=== PATIENT | female | born 1990 | race Caucasian/White ===

== ENCOUNTER 2018-02-28 13:09 | Emergency (ER) | payer OTHER, MEDICAID, SELFPAY ==
[2018-02-28 13:13] VITALS: BP 155/84; PULSE 78; RESP 18; TEMP 36.2; O2SAT 99; BMI 44.9
[2018-02-28 13:49] LABS: Bacteria Urine None Seen
[2018-02-28 14:00] LABS: RBC Urine 0-1/HPF (0-5/HPF); Squamous Epithelial Cell Urine 1-5 /HPF; WBC Urine 0-1/HPF (0-5/HPF)
[2018-02-28 14:01] LABS: Culture Indicated Urine Cult Not Indicated
[2018-02-28] MEDS: KETOROLAC 60 MG/2 ML VIAL IM (16:09)
[2018-02-28 16:28] LABS: Add Manual Diff / Slide Review NO; Basophils Percent Auto 0.9 % (0-2); Eosinophils Percent Auto 3.1 % (2-4); Hematocrit 40.9 % (36-46); Hemoglobin 13.3 g/dL (12.0-16.0); Lymphocytes Percent Auto 30.6 % (25-40); Mean Corpuscular HGB Conc 32.6 % (30-36); Mean Corpuscular Volume 79.9 fL (80-100); Monocytes Percent Auto 6.5 % (3-14); Neutrophils Absolute Auto 5100 /uL (3000-5900); Neutrophils Percent Auto 58.9 % (50-75); Platelet Count 356 X10^3/uL (150-400); Red Blood Cell Count 5.12 X10^6/uL (4.0-5.2); Red Cell Distribution Width 14.9 % (11.6-14.8); White Blood Cell Count 8.6 X10^3/uL (4.5-11.0)
--- NOTE | 2018-02-28 16:28 | ED.ABDPAIN ---
HPI - Abdominal Pain General Chief Complaint: Abdominal Pain Stated Complaint: GASTRITIS DISCOMFORT IN STOMACH Time Seen by Provider: 02/28/18 15:51 Source: patient Mode of arrival: ambulatory Limitations: no limitations History of Present Illness HPI narrative: Patient is a 27-year-old female who presents with ongoing abdominal pain and diarrhea for the last 2 months. She says that she was multiple times a day every time she eats. She has not lost any weight. She sometimes has nausea and vomiting. Diarrhea wakes her from her sleep at night. It is loose and runny nonbloody. He is told by walk-in clinic today at she probably needs an ultrasound and come to the ED. She has lower abdominal pain and discomfort no upper quadrant pain. MD complaint: abdominal pain Related Data Home Medications Medication Instructions Recorded Confirmed hydroxyzine pamoate 25 mg PO PRN #112 cap 12/16/17 02/28/18 lamotrigine 150 mg PO QPM #28 12/16/17 02/28/18 prazosin 1 mg PO HS #28 cap 12/16/17 02/28/18 trazodone 100 mg PO HS #28 12/16/17 02/28/18 asenapine [Saphris (black bedolla)] 02/28/18 citalopram 20 mg PO DAILY 02/28/18 02/28/18 gabapentin 300 mg PO DAILY 02/28/18 02/28/18 hydroxyzine pamoate 02/28/18 lurasidone [Latuda] 40 mg PO DAILY 02/28/18 02/28/18 mirtazapine 7.5 mg PO DAILY 02/28/18 02/28/18 Previous Rx's Medication Instructions Recorded metformin [Glucophage XR] 500 mg PO BID #60 tab 11/05/17 loperamide 2 mg capsule 2 mg PO Q2-4H PRN #60 cap 02/28/18 omeprazole 40 mg capsule,delayed 40 mg PO DAILY #30 cap 02/28/18 release Allergies Allergy/AdvReac Type Severity Reaction Status Date / Time No Known Drug Allergies Allergy Verified 02/28/18 13:13 Review of Systems Review of Systems All systems reviewed & are unremarkable except as noted in HPI and below Constitutional Denies frequent falls ENT Ears, Nose, Mouth, and Throat: Denies dizziness Cardiovascular Denies dyspnea and Denies dyspnea on exertion Respiratory Denies cough, Denies dyspnea, Denies dyspnea on exertion and Denies wheezing Gastrointestinal Gastrointestinal: Reports system reviewed and no additional complaints, except as docu, Reports change in bowel habits and Reports loose stools Musculoskeletal Denies numbness Neurologic Denies behavioral changes, Denies confusion, Denies dizziness, Denies frequent falls and Denies numbness Psychiatric Denies behavioral changes and Denies confusion Allergic/Immunologic Denies wheezing PFSH Medical History Bipolar 1 disorder (Acute) Family History Father Age: 48 Hypertension Mental health problem Mother Age: 44 Cancer Grandmother Age: 76 Cancer Mental health problem Sister Age: 29 Palsy Social History Smoking Status: Current every day smoker alcohol intake: never substance use type: does not use Exam Initial Vital Signs Initial Vital Signs: Vital Signs Temperature 97.2 F L 02/28/18 13:13 Pulse Rate 78 02/28/18 13:13 Respiratory Rate 18 02/28/18 13:13 Blood Pressure 155/84 H 02/28/18 13:13 Pulse Oximetry 99 02/28/18 13:13 GENERAL: Well-appearing, well-nourished and in no acute distress. HEENT: Head atraumatic,EOMI, pupils reactive CARDIOVASCULAR: Regular rate and rhythm without murmurs, rubs or gallops. RESPIRATORY: Breath sounds equal bilaterally, no wheezes rales or rhonchi. ABDOMEN: Soft, nontender. Normoactive bowel sounds all 4 quadrants. No guarding or rebound. No right upper quadrant pain negative Sanchez : No CVA tenderness EXTREMITIES: Normal range of motion, no clubbing or edema. Neurovascularly intact NEUROLOGICAL: Alert and oriented x4.Normal gait and speech. SKIN: Warm, dry, no laceration, no petechiae, no rashes or lesions. Course Orders Ordered: ED Orders 02/28/18 13:17 Urine Microscopic Stat 02/28/18 16:17 Complete Blood Count AUTO DIFF Stat Comprehensive Metabolic Panel Stat Lipase Stat Discontinued Medications Ketorolac Tromethamine (Toradol) 60 mg IM NOW ONE Stop: 02/28/18 15:58 Last Admin: 02/28/18 16:09 Dose: 60 mg Vital Signs - 8 hr 02/28/18 13:13 02/28/18 17:09 Temperature 97.2 F L Pulse Rate 78 64 Respiratory Rate 18 Blood Pressure 155/84 H 122/76 H Pulse Oximetry 99 100 MDM - Abdominal Pain Lab Data Result diagrams: 02/28/18 16:17 06/29/18 16:17 Lab Results 02/28/18 02/28/18 02/28/18 Range/Units 13:17 16:17 16:17 WBC 8.6 (4.5-11.0) X10^3/uL RBC 5.12 (4.0-5.2) X10^6/uL Hgb 13.3 (12.0-16.0) g/dL Hct 40.9 (36-46) % MCV 79.9 L (80-100) fL MCH 26.0 (26-34) PG MCHC 32.6 (30-36) % RDW 14.9 H (11.6-14.8) % Plt Count 356 (150-400) X10^3/uL Neut % (Auto) 58.9 (50-75) % Lymph % (Auto) 30.6 (25-40) % [place] % (Auto) 6.5 (3-14) % Eos % (Auto) 3.1 (2-4) % Baso % (Auto) 0.9 (0-2) % Neut # (Auto) 5100 (7895-5189) /uL Sodium 140 (137-145) mmol/L Potassium 4.1 (3.4-5.1) mmol/L Chloride 104 (98-107) mmol/L Carbon Dioxide 26 (22-32) mmol/L BUN 7 (7-17) mg/dL Creatinine 0.80 (0.52-1.04) mg/dL Estimated GFR > 60.0 (>60) mL/min BUN/Creatinine Ratio 8.8 (6-22) Glucose 78 (70-100) mg/dL Calcium 9.1 (8.4-10.2) mg/dL Total Bilirubin 0.5 (0.2-1.3) mg/dL AST 30 (14-36) IU/L ALT 45 (9-52) IU/L Alkaline Phosphatase 83 (38-126) U/L Total Protein 7.6 (6.3-8.2) g/dL Albumin 4.4 (3.5-5.0) g/dL Globulin 3.2 (1.7-4.1) g/dL Albumin/Globulin Ratio 1.4 (1.0-2.8) Lipase 57 (23-300) U/L Urine RBC 0-1/hpf (0-5/HPF) Urine WBC 0-1/hpf (0-5/HPF) Ur Squamous Epith Cells 1-5 /hpf Urine Bacteria None seen (None) Ur Culture Indicated? Cult not indicated Micro UA Comment Not Reportable Point of care testing: Point of Care Testing Test Results Negative Urine Dip Bedside Urine Glucose Negative Bedside Urine Bilirubin + 1 Bedside Urine Ketone + 15 Urine Specific [place] 1.030 Bedside Urine Occult Blood - Negative Bedside Urine pH 6.0 Bedside Urine Protein +/- 15 Bedside Urine Urobilinogen - Negative Bedside Urine Nitrite - Negative Bedside Urine Leukocytes - Negative Esterase MDM Narrative Medical decision making narrative: Patient has chronic ongoing diarrhea without any abnormalities and blood work. No right upper quadrant pain, no sign of acute cholecystitis no need for ultrasound at this time. Discharge Plan Departure Patient Disposition: Home, Self-Care Clinical Impression: Diarrhea Discharge Date/Time: 02/28/18 17:11 Interventions: ED Discharge Assessment Last Done: 02/28/18 17:09 Instructions: Diarrhea Activity Restrictions/Additional Instructions: *You have been diagnosed with diarrhea *What to do: Blood work within normal limits, no need for ultrasound at this, follow up with primary care provider for further evaluation *Continue to take medications as directed *Follow up with your primary care provider in 2-3 days *Return to ER if you should have any new, worsening or concerning symptoms Prescriptions: No Action loperamide [Anti-Diarrheal (loperamide)] 2 mg capsule 2 mg PO Q2-4H PRN (Reason: loose stool) Qty: 60 RF: 0 omeprazole 40 mg capsule,delayed release(DR/EC) 40 mg PO DAILY Qty: 30 RF: 0 metformin [Glucophage XR] 500 MG tablet extended release 24 hr 500 mg PO BID Qty: 60 RF: 3 lamotrigine 150 MG tablet 150 mg PO QPM Qty: 28 RF: 0 prazosin 1 MG capsule 1 mg PO HS Qty: 28 RF: 0 hydroxyzine pamoate 25 MG capsule 25 mg PO PRN Qty: 112 RF: 0 trazodone 100 MG tablet 100 mg PO HS Qty: 28 RF: 0 hydroxyzine pamoate 50 mg capsule RF: 0 citalopram 20 mg tablet 20 mg PO DAILY RF: 0 gabapentin 300 mg capsule 300 mg PO DAILY RF: 0 mirtazapine 15 mg tablet 7.5 mg PO DAILY RF: 0 asenapine [Saphris (black bedolla)] 10 mg tablet, sublingual RF: 0 lurasidone [Latuda] 40 mg tablet 40 mg PO DAILY RF: 0 Referrals: Karuna Caceres DO [Primary Care Provider] -
[2018-02-28 16:40] LABS: Alanine Aminotransferase 45 IU/L (9-52); Albumin 4.4 g/dL (3.5-5.0); Albumin Globulin Ratio 1.4 (1.0-2.8); Alkaline Phosphatase 83 U/L (38-126); Aspartate Aminotransferase 30 IU/L (14-36); BUN Creatinine Ratio 8.8 (6-22); Bilirubin Total 0.5 mg/dL (0.2-1.3); Blood Urea Nitrogen 7 mg/dL (7-17); Calcium 9.1 mg/dL (8.4-10.2); Carbon Dioxide 26 mmol/L (22-32); Chloride 104 mmol/L (98-107); Estimated Glomerular Filt Rate > 60.0 mL/min (>60); Globulin 3.2 g/dL (1.7-4.1); Glucose 78 mg/dL (70-100); HEMOLYSIS < 15 (0-50); Lipase 57 U/L (23-300); Potassium 4.1 mmol/L (3.4-5.1); Sodium 140 mmol/L (137-145); Total Protein 7.6 g/dL (6.3-8.2)
[2018-02-28 17:09] VITALS: BP 122/76; PULSE 64; O2SAT 100
== END 2018-02-28 17:11 | disposition home or self-care (01) ==
PROVIDERS: Emergency Provider Emergency Medicine; PCP Family Medicine
DX: R19.7 Diarrhea, unspecified (principal)
CPT/HCPCS: 36415; 80053; 81003; 81015; 81025; 83690; 85025; 96372; 99282; 99283; J1885

== ENCOUNTER → 2018-03-25 11:39 | Outpatient (CLI) | payer OTHER, MEDICAID, SELFPAY | PROVIDERS: PCP Family Medicine; Visit Provider Family Medicine | DX: Z13.29 Encounter for screening for other suspected endocrine disorder (principal); Z13.220 Encounter for screening for lipoid disorders; Z13.1 Encounter for screening for diabetes mellitus; R73.9 Hyperglycemia, unspecified ==

== ENCOUNTER → 2018-03-27 09:08 | Outpatient (CLI) | payer OTHER, MEDICAID, SELFPAY ==
[2018-03-27 10:51] LABS: Alanine Aminotransferase 33 IU/L (9-52); Albumin 4.2 g/dL (3.5-5.0); Albumin Globulin Ratio 1.4 (1.0-2.8); Alkaline Phosphatase 72 U/L (38-126); Aspartate Aminotransferase 22 IU/L (14-36); BUN Creatinine Ratio 13.8 (6-22); Bilirubin Total 0.3 mg/dL (0.2-1.3); Blood Urea Nitrogen 11 mg/dL (7-17); Calcium 9.4 mg/dL (8.4-10.2); Carbon Dioxide 24 mmol/L (22-32); Chloride 107 mmol/L (98-107); Cholesterol 208 mg/dL (140-199); Estimated Glomerular Filt Rate > 60.0 mL/min (>60); Glucose 88 mg/dL (70-100); HDL Cholesterol 44 mg/dL (40-60); HEMOLYSIS < 15 (0-50); LDL Cholesterol Calculated 145 mg/dL (<100); Potassium 4.2 mmol/L (3.4-5.1); Sodium 141 mmol/L (137-145); Total Protein 7.2 g/dL (6.3-8.2); Triglycerides 93 mg/dL (35-150)
[2018-03-27 10:54] LABS: Add Manual Diff / Slide Review NO; Basophils Percent Auto 0.8 % (0-2); Eosinophils Percent Auto 2.3 % (2-4); Hematocrit 39.7 % (36-46); Hemoglobin 13.1 g/dL (12.0-16.0); Lymphocytes Percent Auto 22.1 % (25-40); Mean Corpuscular HGB Conc 33.1 % (30-36); Mean Corpuscular Hemoglobin 26.4 PG (26-34); Mean Corpuscular Volume 79.8 fL (80-100); Monocytes Percent Auto 8.2 % (3-14); Neutrophils Absolute Auto 5500 /uL (3000-5900); Neutrophils Percent Auto 66.6 % (50-75); Platelet Count 336 X10^3/uL (150-400); Red Blood Cell Count 4.98 X10^6/uL (4.0-5.2); Red Cell Distribution Width 15.1 % (11.6-14.8); White Blood Cell Count 8.3 X10^3/uL (4.5-11.0)
[2018-03-27 11:03] LABS: Creatinine Urine Random 179.1 mg/dL
[2018-03-27 11:08] LABS: Microalbumi Creatinin Ratio Ur 4.4 ug/mg CR (<30); Microalbumin Urine Random 0.8 mg/dL (0-1.6)
[2018-03-27 11:11] LABS: Hemoglobin A1C% w Est Avg Glu 5.1 % (4.0-6.0)
[2018-03-27 11:33] LABS: Thyroid Stimulating Hormone 1.49 uIU/mL (0.47-4.68)
== END ==
PROVIDERS: PCP Family Medicine; Visit Provider Family Medicine
DX: R73.9 Hyperglycemia, unspecified (principal); Z13.1 Encounter for screening for diabetes mellitus; Z13.220 Encounter for screening for lipoid disorders; Z13.29 Encounter for screening for other suspected endocrine disorder
CPT/HCPCS: 36415; 80053; 80061; 82043; 82570; 83036; 84443; 85025

== ENCOUNTER 2018-04-27 19:53 | Emergency (ER) | payer OTHER, MEDICAID, SELFPAY ==
[2018-04-27 20:05] VITALS: BP 132/88; PULSE 80; RESP 14; TEMP 36.6; O2SAT 100; BMI 44.0
--- NOTE | 2018-04-27 20:26 | ED.BACK ---
HPI - Back Pain/Injury <Yumiko Camara PA-C - Last Filed: 04/27/18 22:08> General Chief Complaint: Back Pain/Injury Stated Complaint: SCIATIC PAIN Time Seen by Provider: 04/27/18 20:57 Source: patient Mode of arrival: wheelchair Limitations: no limitations History of Present Illness HPI Narrative: This 27-year-old female with a history of lumbar H & P and sciatica comes in this evening due to exacerbation. She has been seeing her PCP for this. She has been taking cyclobenzaprine, Vicodin, and Flexeril without relief. 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 No specific injury but has had even more pain. She had also tried Aleve and ibuprofen without relief as well as ice and heat. She states that this feels like a bad exacerbation of her typical sciatica pain, worse on the left side, but also has pain across her back and sometimes moves up into her thoracic area off and on. She states that the pain radiates down her left leg. She denies any new fever. She denies any new bowel or bladder symptoms. She denies any new weakness in her legs or other new complaints on systems review. She denies any changes in her medical history since visit a few days ago with PCP. She denies any possibility of and uses her NuvaRing reliably Related Data Previous Rx's Medication Instructions Recorded citalopram 20 mg tablet 20 mg PO DAILY #30 tab 03/26/18 lamotrigine 150 mg tablet 150 mg PO QPM #30 tab 03/26/18 mirtazapine 15 mg tablet 7.5 mg PO DAILY #30 tab 03/26/18 prazosin 1 mg capsule 1 mg PO HS #30 cap 03/26/18 trazodone 100 mg tablet 100 mg PO HS #30 tab 03/26/18 cyclobenzaprine 10 mg tablet 10 mg PO BEDTIME #30 tab 04/23/18 lurasidone 40 mg tablet 40 mg PO DAILY #30 tab 04/23/18 gabapentin 300 mg PO Q8H #15 cap 04/27/18 Allergies Allergy/AdvReac Type Severity Reaction Status Date / Time No Known Drug Allergies Allergy Verified 04/27/18 20:09 Review of Systems <Yumiko Camara PA-C - Last Filed: 04/27/18 22:08> Review of Systems All systems reviewed & are unremarkable except as noted in HPI and below Exam <Yumiko Camara PA-C - Last Filed: 04/27/18 22:08> Narrative Exam Narrative: GENERAL APPEARANCE: Patient lying on her right side, in NAD PULMONARY: Lungs clear to auscultation bilaterally CV: Regular rhythm regular without murmur, normal S1 and S2, no S3 or S4 MUSCULOSKELETAL: She has some generalized mid to inferior lumbar tenderness, more on the left. Most tenderness over the left SI joint. Mild on the right. She has reduced range of motion of the trunk secondary to tenderness. She is able to move from supine to sit and stand on her own and ambulate to the restroom. Lower extremity strength 5/5 bilateral hip flexors, knee extensors, foot plantar flexion. Negative modified straight leg raise bilaterally NEUROLOGIC: Bilateral patellar and Achilles DTRs 2+ Initial Vital Signs Initial Vital Signs: Vital Signs Temperature 97.9 F 04/27/18 20:05 Pulse Rate 80 04/27/18 20:05 Respiratory Rate 14 04/27/18 20:05 Blood Pressure 132/88 H 04/27/18 20:05 Pulse Oximetry 100 04/27/18 20:05 <Aleks Corral DO - Last Filed: 04/28/18 00:14> Initial Vital Signs Initial Vital Signs: Vital Signs Temperature 97.9 F 04/27/18 20:05 Pulse Rate 80 04/27/18 20:05 Respiratory Rate 14 04/27/18 20:05 Blood Pressure 132/88 H 04/27/18 20:05 Pulse Oximetry 100 04/27/18 20:05 Course <Yumiko Camara PA-C - Last Filed: 04/27/18 22:08> Additional Information: Patient appeared more comfortable prior to discharge, was chatting with her friend at on her cell phone though she reported continued pain. She will try gabapentin tonight and has had a Toradol injection. Advised she can take a [place] tonight when she returns home. She will remain off work tomorrow since her symptoms worsened significantly today, however encouraged continued activity and gentle walking, but to avoid twisting and lifting. She will get in touch with her PCP tomorrow regarding follow-up and her physical therapy referral. She was warned not to drive while using current medications due to possible drowsiness. She agreed to return if any acutely worsening symptoms. Orders Ordered: Discontinued Medications Gabapentin (Neurontin) 300 mg PO NOW ONE Stop: 04/27/18 21:14 Last Admin: 04/27/18 21:38 Dose: 300 mg Ketorolac Tromethamine (Toradol) 60 mg IM NOW ONE Stop: 04/27/18 21:14 Last Admin: 04/27/18 21:22 Dose: 60 mg Vital Signs - 8 hr 04/27/18 20:05 04/27/18 21:30 04/27/18 22:11 Temperature 97.9 F 97.9 F Pulse Rate 80 68 77 Respiratory Rate 14 16 16 Blood Pressure 132/88 H 155/81 H Blood Pressure [Left Wrist] 148/97 H Pulse Oximetry 100 98 97 <Aleks Corral DO - Last Filed: 04/28/18 00:14> Orders Ordered: Discontinued Medications Gabapentin (Neurontin) 300 mg PO NOW ONE Stop: 04/27/18 21:14 Last Admin: 04/27/18 21:38 Dose: 300 mg Ketorolac Tromethamine (Toradol) 60 mg IM NOW ONE Stop: 04/27/18 21:14 Last Admin: 04/27/18 21:22 Dose: 60 mg Vital Signs - 8 hr 04/27/18 20:05 04/27/18 21:30 04/27/18 22:11 Temperature 97.9 F 97.9 F Pulse Rate 80 68 77 Respiratory Rate 14 16 16 Blood Pressure 132/88 H 155/81 H Blood Pressure [Left Wrist] 148/97 H Pulse Oximetry 100 98 97 Discharge Plan Departure Patient Disposition: Home Clinical Impression: Sciatica, Muscle spasm, Sacro-iliac pain Discharge Date/Time: 04/27/18 22:11 Interventions: ED Discharge Assessment Last Done: 04/27/18 22:11 Instructions: DI for Sciatica, DI Sacroiliac Joint Dysfunction Activity Restrictions/Additional Instructions: Please return as we talked about if you have any acutely worsening symptoms such as leg weakness or inability to urinate. Otherwise, since you have tried multiple other medications, we have restarted your gabapentin tonight. 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 Please remember this and several of the other medications that you are trying including hydrocodone/acetaminophen, cyclobenzaprine, and diazepam can be sedating and you should not drive while taking them. Please remain off of work tomorrow and call your PCP 1st thing in the morning to set up follow-up and see what is happening with your physical therapy referral. When you go to the pharmacy tomorrow, you may also wish to poultry picker some [id number] 4% lidocaine patches. These are available in various brands. You can wear them all day in your most painful areas to see if there helpful, and you can use them with your oral medications. Prescriptions: New gabapentin 300 mg capsule 300 mg PO Q8H Qty: 15 RF: 0 No Action cyclobenzaprine 10 mg tablet 10 mg PO BEDTIME Qty: 30 RF: 0 citalopram 20 mg tablet 20 mg PO DAILY Qty: 30 RF: 0 lamotrigine 150 mg tablet 150 mg PO QPM Qty: 30 RF: 0 mirtazapine 15 mg tablet 7.5 mg PO DAILY Qty: 30 RF: 0 prazosin 1 mg capsule 1 mg PO HS Qty: 30 RF: 0 trazodone 100 mg tablet 100 mg PO HS Qty: 30 RF: 0 lurasidone 40 mg tablet 40 mg PO DAILY Qty: 30 RF: 0 Referrals: Karuna Caceres DO [Primary Care Provider] - Stand Alone Forms: Work/School Restrictions <Aleks Corral DO - Last Filed: 04/28/18 00:14> [facility] [place] Attestation: I was immediately available in the department for consultation. Documentation has been reviewed. I agree with assessment and plan.
[2018-04-27] MEDS: KETOROLAC 60 MG/2 ML VIAL IM (21:22)
[2018-04-27 21:30] VITALS: BP 148/97; PULSE 68; RESP 16; TEMP 36.6; O2SAT 98
[2018-04-27] MEDS: GABAPENTIN 300 MG CAPSULE PO (21:38)
--- NOTE | 2018-04-27 21:41 | PC.NURSE ---
pt states kaleb been dealing with this for a long time, I have sciatica. pt reports a 10/10 pain. pt is supine on stretcher calm and cooperative talking on her cell phone.
[2018-04-27 22:11] VITALS: BP 155/81; PULSE 77; RESP 16; O2SAT 97
== END 2018-04-27 22:11 | disposition home or self-care (01) ==
PROVIDERS: Emergency Provider Internal Medicine; PCP Family Medicine
DX: M54.40 Lumbago with sciatica, unspecified side (principal)
CPT/HCPCS: 96372; 99282; 99283; J1885

== ENCOUNTER 2018-05-02 22:03 | Emergency (ER) | payer OTHER, MEDICAID, SELFPAY ==
[2018-05-02 22:24] VITALS: BP 135/78; PULSE 67; RESP 16; TEMP 36.8; O2SAT 97; BMI 44.8
--- NOTE | 2018-05-03 00:17 | ED.BACK ---
HPI - Back Pain/Injury General Chief Complaint: Back Pain/Injury Stated Complaint: LOWER BACK PAIN TOWARDS NECK Time Seen by Provider: 05/03/18 00:00 Source: patient Mode of arrival: ambulatory Limitations: no limitations History of Present Illness HPI Narrative: 27-year-old with long history of sciatica presents with ongoing pain. She denies any evolution of the symptoms and states it is no worse than normal but she continues to be in pain. As an outpatient she is being treated with Valium, Flexeril, Vicodin, prednisone, gabapentin. She has an upcoming appointment with physical therapy. She has never had an MRI and denies any history of referral to Orthopedics. She denies any new injury. She has no fever or chills. Her pain is not midline but in her left lower region. She denies any trouble bowel or bladder control. She denies any lower extremity weakness or foot drop. MD Complaint: back pain Onset (ago): year(s) Duration: constant Similar Symptoms Previously: Yes Location: lumbar spine Severity: moderate Quality: burning and sharp Radiation: left leg Relieving factors: immobilization Exacerbating factors: movement and walking Associated symptoms: difficulty walking Treatments prior to arrival: other medications and prescription analgesics Related Data Previous Rx's Medication Instructions Recorded citalopram 20 mg tablet 20 mg PO DAILY #30 tab 03/26/18 lamotrigine 150 mg tablet 150 mg PO QPM #30 tab 03/26/18 mirtazapine 15 mg tablet 7.5 mg PO DAILY #30 tab 03/26/18 prazosin 1 mg capsule 1 mg PO HS #30 cap 03/26/18 trazodone 100 mg tablet 100 mg PO HS #30 tab 03/26/18 cyclobenzaprine 10 mg tablet 10 mg PO BEDTIME #30 tab 04/23/18 lurasidone 40 mg tablet 40 mg PO DAILY #30 tab 04/23/18 gabapentin 300 mg PO Q8H #15 cap 04/27/18 diazepam 5 mg tablet 5 mg PO BID-TID PRN #18 tab 05/01/18 hydrocodone 5 mg-acetaminophen 325 1 tab PO Q6-8H PRN #18 tab 05/01/18 mg tablet prednisone 20 mg tablet See Label Instructions PO DAILY 10 05/01/18 Days #11 tab Allergies Allergy/AdvReac Type Severity Reaction Status Date / Time No Known Drug Allergies Allergy Verified 05/02/18 22:29 Review of Systems Review of Systems All systems reviewed & are unremarkable except as noted in HPI and below Constitutional Denies chills, Denies fever(s), Denies lethargy and Denies weakness Eyes Denies change in vision, Denies eye discharge, Denies irritation and Denies loss of vision ENT Ears, Nose, Mouth, and Throat: Denies change in voice, Denies neck pain and Denies sore throat Cardiovascular Denies chest pain, Denies irregular heart rhythm, Denies lightheadedness, Denies palpitations, Denies dyspnea, Denies dyspnea on exertion and Denies orthopnea Respiratory Denies cough, Denies dyspnea, Denies dyspnea on exertion and Denies wheezing Gastrointestinal Gastrointestinal: Denies abdominal pain, Denies change in bowel habits, Denies diarrhea, Denies nausea and Denies vomiting Genitourinary Denies hematuria, Denies flank pain, Denies urinary incontinence and Denies urinary urgency Musculoskeletal Reports back pain and Denies neck pain Integumentary/Breasts Denies pruritus, Denies erythema, Denies rash and Denies wounds Neurologic Denies confusion, Denies loss of vision and Denies weakness Psychiatric Denies anxiety, Denies confusion, Denies depression, Denies homicidal ideation and Denies suicidal ideation Endocrine Denies palpitations Hematologic/Lymphatic Denies easy bruising Allergic/Immunologic Denies wheezing PFSH Medical History Bipolar 1 disorder (Acute) ADHD (attention deficit hyperactivity disorder) (Chronic Unknown) Anxiety (Chronic Unknown) Depression (Chronic Unknown) Generalized headaches (Chronic Unknown) Hypertension (Chronic 2012) Migraines (Chronic Unknown) PTSD (post-traumatic stress disorder) (Chronic Unknown) Hx of suicide attempt (Resolved Unknown) Surgical History Hx of section (Resolved Unknown) Hx of myringotomy (Resolved Unknown) Hx of tonsillectomy (Resolved 2003) Family History Father Age: 48 Hypertension Mental health problem Mother Age: 44 Cancer Grandmother Age: 76 Cancer Mental health problem Sister Age: 29 Palsy Social History Smoking Status: Current every day smoker Tobacco: How many years used: 10 alcohol intake: never substance use type: does not use Exam Narrative Exam Narrative: GEN: AOx3 and in mild distress EYES: Pupils are equal, round, and reactive to light and accommodation. Extraoccular muscles are intact bilaterally. There is no subconjunctival hemorrhage or exudate. CHEST: Lungs are clear to auscultation bilaterally and free of wheezes, rales, or rhonchi. Heart rate is regular rhythm, there are no murmurs, clicks, rubs, or gallops. There is no chest wall tenderness. ABD: Abdomen is soft and nontender. There is no guarding or rebound. Bowel sounds are normal in all 4 quadrants. There is no mass or organomegaly. EXT: Full painless ROM of all extremities with no loss of sensation or strength. SKIN: Warm, pink, and dry. No erythema or rash BACK: plating equipment tender but free of any obvious external abnormalities. Patient exam notes decreased range of motion and muscle spasm, but no CVA tenderness, or vertebral point tenderness. There are no symptoms of cauda equina such as saddle anesthesia, and decreased reflexes, decreased sensation or strength. Initial Vital Signs Initial Vital Signs: Vital Signs Temperature 98.3 F 05/02/18 22:24 Pulse Rate 67 05/02/18 22:24 Respiratory Rate 16 05/02/18 22:24 Blood Pressure 135/78 05/02/18 22:24 Pulse Oximetry 97 05/02/18 22:24 Course Orders Ordered: Discontinued Medications Ketorolac Tromethamine (Toradol) 60 mg IM NOW ONE Stop: 05/03/18 01:13 Last Admin: 05/03/18 01:15 Dose: 60 mg Vital Signs - 8 hr 05/02/18 22:24 05/03/18 01:28 Temperature 98.3 F 97.1 F L Pulse Rate 67 61 Respiratory Rate 16 20 Blood Pressure 135/78 Blood Pressure [Left Arm] 124/78 Pulse Oximetry 97 97 Discharge Plan Departure Patient Disposition: Home Clinical Impression: Lumbar disc disease with radiculopathy Discharge Date/Time: 05/03/18 01:44 Interventions: ED Discharge Assessment Last Done: 05/03/18 01:39 Instructions: DI for Lumbar Radiculopathy Activity Restrictions/Additional Instructions: *You have been diagnosed with [ chronic lumbar radiculopathy ] *What to do: *Take medications as directed *Follow up with your primary care provider in 2-3 days, call for an appointment. Let them know you were seen in the Emergency Department and that we ask that you be seen in follow up. It seems reasonable to consider orthopedic consultation. Have included contact info should she choose to follow up with them *Return to ER if you should have any new, worsening or concerning symptoms Prescriptions: No Action cyclobenzaprine 10 mg tablet 10 mg PO BEDTIME Qty: 30 RF: 0 hydrocodone-acetaminophen [Lorcet (hydrocodone)] 5-325 mg tablet 1 tab PO Q6-8H PRN (Reason: pain) Qty: 18 RF: 0 diazepam 5 mg tablet 5 mg PO BID-TID PRN (Reason: muscle spasm) Qty: 18 RF: 0 prednisone 20 mg tablet See Label Instructions PO DAILY 10 Days Qty: 11 RF: 0 citalopram 20 mg tablet 20 mg PO DAILY Qty: 30 RF: 0 lamotrigine 150 mg tablet 150 mg PO QPM Qty: 30 RF: 0 mirtazapine 15 mg tablet 7.5 mg PO DAILY Qty: 30 RF: 0 prazosin 1 mg capsule 1 mg PO HS Qty: 30 RF: 0 trazodone 100 mg tablet 100 mg PO HS Qty: 30 RF: 0 lurasidone 40 mg tablet 40 mg PO DAILY Qty: 30 RF: 0 gabapentin 300 mg capsule 300 mg PO Q8H Qty: 15 RF: 0 Referrals: Estiven Miranda MD [Physician] - Karnua Caceres DO [Primary Care Provider] -
[2018-05-03] MEDS: KETOROLAC 60 MG/2 ML VIAL IM (01:15)
[2018-05-03 01:28] VITALS: BP 124/78; PULSE 61; RESP 20; TEMP 36.2; O2SAT 97
== END 2018-05-03 01:44 | disposition home or self-care (01) ==
PROVIDERS: Emergency Provider Emergency Medicine; PCP Family Medicine
DX: M54.16 Radiculopathy, lumbar region (principal)
CPT/HCPCS: 96372; 99282; 99283; J1885

== ENCOUNTER 2018-05-14 22:05 | Emergency (ER) | payer OTHER, MEDICAID, SELFPAY ==
[2018-05-14 22:46] VITALS: BP 154/90; PULSE 107; RESP 18; TEMP 37.2; O2SAT 97
[2018-05-14 22:55] VITALS: BP 154/90; PULSE 107; RESP 18; TEMP 37.2; O2SAT 97
[2018-05-15 01:24] VITALS: BP 154/90; PULSE 107; RESP 18; TEMP 37.2; O2SAT 97
--- NOTE | 2018-05-16 04:54 | ED_ITS ---
HPI - URI/Sore Throat General Chief Complaint: Upper Respiratory Symptoms Stated Complaint: ITCHY THROAT, CHILLS Time Seen by Provider: 05/15/18 00:02 Source: patient Mode of arrival: ambulatory Limitations: no limitations History of Present Illness HPI Narrative: 27-year-old patient well known to myself and other staff with chronic back pain presents with typical URI symptoms including runny nose, sore throat and hacking cough. She denies any significant fever, productive sputum or chest pain. She is not dizzy nor weak or lightheaded. She denies nausea, vomiting or diarrhea. MD Complaint: rhinorrhea and nasal congestion Onset (ago): day(s) Duration: constant Severity: mild Related Data Home Medications Medication Instructions Recorded Confirmed lurasidone 40 mg tablet 80 mg PO DAILY tab 05/14/18 Previous Rx's Medication Instructions Recorded citalopram 20 mg tablet 20 mg PO DAILY #30 tab 03/26/18 lamotrigine 150 mg tablet 150 mg PO QPM #30 tab 03/26/18 mirtazapine 15 mg tablet 7.5 mg PO DAILY #30 tab 03/26/18 prazosin 1 mg capsule 1 mg PO HS #30 cap 03/26/18 trazodone 100 mg tablet 100 mg PO HS #30 tab 03/26/18 cyclobenzaprine 10 mg tablet 10 mg PO BEDTIME #30 tab 04/23/18 diazepam 5 mg tablet 5 mg PO BID-TID PRN #18 tab 05/01/18 hydrocodone 5 mg-acetaminophen 325 1 tab PO Q6-8H PRN #18 tab 05/01/18 mg tablet Allergies Allergy/AdvReac Type Severity Reaction Status Date / Time No Known Drug Allergies Allergy Verified 05/14/18 09:52 Review of Systems Review of Systems All systems reviewed & are unremarkable except as noted in HPI and below Constitutional Denies chills, Denies fever(s), Denies lethargy and Denies weakness Eyes Denies change in vision, Denies eye discharge, Denies irritation and Denies loss of vision ENT Ears, Nose, Mouth, and Throat: Denies change in voice, Reports nasal congestion , Denies neck pain and Reports sore throat Cardiovascular Denies chest pain, Denies irregular heart rhythm, Denies lightheadedness, Denies palpitations, Denies dyspnea, Denies dyspnea on exertion and Denies orthopnea Respiratory Reports chest congestion, Reports cough, Denies dyspnea, Denies dyspnea on exertion and Denies wheezing Gastrointestinal Gastrointestinal: Denies abdominal pain, Denies change in bowel habits, Denies diarrhea, Denies nausea and Denies vomiting Genitourinary Denies hematuria, Denies flank pain, Denies urinary incontinence and Denies urinary urgency Musculoskeletal Denies neck pain Integumentary/Breasts Denies pruritus, Denies erythema, Denies rash and Denies wounds Neurologic Denies confusion, Denies loss of vision and Denies weakness Psychiatric Denies anxiety, Denies confusion, Denies depression, Denies homicidal ideation and Denies suicidal ideation Endocrine Denies palpitations Hematologic/Lymphatic Denies easy bruising Allergic/Immunologic Denies wheezing [facility] Medical History Bipolar 1 disorder (Acute) ADHD (attention deficit hyperactivity disorder) (Chronic Unknown) Anxiety (Chronic Unknown) Depression (Chronic Unknown) Generalized headaches (Chronic Unknown) Hypertension (Chronic 2012) Migraines (Chronic Unknown) PTSD (post-traumatic stress disorder) (Chronic Unknown) Hx of suicide attempt (Resolved Unknown) Surgical History Hx of section (Resolved Unknown) Hx of myringotomy (Resolved Unknown) Hx of tonsillectomy (Resolved 2004) Family History Father Age: 48 Hypertension Mental health problem Mother Age: 44 Cancer Grandmother Age: 76 Cancer Mental health problem Sister Age: 29 Palsy Social History Smoking Status: Current every day smoker Tobacco: How many years used: 10 alcohol intake: never substance use type: does not use Exam Narrative Exam Narrative: GEN: AOx3 and in mild distress EYES: Pupils are equal, round, and reactive to light and accommodation. Extraoccular muscles are intact bilaterally. There is no subconjunctival hemorrhage or exudate. ENT: nasal congestion, post nasal drip CHEST: Lungs are clear to auscultation bilaterally and free of wheezes, rales, or rhonchi. Heart rate is regular rhythm, there are no murmurs, clicks, rubs, or gallops. There is no chest wall tenderness. ABD: Abdomen is soft and nontender. There is no guarding or rebound. Bowel sounds are normal in all 4 quadrants. There is no mass or organomegaly. EXT: Full painless ROM of all extremities with no loss of sensation or strength. SKIN: Warm, pink, and dry. No erythema or rash Initial Vital Signs Initial Vital Signs: Vital Signs Temperature 99 F 05/14/18 22:46 Pulse Rate 107 H 05/14/18 22:46 Respiratory Rate 18 05/14/18 22:46 Blood Pressure 154/90 H 05/14/18 22:46 Pulse Oximetry 97 05/14/18 22:46 Course Vital Signs - 8 hr 05/14/18 22:46 05/14/18 22:55 05/15/18 01:24 Temperature 99 F 99 F 99 F Pulse Rate 107 H 107 H 107 H Respiratory Rate 18 18 18 Blood Pressure 154/90 H 154/90 H 154/90 H Pulse Oximetry 97 97 97 MDM - URI/Sore Throat Lab Data Point of Care Testing Rapid Strep A Negative Discharge Plan Departure Patient Disposition: Home Clinical Impression: Upper respiratory infection, viral Discharge Date/Time: 05/15/18 02:30 Interventions: ED Discharge Assessment Last Done: 05/15/18 02:30 Instructions: Common Cold Activity Restrictions/Additional Instructions: *You have been diagnosed with [acute viral upper respiratory infection ] *What to do: *Take medications as directed: over the counter cough and cold medicine *Follow up with your primary care provider in 2-3 days, call for an appointment. Let them know you were seen in the Emergency Department and that we ask that you be seen in follow up *Return to ER if you should have any new, worsening or concerning symptoms Prescriptions: No Action cyclobenzaprine 10 mg tablet 10 mg PO BEDTIME Qty: 30 RF: 0 hydrocodone-acetaminophen [Lorcet (hydrocodone)] 5-325 mg tablet 1 tab PO Q6-8H PRN (Reason: pain) Qty: 18 RF: 0 diazepam 5 mg tablet 5 mg PO BID-TID PRN (Reason: muscle spasm) Qty: 18 RF: 0 lurasidone 40 mg tablet 80 mg PO DAILY RF: 0 citalopram 20 mg tablet 20 mg PO DAILY Qty: 30 RF: 0 lamotrigine 150 mg tablet 150 mg PO QPM Qty: 30 RF: 0 mirtazapine 15 mg tablet 7.5 mg PO DAILY Qty: 30 RF: 0 prazosin 1 mg capsule 1 mg PO HS Qty: 30 RF: 0 trazodone 100 mg tablet 100 mg PO HS Qty: 30 RF: 0
== END 2018-05-15 02:30 | disposition home or self-care (01) ==
PROVIDERS: Emergency Provider Emergency Medicine; Family Provider Family Medicine; PCP Family Medicine
DX: J06.9 Acute upper respiratory infection, unspecified (principal); B97.89 Other viral agents as the cause of diseases classified elsewhere
CPT/HCPCS: 87880; 99282

== ENCOUNTER 2018-06-24 09:00 | Outpatient (RCR) | payer OTHER, MEDICAID, SELFPAY ==
--- NOTE | 2018-05-21 16:00 | PT.OIE ---
Current Diagnoses Sciatica, unspecified side (05/21/18) Muscle spasm of back (05/21/18) Past Medical History (Last Reviewed 05/16/18 @ 04:55 by Aleks Corral DO) Bipolar 1 disorder (Acute) ADHD (attention deficit hyperactivity disorder) (Chronic Unknown) Anxiety (Chronic Unknown) Depression (Chronic Unknown) Generalized headaches (Chronic Unknown) Hypertension (Chronic 2012) Migraines (Chronic Unknown) PTSD (post-traumatic stress disorder) (Chronic Unknown) Hx of suicide attempt (Resolved Unknown) Past Surgical History (Last Reviewed 05/16/18 @ 04:55 by Aleks Corral DO) Hx of section (Resolved Unknown) Hx of myringotomy (Resolved Unknown) Hx of tonsillectomy (Resolved 2003) Provider Visit Care Team Role Provider Type Karuna Caceres DO Attending Provider Physician Family Provider Primary Care Provider Specialty: Family Practice Address: [address] [place] [address] Email: [email or web address] Physical Therapy Initial Evaluation PT-OP-A Visit Information Start: 05/21/18 12:25 Freq: Status: Active Protocol: Document 05/21/18 12:28 EA (Rec: 05/21/18 12:56 EA [id number]) Out-Patient Physical Therapy Visit Information Visit Information Visit Type Initial Evaluation Visit Start Time 09:45 Visit Stop Time 10:20 Total Visit Minutes 35 Visit Number 1 Evaluation Information Evaluation Date 05/21/18 PT-OP-B Current Condition Start: 05/21/18 12:25 Freq: Status: Active Protocol: Document 05/21/18 12:28 EA (Rec: 05/21/18 12:56 EA [id number]) Current Condition History of Current Condition Onset Date 6 years ago Current Complaints Low back pain History of Current Condition Present c/o low back pain started 6 years ago which comes and goes with the use of superficial heating and prescribed pain medication. 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 Patient reports no X-rays and other diagnostic imaging perform in the past. Prior Treatments and Tests Formal skilled PT few years ago and did not completely resolved. Prescribed pain medication and muscle relaxant. Future Testing and Treatments Planned Surgical option if pain do not improve. Treatment Goals Patient/Caregiver Goals Patient wants to eliminate pain so she could perform work without discomfort or limitation. 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 Patient Reported Progress Same Patient Questionnaires Oswestry Low Back Index Oswestry Score 64% Oswestry Impairment 60 to 79% Impaired (Score 60- 79) OP-PT Pain Assessment Pain Assessment Grid Paper Pain Assessment Grid Completed Yes Location Bilateral Lower Back Intensity 6 Scale Used Numeric (1 - 10) Frequency Intermittent Pain Aggravating Factors Standing Sitting Walking Pain Alleviating Factors Heat Medication Patient Stated Pain Goal 2 Home Pain Medication Use Pain Medications Used None at this time Pain Behaviors Pain Behaviors Holding Area PT-OP-J Posture/Palpation/Skin Start: 05/21/18 12:25 Freq: Status: Active Protocol: Document 05/21/18 12:28 EA (Rec: 05/21/18 12:56 EA [id number]) Posture Evaluation Position Standing L-Spine Posture Increased Lordosis Pelvis Posture Anteriorly Tilted Palpation Assessment Location One Palpation Location Bilateral QL, Paralumbars, Upper gluteal and Piriformis Palpation Findings Soft Tissue Tightness Tenderness PT-OP-K Range of Motion Start: 05/21/18 12:25 Freq: Status: Active Protocol: Document 05/21/18 12:28 EA (Rec: 05/21/18 12:56 EA [id number]) Lumbar Spine Range of Motion Lumbar Spine Active Flexion 45 Extension 30 Rotation Left 30 Rotation Right 30 Lateral Flexion Left 25 Lateral Flexion Right 10 ROM Limitations Soft Tissue Tightness Pain PT-OP-L Special Tests Start: 05/21/18 12:25 Freq: Status: Active Protocol: Document 05/21/18 12:28 EA (Rec: 05/21/18 12:56 EA [id number]) Special Tests Lumbar Spine Special Tests Vertical Spine Loading Test Results - Straight Leg Raise Test Results + Comments Both Stork Test Test Results - Hip Special Tests Piriformis Test Results - Other Special Tests Special Tests + Sacral compression test PT-OP-M Strength Start: 05/21/18 12:25 Freq: Status: Active Protocol: Document 05/21/18 12:28 EA (Rec: 05/21/18 12:56 EA [id number]) Hip Strength Hip Manual Muscle Testing Right Flexion (L2) 3+ Fair+ Extension (S1) 4+ Good+ Abduction 4- Good- External Rotation 4 Good Internal Rotation 3+ Fair+ Left Flexion (L2) 3+ Fair+ Extension (S1) 4+ Good+ Abduction 4- Good- External Rotation 4 Good Internal Rotation 3+ Fair+ Knee Strength Knee Manual Muscle Testing Right Comments WFL Left Comments WFL Ankle/Foot Strength Ankle and Foot Manual Muscle Testing Right Comments WFL Left Comments WFL PT-OP-Q Treatments Start: 05/21/18 12:25 Freq: Status: Active Protocol: Document 05/21/18 12:56 EA (Rec: 05/21/18 12:57 EA [id number]) Self-Care/Home Management Treatment Education Patient Education Body Mechanics Home Exercise Program Pain Management Posture PT-OP-T Assessment and Plan Start: 05/21/18 12:25 Freq: Status: Active Protocol: Document 05/21/18 12:28 EA (Rec: 05/21/18 12:56 EA [id number]) Physical Therapy Assessment Rehab Potential Rehabilitation Potential Good Evaluation Complexity Number of Personal Factors/Comorbidities 3 or More Number of Body Systems Impaired 1-2 Clinical Presentation at Evaluation Stable Impairments Impairments Pain Posture ROM Strength Other Concerns Barriers to Rehabilitation Excess body weight Goals Four Impairment Sitting/standing posture tolerance less than 1 hour Duplicating Machine Servicer Goal (LTG) Patient will able to sit and stand > 1 hour with no increase in symptoms. Three Impairment Weakness to both hip flexors, rotators, and trunk stabilizer Correction Goal (LTG) Patient will increase hip flexors, rotators, trunk stabilizer by 1/2 grade to prevent mechanical dysfunction and for improve mobility. LTG Duration 4 wks. Two Impairment Oswestry impairment scale of 64% Duplicating Machine Servicer Goal (LTG) Patient will have Oswetry impairment scale of less than 20% to improve quality of life . LTG Duration 4 wks One Impairment Reported pain of 6/10 at best with standing/sitting and walking Correction Goal (LTG) Patient will report pain less than 2/10 at with standing, sitting and walking LTG Duration 4 wks Assessment Summary Assessment Pleasant 27 y/o F patient with referring diagnosis of sciatica/LBP. Today patient presented with difficulty with positional tolerance due to low back discomfort. Tests reveals limited lumbar spinal mobility with muscle guarding to most of the lumbar spinal planes of movement. SLR test and sacral compression reveals sensitive. Posterior lumbar quadrant test to facets joints is positive but not with neural foramina impingement. Weakness to both hip flexors and internal rotators was noted. Due to patient body dysfunction, she is not able to perform tasks that is normal for her age. In my professional opinion the patient will benefit with skilled PT to improve patient' s functional quality through therapeutic exercises and other conservative approach. Physical Therapy Plan Frequency and Duration Frequency of Treatment 2x/Week Duration of Treatment 8 Plan of Care Start Date 05/21/18 Plan of Care End Date 07/16/18 Therapeutic Interventions Modalities Cold Pack/Ice Massage Electric Stimulation Hot Packs Ultrasound Next Visit Focus/Plan Next Note Type Treatment Note Next Visit Plan Core stab, Flexibility, heat with ES
--- NOTE | 2018-05-21 16:00 | PT.OPPOC ---
Current Diagnoses Sciatica, unspecified side (05/21/18) Muscle spasm of back (05/21/18) Provider Visit Care Team Role Provider Type Karuna Caceres DO Attending Provider Physician Family Provider Primary Care Provider Specialty: Family Practice Address: [address] [place] [address], [id number] Email: [email or web address] Plan Of Care PT-OP-T Assessment and Plan Start: 05/21/18 12:25 Freq: Status: Active Protocol: Document 05/21/18 12:28 CRISTINA (Rec: 05/21/18 12:56 EA [id number]) Physical Therapy Assessment Rehab Potential Rehabilitation Potential Good Evaluation Complexity Number of Personal Factors/Comorbidities 3 or More Number of Body Systems Impaired 1-2 Clinical Presentation at Evaluation Stable Impairments Impairments Pain Posture ROM Strength Other Concerns Barriers to Rehabilitation Excess body weight Goals Four Impairment Sitting/standing posture tolerance less than 1 hour Pumper Gauger Goal (LTG) Patient will able to sit and stand > 1 hour with no increase in symptoms. Three Impairment Weakness to both hip flexors, rotators, and trunk stabilizer Pumper Gauger Goal (LTG) Patient will increase hip flexors, rotators, trunk stabilizer by 1/2 grade to prevent mechanical dysfunction and for improve mobility. LTG Duration 4 wks. Two Impairment Oswestry impairment scale of 64% Pumper Gauger Goal (LTG) Patient will have Oswetry impairment scale of less than 20% to improve quality of life . LTG Duration 4 wks One Impairment Reported pain of 6/10 at best with standing/sitting and walking Pumper Gauger Goal (LTG) Patient will report pain less than 2/10 at with standing, sitting and walking LTG Duration 4 wks Assessment Summary Assessment Pleasant 27 y/o F patient with referring diagnosis of sciatica/LBP. Today patient presented with difficulty with positional tolerance due to low back discomfort. Tests reveals limited lumbar spinal mobility with muscle guarding to most of the lumbar spinal planes of movement. SLR test and sacral compression reveals sensitive. Posterior lumbar quadrant test to facets joints is positive but not with neural foramina impingement. Weakness to both hip flexors and internal rotators was noted. Due to patient body dysfunction, she is not able to perform tasks that is normal for her age. In my professional opinion the patient will benefit with skilled PT to improve patient' s functional quality through therapeutic exercises and other conservative approach. Physical Therapy Plan Frequency and Duration Frequency of Treatment 2x/Week Duration of Treatment 8 Plan of Care Start Date 05/21/18 Plan of Care End Date 07/16/18 Therapeutic Interventions Modalities Cold Pack/Ice Massage Electric Stimulation Hot Packs Ultrasound Next Visit Focus/Plan Next Note Type Treatment Note Next Visit Plan Core stab, Flexibility, heat with ES Plan of Care Dates Plan of Care Start Date 05/21/18 Plan of Care End Date 07/16/18 Please Sign and Return: I have reviewed this Plan of Care and certify that the skilled therapy services above are required to meet the patient?s needs. Physician Signature Date Printed Name and Credentials Clinical Instructor Signature Printed Name and Credentials
--- NOTE | 2018-06-03 12:55 | PT.OTN ---
Current Diagnoses Sciatica, unspecified side (05/21/18) Muscle spasm of back (05/21/18) Physical Therapy Treatment Note PT-OP-A Visit Information Start: 05/21/18 12:25 Freq: Status: Active Protocol: Document 06/03/18 12:54 EA (Rec: 06/03/18 12:55 EA [id number]) Out-Patient Physical Therapy Visit Information Visit Information Visit Type Patient No Show Visit Note No show: left a message to patient voice mail. PT-OP-B Current Condition Start: 05/21/18 12:25 Freq: Status: Active Protocol: Document 05/21/18 12:28 EA (Rec: 05/21/18 12:56 EA [id number]) Current Condition History of Current Condition Onset Date 6 years ago Current Complaints Low back pain History of Current Condition Present c/o low back pain started 6 years ago which comes and goes with the use of superficial heating and prescribed pain medication. 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 Patient reports no X-rays and other diagnostic imaging perform in the past. Prior Treatments and Tests Formal skilled PT few years ago and did not completely resolved. Prescribed pain medication and muscle relaxant. Future Testing and Treatments Planned Surgical option if pain do not improve. Treatment Goals Patient/Caregiver Goals Patient wants to eliminate pain so she could perform work without discomfort or limitation. 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 Patient Reported Progress Same Patient Questionnaires Oswestry Low Back Index Oswestry Score 64% Oswestry Impairment 60 to 79% Impaired (Score 60- 79) OP-PT Pain Assessment Pain Assessment Grid Paper Pain Assessment Grid Completed Yes Location Bilateral Lower Back Intensity 6 Scale Used Numeric (1 - 10) Frequency Intermittent Pain Aggravating Factors Standing Sitting Walking Pain Alleviating Factors Heat Medication Patient Stated Pain Goal 2 Home Pain Medication Use Pain Medications Used None at this time Pain Behaviors Pain Behaviors Holding Area PT-OP-J Posture/Palpation/Skin Start: 05/21/18 12:25 Freq: Status: Active Protocol: Document 05/21/18 12:28 EA (Rec: 05/21/18 12:56 EA [id number]) Posture Evaluation Position Standing L-Spine Posture Increased Lordosis Pelvis Posture Anteriorly Tilted Palpation Assessment Location One Palpation Location Bilateral QL, Paralumbars, Upper gluteal and Periformis Palpation Findings Soft Tissue Tightness Tenderness PT-OP-K Range of Motion Start: 05/21/18 12:25 Freq: Status: Active Protocol: Document 05/21/18 12:28 EA (Rec: 05/21/18 12:56 EA [id number]) Lumbar Spine Range of Motion Lumbar Spine Active Flexion 45 Extension 30 Rotation Left 30 Rotation Right 30 Lateral Flexion Left 25 Lateral Flexion Right 10 ROM Limitations Soft Tissue Tightness Pain PT-OP-L Special Tests Start: 05/21/18 12:25 Freq: Status: Active Protocol: Document 05/21/18 12:28 EA (Rec: 05/21/18 12:56 EA [id number]) Special Tests Lumbar Spine Special Tests Vertical Spine Loading Test Results - Straight Leg Raise Test Results + Comments Both Stork Test Test Results - Hip Special Tests Piriformis Test Results - Other Special Tests Special Tests + Sacral compresson test PT-OP-M Strength Start: 05/21/18 12:25 Freq: Status: Active Protocol: Document 05/21/18 12:28 EA (Rec: 05/21/18 12:56 EA [id number]) Hip Strength Hip Manual Muscle Testing Right Flexion (L2) 3+ Fair+ Extension (S1) 4+ Good+ Abduction 4- Good- External Rotation 4 Good Internal Rotation 3+ Fair+ Left Flexion (L2) 3+ Fair+ Extension (S1) 4+ Good+ Abduction 4- Good- External Rotation 4 Good Internal Rotation 3+ Fair+ Knee Strength Knee Manual Muscle Testing Right Comments WFL Left Comments WFL Ankle/Foot Strength Ankle and Foot Manual Muscle Testing Right Comments WFL Left Comments WFL PT-OP-Q Treatments Start: 05/21/18 12:25 Freq: Status: Active Protocol: Document 05/21/18 12:56 EA (Rec: 05/21/18 12:57 EA [id number]) Self-Care/Home Management Treatment Education Patient Education [employer] Home Exercise Program Pain Management Posture PT-OP-T Assessment and Plan Start: 05/21/18 12:25 Freq: Status: Active Protocol: Document 05/21/18 12:28 EA (Rec: 05/21/18 12:56 EA [id number]) Physical Therapy Assessment Rehab Potential Rehabilitation Potential Good Evaluation Complexity Number of Personal Factors/Comorbidities 3 or More Number of Body Systems Impaired 1-2 Clinical Presentation at Evaluation Stable Impairments Impairments Pain Posture ROM Strength Other Concerns Barriers to Rehabilitation Excess body weight Goals Four Impairment Sitting/standing posture tolerance less than 1 hour [employer] Goal (LTG) Patient will ablt to sit and stand > 1 hour with no increase in symptoms. Three Impairment Weakness to both hip flexors, rotators, and trunk stabilizer [employer] Goal (LTG) Patient will increase hip flexors, rotators, trunk stabilizer by 1/2 grade to prevent mechanical dysfunction and for improve mobility. LTG Duration 4 wks. Two Impairment Oswestry impairment scale of 64% [employer] Goal (LTG) Patient will have Oswetry impairment scale of less than 20% to improve quality of life . LTG Duration 4 wks One Impairment Reported pain of 6/10 at best with standing/sitting and walking Correction Goal (LTG) Patient will report pain less than 2/10 at with standing, sitting and walking LTG Duration 4 wks Assessment Summary Assessment Pleasant 27 y/o F patient with referring diagnosis of sciatica/LBP. Today patient presented with diffficulty with positional tolerance due to low back discomfort. Tests reveals limited lumbar spinal mobility with muscle guarding to most of the lumbar spinal planes of movement. SLR test and sacral compression reveals sensitive. Posterior lumbar quadrant test to facets joints is positive but not with neural foramina impingement. Weakness to both hip flexors and internal rotators was noted. Due to patient body dysfunction, she is not able to perform tasks that is normal for her age. In my professional opinion the patient will benefit with skilled PT to improve patient' s functional quality through therapeutic exercises and other conservative approach. Physical Therapy Plan Frequency and Duration Frequency of Treatment 2x/Week Duration of Treatment 8 Plan of Care Start Date 05/21/18 Plan of Care End Date 07/16/18 Therapeutic Interventions Modalities Cold Pack/Ice Massage Electric Stimulation Hot Packs Ultrasound Next Visit Focus/Plan Next Note Type Treatment Note Next Visit Plan Core stab, Flexibility, heat with ES
--- NOTE | 2018-06-05 15:14 | PT.OTN ---
Current Diagnoses Sciatica, unspecified side (06/05/18) Muscle spasm of back (06/05/18) Physical Therapy Treatment Note PT-OP-A Visit Information Start: 05/21/18 12:25 Freq: Status: Active Protocol: Document 06/05/18 15:08 EA (Rec: 06/05/18 15:14 EA [id number]) Out-Patient Physical Therapy Visit Information Visit Information Visit Type Treatment Note Visit Start Time 14:30 Visit Stop Time 15:15 Total Visit Minutes 45 Visit Number 2 PT-OP-B Current Condition Start: 05/21/18 12:25 Freq: Status: Active Protocol: Document 05/21/18 12:28 EA (Rec: 05/21/18 12:56 EA [id number]) Current Condition History of Current Condition Onset Date 6 years ago Current Complaints Low back pain History of Current Condition Present c/o low back pain started 6 years ago which comes and goes with the use of superficial heating and prescribed pain medication. 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 Patient reports no X-rays and other diagnostic imaging perform in the past. Prior Treatments and Tests Formal skilled PT few years ago and did not completely resolved. Prescribed pain medication and muscle relaxant. Future Testing and Treatments Planned Surgical option if pain do not improve. Treatment Goals Patient/Caregiver Goals Patient wants to eliminate pain so she could perform work without discomfort or limitation. 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 Patient Reported Progress Same PT-OP-J Posture/Palpation/Skin Start: 05/21/18 12:25 Freq: Status: Active Protocol: Document 05/21/18 12:28 EA (Rec: 05/21/18 12:56 EA [id number]) Posture Evaluation Position Standing L-Spine Posture Increased Lordosis Pelvis Posture Anteriorly Tilted Palpation Assessment Location One Palpation Location Bilateral QL, Paralumbars, Upper gluteal and Periformis Palpation Findings Soft Tissue Tightness Tenderness PT-OP-K Range of Motion Start: 05/21/18 12:25 Freq: Status: Active Protocol: Document 05/21/18 12:28 EA (Rec: 05/21/18 12:56 EA [id number]) Lumbar Spine Range of Motion Lumbar Spine Active Flexion 45 Extension 30 Rotation Left 30 Rotation Right 30 Lateral Flexion Left 25 Lateral Flexion Right 10 ROM Limitations Soft Tissue Tightness Pain PT-OP-L Special Tests Start: 05/21/18 12:25 Freq: Status: Active Protocol: Document 05/21/18 12:28 EA (Rec: 05/21/18 12:56 EA [id number]) Special Tests Lumbar Spine Special Tests Vertical Spine Loading Test Results - Straight Leg Raise Test Results + Comments Both Stork Test Test Results - Hip Special Tests Piriformis Test Results - Other Special Tests Special Tests + Sacral compresson test PT-OP-M Strength Start: 05/21/18 12:25 Freq: Status: Active Protocol: Document 05/21/18 12:28 EA (Rec: 05/21/18 12:56 EA [id number]) Hip Strength Hip Manual Muscle Testing Right Flexion (L2) 3+ Fair+ Extension (S1) 4+ Good+ Abduction 4- Good- External Rotation 4 Good Internal Rotation 3+ Fair+ Left Flexion (L2) 3+ Fair+ Extension (S1) 4+ Good+ Abduction 4- Good- External Rotation 4 Good Internal Rotation 3+ Fair+ Knee Strength Knee Manual Muscle Testing Right Comments WFL Left Comments WFL Ankle/Foot Strength Ankle and Foot Manual Muscle Testing Right Comments WFL Left Comments WFL PT-OP-Q Treatments Start: 05/21/18 12:25 Freq: Status: Active Protocol: Document 06/05/18 15:08 EA (Rec: 06/05/18 15:14 EA [id number]) Cardio Equipment Recumbent Stepper (Sci-Fit) Duration (Minutes) 7 Resistance 2 Therapeutic Exercises Supine Exercises 4 Supine Exercise Name figure 4 stretch Side bilateral Reps/Minutes x 15sh x 5 repes each 3 Supine Exercise Name PPT Reps/Minutes x5sh x 10 reps 2 Supine Exercise Name Lower trunk rotation Side bilateral Reps/Minutes x 15SH x 5 reps each side 1 Supine Exercise Name SKTC Side bilateral Reps/Minutes x 5 reps x 15SH Manual Therapy Treatment Soft Tissue Mobilization 1 Mobilization Type Myofascial Release Rolling Sustained Pressure Intensity/Depth Moderate Body Position Prone PT-OP-R Modalities Start: 05/21/18 12:25 Freq: Status: Active Protocol: Document 06/05/18 15:08 EA (Rec: 06/05/18 15:14 EA [id number]) Electric Stimulation Electric Stimulation Interferential Current (IFC) Body Location Paralumabrs and upper gluetals Duration (Minutes) 15 Intensity 18 Contraction Type Normal Combined With Heat/Cold Hot Pack PT-OP-T Assessment and Plan Start: 05/21/18 12:25 Freq: Status: Active Protocol: Document 06/05/18 15:08 EA (Rec: 06/05/18 15:14 EA [id number]) Physical Therapy Assessment Assessment Summary Assessment Tolerated treatment well and educated with HEP. Pt had decreased symptoms after IFC and heat. Physical Therapy Plan Next Visit Focus/Plan Next Note Type Treatment Note Next Visit Plan Continue with current plan.
--- NOTE | 2018-06-10 16:07 | PT.OTN ---
Current Diagnoses Sciatica, unspecified side (06/10/18) Muscle spasm of back (06/10/18) Physical Therapy Treatment Note PT-OP-A Visit Information Start: 05/21/18 12:25 Freq: Status: Active Protocol: Document 06/10/18 11:02 EA (Rec: 06/10/18 11:10 EA [id number]) Out-Patient Physical Therapy Visit Information Visit Information Visit Type Treatment Note Visit Start Time 10:30 Visit Stop Time 11:25 Total Visit Minutes 55 Visit Number 3 PT-OP-B Current Condition Start: 05/21/18 12:25 Freq: Status: Active Protocol: Document 05/21/18 12:28 EA (Rec: 05/21/18 12:56 EA [id number]) Current Condition History of Current Condition Onset Date 6 years ago Current Complaints Low back pain History of Current Condition Present c/o low back pain started 6 years ago which comes and goes with the use of superficial heating and prescribed pain medication. 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 Patient reports no X-rays and other diagnostic imaging perform in the past. Prior Treatments and Tests Formal skilled PT few years ago and did not completely resolved. Prescribed pain medication and muscle relaxant. Future Testing and Treatments Planned Surgical option if pain do not improve. Treatment Goals Patient/Caregiver Goals Patient wants to eliminate pain so she could perform work without discomfort or limitation. 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 PT-OP-J Posture/Palpation/Skin Start: 05/21/18 12:25 Freq: Status: Active Protocol: Document 05/21/18 12:28 EA (Rec: 05/21/18 12:56 EA [id number]) Posture Evaluation Position Standing L-Spine Posture Increased Lordosis Pelvis Posture Anteriorly Tilted Palpation Assessment Location One Palpation Location Bilateral QL, Paralumbars, Upper gluteal and Periformis Palpation Findings Soft Tissue Tightness Tenderness PT-OP-K Range of Motion Start: 05/21/18 12:25 Freq: Status: Active Protocol: Document 05/21/18 12:28 EA (Rec: 05/21/18 12:56 EA [id number]) Lumbar Spine Range of Motion Lumbar Spine Active Flexion 45 Extension 30 Rotation Left 30 Rotation Right 30 Lateral Flexion Left 25 Lateral Flexion Right 10 ROM Limitations Soft Tissue Tightness Pain PT-OP-L Special Tests Start: 05/21/18 12:25 Freq: Status: Active Protocol: Document 05/21/18 12:28 EA (Rec: 05/21/18 12:56 EA [id number]) Special Tests Lumbar Spine Special Tests Vertical Spine Loading Test Results - Straight Leg Raise Test Results + Comments Both Stork Test Test Results - Hip Special Tests Piriformis Test Results - Other Special Tests Special Tests + Sacral compresson test PT-OP-M Strength Start: 05/21/18 12:25 Freq: Status: Active Protocol: Document 05/21/18 12:28 EA (Rec: 05/21/18 12:56 EA [id number]) Hip Strength Hip Manual Muscle Testing Right Flexion (L2) 3+ Fair+ Extension (S1) 4+ Good+ Abduction 4- Good- External Rotation 4 Good Internal Rotation 3+ Fair+ Left Flexion (L2) 3+ Fair+ Extension (S1) 4+ Good+ Abduction 4- Good- External Rotation 4 Good Internal Rotation 3+ Fair+ Knee Strength Knee Manual Muscle Testing Right Comments WFL Left Comments WFL Ankle/Foot Strength Ankle and Foot Manual Muscle Testing Right Comments WFL Left Comments WFL PT-OP-Q Treatments Start: 05/21/18 12:25 Freq: Status: Active Protocol: Document 06/10/18 11:02 EA (Rec: 06/10/18 11:10 EA [id number]) Therapeutic Exercises Supine Exercises 5 Supine Exercise Name Partial sit-up with marching Reps/Minutes x 10 SH x 3 reps 4 Supine Exercise Name Piriformis stretch Side bilateral Reps/Minutes x 15sh x 5 repes each 3 Supine Exercise Name PPT Reps/Minutes x5sh x 10 reps 2 Supine Exercise Name Lower trunk rotation Side bilateral Reps/Minutes x 15SH x 5 reps each side 1 Supine Exercise Name SKTC Side bilateral Reps/Minutes x 5 reps x 15SH Manual Therapy Treatment Soft Tissue Mobilization 1 Body Location Paralumbars, QL, lat and upper gluteals. Mobilization Type Myofascial Release Rolling Sustained Pressure Intensity/Depth Moderate Body Position Prone PT-OP-R Modalities Start: 05/21/18 12:25 Freq: Status: Active Protocol: Document 06/10/18 11:02 EA (Rec: 06/10/18 11:10 EA [id number]) Electric Stimulation Electric Stimulation Interferential Current (IFC) Body Location Paralumabrs and upper gluetals Duration (Minutes) 15 Intensity 18 Contraction Type Normal Combined With Heat/Cold Hot Pack Hot Pack/Cold Pack Treatment Hot Pack Location Paralumbars and upper gluteals Treatment Duration (minutes) 10 PT-OP-T Assessment and Plan Start: 05/21/18 12:25 Freq: Status: Active Protocol: Document 06/10/18 11:02 EA (Rec: 06/10/18 11:10 EA [id number]) Physical Therapy Assessment Assessment Summary Assessment Noted decreased tender points at this time. Patient is progressing well. Physical Therapy Plan Next Visit Focus/Plan Next Note Type Treatment Note Next Visit Plan Continue with current plan. Add standing core engagement exercises next visit as tolerated.
--- NOTE | 2018-06-12 09:40 | PT.OTN ---
Current Diagnoses Sciatica, unspecified side (06/12/18) Muscle spasm of back (06/12/18) Physical Therapy Treatment Note PT-OP-A Visit Information Start: 05/21/18 12:25 Freq: Status: Active Protocol: Document 06/12/18 08:25 EA (Rec: 06/12/18 08:58 EA [id number]) Out-Patient Physical Therapy Visit Information Visit Information Visit Type Treatment Note Visit Start Time 08:15 Visit Stop Time 09:00 Visit Number 4 PT-OP-B Current Condition Start: 05/21/18 12:25 Freq: Status: Active Protocol: Document 05/21/18 12:28 EA (Rec: 05/21/18 12:56 EA [id number]) Current Condition History of Current Condition Onset Date 6 years ago Current Complaints Low back pain History of Current Condition Present c/o low back pain started 6 years ago which comes and goes with the use of superficial heating and prescribed pain medication. 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 Patient reports no X-rays and other diagnostic imaging perform in the past. Prior Treatments and Tests Formal skilled PT few years ago and did not completely resolved. Prescribed pain medication and muscle relaxant. Future Testing and Treatments Planned Surgical option if pain do not improve. Treatment Goals Patient/Caregiver Goals Patient wants to eliminate pain so she could perform work without discomfort or limitation. 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 Patient Reported Progress Improving PT-OP-J Posture/Palpation/Skin Start: 05/21/18 12:25 Freq: Status: Active Protocol: Document 05/21/18 12:28 EA (Rec: 05/21/18 12:56 EA [id number]) Posture Evaluation Position Standing L-Spine Posture Increased Lordosis Pelvis Posture Anteriorly Tilted Palpation Assessment Location One Palpation Location Bilateral QL, Paralumbars, Upper gluteal and Periformis Palpation Findings Soft Tissue Tightness Tenderness PT-OP-K Range of Motion Start: 05/21/18 12:25 Freq: Status: Active Protocol: Document 05/21/18 12:28 EA (Rec: 05/21/18 12:56 EA [id number]) Lumbar Spine Range of Motion Lumbar Spine Active Flexion 45 Extension 30 Rotation Left 30 Rotation Right 30 Lateral Flexion Left 25 Lateral Flexion Right 10 ROM Limitations Soft Tissue Tightness Pain PT-OP-L Special Tests Start: 05/21/18 12:25 Freq: Status: Active Protocol: Document 05/21/18 12:28 EA (Rec: 05/21/18 12:56 EA [id number]) Special Tests Lumbar Spine Special Tests Vertical Spine Loading Test Results - Straight Leg Raise Test Results + Comments Both Stork Test Test Results - Hip Special Tests Piriformis Test Results - Other Special Tests Special Tests + Sacral compresson test PT-OP-M Strength Start: 05/21/18 12:25 Freq: Status: Active Protocol: Document 05/21/18 12:28 EA (Rec: 05/21/18 12:56 EA [id number]) Hip Strength Hip Manual Muscle Testing Right Flexion (L2) 3+ Fair+ Extension (S1) 4+ Good+ Abduction 4- Good- External Rotation 4 Good Internal Rotation 3+ Fair+ Left Flexion (L2) 3+ Fair+ Extension (S1) 4+ Good+ Abduction 4- Good- External Rotation 4 Good Internal Rotation 3+ Fair+ Knee Strength Knee Manual Muscle Testing Right Comments WFL Left Comments WFL Ankle/Foot Strength Ankle and Foot Manual Muscle Testing Right Comments WFL Left Comments WFL PT-OP-Q Treatments Start: 05/21/18 12:25 Freq: Status: Active Protocol: Document 06/12/18 08:25 EA (Rec: 06/12/18 08:58 EA [id number]) Cardio Equipment Recumbent Stepper (Sci-Fit) Duration (Minutes) 7 Resistance 2 Therapeutic Exercises Supine Exercises 6 Supine Exercise Name Partial sit up with SLR Reps/Minutes x 10 reps x 2 sets each leg 5 Supine Exercise Name Partial sit-up with marching Reps/Minutes x 10 SH x 3 reps 4 Supine Exercise Name Piriformis stretch Side bilateral Reps/Minutes x 15sh x 5 repes each 3 Supine Exercise Name PPT Reps/Minutes x5sh x 10 reps 2 Supine Exercise Name Lower trunk rotation Side bilateral Reps/Minutes x 15SH x 5 reps each side 1 Supine Exercise Name SKTC Side bilateral Reps/Minutes x 5 reps x 15SH Manual Therapy Treatment Soft Tissue Mobilization 1 Body Location Paralumbars, QL, lat and upper gluteals. Mobilization Type Myofascial Release Rolling Sustained Pressure Intensity/Depth Moderate Body Position Prone PT-OP-R Modalities Start: 05/21/18 12:25 Freq: Status: Active Protocol: Document 06/12/18 08:25 EA (Rec: 06/12/18 08:58 EA [id number]) Electric Stimulation Electric Stimulation Interferential Current (IFC) Body Location Paralumabrs and upper gluetals Duration (Minutes) 15 Intensity 18 Contraction Type Normal Combined With Heat/Cold Hot Pack PT-OP-T Assessment and Plan Start: 05/21/18 12:25 Freq: Status: Active Protocol: Document 06/12/18 08:25 EA (Rec: 06/12/18 08:58 EA [id number]) Physical Therapy Assessment Assessment Summary Assessment Pt unable to engage TA in standing and therefore supine PPT is ideal at this time. Noted decreased low back symptoms at this time. Patient is progressing in terms of symptoms. Physical Therapy Plan Next Visit Focus/Plan Next Visit Plan Cont. to strengthen core in supine or prone.
--- NOTE | 2018-06-19 09:32 | PT.OTN ---
Current Diagnoses Sciatica, unspecified side (06/12/18) Muscle spasm of back (06/12/18) Physical Therapy Treatment Note PT-OP-A Visit Information Start: 05/21/18 12:25 Freq: Status: Active Protocol: Document 06/19/18 09:31 EA (Rec: 06/19/18 09:32 EA [id number]) Out-Patient Physical Therapy Visit Information Visit Information Visit Type Patient No Show Visit Note [employer] G[employer] Manager left a voice message about no show up policy. PT-OP-B Current Condition Start: 05/21/18 12:25 Freq: Status: Active Protocol: Document 05/21/18 12:28 EA (Rec: 05/21/18 12:56 EA [id number]) Current Condition History of Current Condition Onset Date 6 years ago Current Complaints Low back pain History of Current Condition Present c/o low back pain started 6 years ago which comes and goes with the use of superficial heating and prescribed pain medication. 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 Patient reports no X-rays and other diagnostic imaging perform in the past. Prior Treatments and Tests Formal skilled PT few years ago and did not completely resolved. Prescribed pain medication and muscle relaxant. Future Testing and Treatments Planned Surgical option if pain do not improve. Treatment Goals Patient/Caregiver Goals Patient wants to eliminate pain so she could perform work without discomfort or limitation. 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 Patient Reported Progress Improving PT-OP-J Posture/Palpation/Skin Start: 05/21/18 12:25 Freq: Status: Active Protocol: Document 05/21/18 12:28 EA (Rec: 05/21/18 12:56 EA [id number]) Posture Evaluation Position Standing L-Spine Posture Increased Lordosis Pelvis Posture Anteriorly Tilted Palpation Assessment Location One Palpation Location Bilateral QL, Paralumbars, Upper gluteal and Periformis Palpation Findings Soft Tissue Tightness Tenderness PT-OP-K Range of Motion Start: 05/21/18 12:25 Freq: Status: Active Protocol: Document 05/21/18 12:28 EA (Rec: 05/21/18 12:56 EA [id number]) Lumbar Spine Range of Motion Lumbar Spine Active Flexion 45 Extension 30 Rotation Left 30 Rotation Right 30 Lateral Flexion Left 25 Lateral Flexion Right 10 ROM Limitations Soft Tissue Tightness Pain PT-OP-L Special Tests Start: 05/21/18 12:25 Freq: Status: Active Protocol: Document 05/21/18 12:28 EA (Rec: 05/21/18 12:56 EA [id number]) Special Tests Lumbar Spine Special Tests Vertical Spine Loading Test Results - Straight Leg Raise Test Results + Comments Both Stork Test Test Results - Hip Special Tests Piriformis Test Results - Other Special Tests Special Tests + Sacral compresson test PT-OP-M Strength Start: 05/21/18 12:25 Freq: Status: Active Protocol: Document 05/21/18 12:28 EA (Rec: 05/21/18 12:56 EA [id number]) Hip Strength Hip Manual Muscle Testing Right Flexion (L2) 3+ Fair+ Extension (S1) 4+ Good+ Abduction 4- Good- External Rotation 4 Good Internal Rotation 3+ Fair+ Left Flexion (L2) 3+ Fair+ Extension (S1) 4+ Good+ Abduction 4- Good- External Rotation 4 Good Internal Rotation 3+ Fair+ Knee Strength Knee Manual Muscle Testing Right Comments WFL Left Comments WFL Ankle/Foot Strength Ankle and Foot Manual Muscle Testing Right Comments WFL Left Comments WFL PT-OP-Q Treatments Start: 05/21/18 12:25 Freq: Status: Active Protocol: Document 06/12/18 08:25 EA (Rec: 06/12/18 08:58 EA [id number]) Cardio Equipment Recumbent Stepper (Sci-Fit) Duration (Minutes) 7 Resistance 2 Therapeutic Exercises Supine Exercises 6 Supine Exercise Name Partial sit up with SLR Reps/Minutes x 10 reps x 2 sets each leg 5 Supine Exercise Name Partial sit-up with marching Reps/Minutes x 10 SH x 3 reps 4 Supine Exercise Name Piriformis stretch Side bilateral Reps/Minutes x 15sh x 5 repes each 3 Supine Exercise Name PPT Reps/Minutes x5sh x 10 reps 2 Supine Exercise Name Lower trunk rotation Side bilateral Reps/Minutes x 15SH x 5 reps each side 1 Supine Exercise Name SKTC Side bilateral Reps/Minutes x 5 reps x 15SH Manual Therapy Treatment Soft Tissue Mobilization 1 Body Location Paralumbars, QL, lat and upper gluteals. Mobilization Type Myofascial Release Rolling Sustained Pressure Intensity/Depth Moderate Body Position Prone PT-OP-R Modalities Start: 05/21/18 12:25 Freq: Status: Active Protocol: Document 06/12/18 08:25 EA (Rec: 06/12/18 08:58 EA [id number]) Electric Stimulation Electric Stimulation Interferential Current (IFC) Body Location Paralumabrs and upper gluetals Duration (Minutes) 15 Intensity 18 Contraction Type Normal Combined With Heat/Cold Hot Pack PT-OP-T Assessment and Plan Start: 05/21/18 12:25 Freq: Status: Active Protocol: Document 06/12/18 08:25 EA (Rec: 06/12/18 08:58 EA [id number]) Physical Therapy Assessment Assessment Summary Assessment Pt unable to engage TA in standing and therefore supine PPT is ideal at this time. Noted decreased low back symptoms at this time. Patient is progressing in terms of symptoms. Physical Therapy Plan Next Visit Focus/Plan Next Visit Plan Cont. to strengthen core in supine or prone.
--- NOTE | 2018-06-24 10:51 | PT.OTN ---
Current Diagnoses Sciatica, unspecified side (06/24/18) Muscle spasm of back (06/24/18) Physical Therapy Treatment Note PT-OP-A Visit Information Start: 05/21/18 12:25 Freq: Status: Active Protocol: Document 06/24/18 09:20 EA (Rec: 06/24/18 09:42 EA [id number]) Out-Patient Physical Therapy Visit Information Visit Information Visit Type Treatment Note Visit Start Time 09:00 Visit Stop Time 09:50 Visit Number 5 PT-OP-B Current Condition Start: 05/21/18 12:25 Freq: Status: Active Protocol: Document 05/21/18 12:28 EA (Rec: 05/21/18 12:56 EA [id number]) Current Condition History of Current Condition Onset Date 6 years ago Current Complaints Low back pain History of Current Condition Present c/o low back pain started 6 years ago which comes and goes with the use of superficial heating and prescribed pain medication. 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 Patient reports no X-rays and other diagnostic imaging perform in the past. Prior Treatments and Tests Formal skilled PT few years ago and did not completely resolved. Prescribed pain medication and muscle relaxant. Future Testing and Treatments Planned Surgical option if pain do not improve. Treatment Goals Patient/Caregiver Goals Patient wants to eliminate pain so she could perform work without discomfort or limitation. 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 Patient Reported Progress Improving PT-OP-J Posture/Palpation/Skin Start: 05/21/18 12:25 Freq: Status: Active Protocol: Document 05/21/18 12:28 EA (Rec: 05/21/18 12:56 EA [id number]) Posture Evaluation Position Standing L-Spine Posture Increased Lordosis Pelvis Posture Anteriorly Tilted Palpation Assessment Location One Palpation Location Bilateral QL, Paralumbars, Upper gluteal and Periformis Palpation Findings Soft Tissue Tightness Tenderness PT-OP-K Range of Motion Start: 05/21/18 12:25 Freq: Status: Active Protocol: Document 05/21/18 12:28 EA (Rec: 05/21/18 12:56 EA [id number]) Lumbar Spine Range of Motion Lumbar Spine Active Flexion 45 Extension 30 Rotation Left 30 Rotation Right 30 Lateral Flexion Left 25 Lateral Flexion Right 10 ROM Limitations Soft Tissue Tightness Pain PT-OP-L Special Tests Start: 05/21/18 12:25 Freq: Status: Active Protocol: Document 05/21/18 12:28 EA (Rec: 05/21/18 12:56 EA [id number]) Special Tests Lumbar Spine Special Tests Vertical Spine Loading Test Results - Straight Leg Raise Test Results + Comments Both Stork Test Test Results - Hip Special Tests Piriformis Test Results - Other Special Tests Special Tests + Sacral compresson test PT-OP-M Strength Start: 05/21/18 12:25 Freq: Status: Active Protocol: Document 05/21/18 12:28 EA (Rec: 05/21/18 12:56 EA [id number]) Hip Strength Hip Manual Muscle Testing Right Flexion (L2) 3+ Fair+ Extension (S1) 4+ Good+ Abduction 4- Good- External Rotation 4 Good Internal Rotation 3+ Fair+ Left Flexion (L2) 3+ Fair+ Extension (S1) 4+ Good+ Abduction 4- Good- External Rotation 4 Good Internal Rotation 3+ Fair+ Knee Strength Knee Manual Muscle Testing Right Comments WFL Left Comments WFL Ankle/Foot Strength Ankle and Foot Manual Muscle Testing Right Comments WFL Left Comments WFL PT-OP-Q Treatments Start: 05/21/18 12:25 Freq: Status: Active Protocol: Document 06/24/18 09:20 EA (Rec: 06/24/18 09:42 EA [id number]) Therapeutic Exercises Supine Exercises 6 Supine Exercise Name Partial sit up with SLR Reps/Minutes x 10 reps x 2 sets each leg 5 Supine Exercise Name Partial sit-up with marching Reps/Minutes x 10 SH x 3 reps 4 Supine Exercise Name Piriformis stretch Side bilateral Reps/Minutes x 15sh x 5 repes each 3 Supine Exercise Name PPT Reps/Minutes x5sh x 10 reps 2 Supine Exercise Name Lower trunk rotation Side bilateral Reps/Minutes x 15SH x 5 reps each side 1 Supine Exercise Name SKTC Side bilateral Reps/Minutes x 5 reps x 15SH Sitting Exercises 1 Sitting Exercise Name Bench: side flexion and with rotaion, flexion and with rotation Side bilateral Reps/Minutes x 10 reps x 2 sets Standing Exercises 2 Standing Exercise Name TB upper trunk rotation Side bilateral Resistance Lv 1 Reps/Minutes x 10 reps 1 Standing Exercise Name Wall squat with PPT Reps/Minutes x 10 reps x 5SH Manual Therapy Treatment Soft Tissue Mobilization 1 Body Location Paralumbars, QL, lat and upper gluteals. Mobilization Type Myofascial Release Rolling Sustained Pressure Intensity/Depth Moderate Body Position Prone PT-OP-R Modalities Start: 05/21/18 12:25 Freq: Status: Active Protocol: Document 06/24/18 09:20 EA (Rec: 06/24/18 09:42 EA [id number]) Electric Stimulation Electric Stimulation Interferential Current (IFC) Body Location Paralumabrs and upper gluetals Duration (Minutes) 15 Intensity 18 Contraction Type Normal Combined With Heat/Cold Hot Pack PT-OP-T Assessment and Plan Start: 05/21/18 12:25 Freq: Status: Active Protocol: Document 06/24/18 09:20 EA (Rec: 06/24/18 09:42 EA [id number]) Physical Therapy Assessment Assessment Summary Assessment Improved lumbar mobility with less discomfort. Less tenderness noted to low back at this time. Patient is progressing well. Physical Therapy Plan Next Visit Focus/Plan Next Note Type Treatment Note Next Visit Plan Cont with current plan.
--- NOTE | 2018-09-01 07:27 | PT.OPDS ---
Current Diagnoses Sciatica, unspecified side (06/24/18) Muscle spasm of back (06/24/18) Provider Visit Care Team Role Provider Type Karuna Caceres DO Attending Provider Physician Family Provider Primary Care Provider Specialty: Family Practice Address: [address] [place] [address], [facility] Email: [email or web address] Visit Number Visit Number 5 Discharge Summary PT-OP-B Current Condition Start: 05/21/18 12:25 Freq: Status: Active Protocol: Document 05/21/18 12:28 EA (Rec: 05/21/18 12:56 EA [id number]) Current Condition History of Current Condition Onset Date 6 years ago Current Complaints Low back pain History of Current Condition Present c/o low back pain started 6 years ago which comes and goes with the use of superficial heating and prescribed pain medication. 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 Patient reports no X-rays and other diagnostic imaging perform in the past. Prior Treatments and Tests Formal skilled PT few years ago and did not completely resolved. Prescribed pain medication and muscle relaxant. Future Testing and Treatments Planned Surgical option if pain do not improve. Treatment Goals Patient/Caregiver Goals Patient wants to eliminate pain so she could perform work without discomfort or limitation. 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 PT-OP-J Posture/Palpation/Skin Start: 05/21/18 12:25 Freq: Status: Active Protocol: Document 05/21/18 12:28 EA (Rec: 05/21/18 12:56 EA [id number]) Posture Evaluation Position Standing L-Spine Posture Increased Lordosis Pelvis Posture Anteriorly Tilted Palpation Assessment Location One Palpation Location Bilateral QL, Paralumbars, Upper gluteal and Periformis Palpation Findings Soft Tissue Tightness Tenderness PT-OP-K Range of Motion Start: 05/21/18 12:25 Freq: Status: Active Protocol: Document 05/21/18 12:28 EA (Rec: 05/21/18 12:56 EA [id number]) Lumbar Spine Range of Motion Lumbar Spine Active Flexion 45 Extension 30 Rotation Left 30 Rotation Right 30 Lateral Flexion Left 25 Lateral Flexion Right 10 ROM Limitations Soft Tissue Tightness Pain PT-OP-L Special Tests Start: 05/21/18 12:25 Freq: Status: Active Protocol: Document 05/21/18 12:28 EA (Rec: 05/21/18 12:56 EA [id number]) Special Tests Lumbar Spine Special Tests Vertical Spine Loading Test Results - Straight Leg Raise Test Results + Comments Both Stork Test Test Results - Hip Special Tests Piriformis Test Results - Other Special Tests Special Tests + Sacral compresson test PT-OP-M Strength Start: 05/21/18 12:25 Freq: Status: Active Protocol: Document 05/21/18 12:28 EA (Rec: 05/21/18 12:56 EA [id number]) Hip Strength Hip Manual Muscle Testing Right Flexion (L2) 3+ Fair+ Extension (S1) 4+ Good+ Abduction 4- Good- External Rotation 4 Good Internal Rotation 3+ Fair+ Left Flexion (L2) 3+ Fair+ Extension (S1) 4+ Good+ Abduction 4- Good- External Rotation 4 Good Internal Rotation 3+ Fair+ Knee Strength Knee Manual Muscle Testing Right Comments WFL Left Comments WFL Ankle/Foot Strength Ankle and Foot Manual Muscle Testing Right Comments WFL Left Comments WFL PT-OP-T Assessment and Plan Start: 05/21/18 12:25 Freq: Status: Active Protocol: Document 09/03/18 07:24 EA (Rec: 09/03/18 07:27 EA [id number]) Physical Therapy Assessment Assessment Summary Assessment Patient is discharge to skilled PT due to no longer attending PT. Physical Therapy Plan Discharge Physical Therapy Discharge Reasons No Longer Attending PT
== END 2018-11-03 09:27 ==
LOC: PHYS 09:00
PROVIDERS: Family Provider Family Medicine; PCP Family Medicine; Visit Provider Family Medicine
DX: M54.30 Sciatica, unspecified side (principal); M62.830 Muscle spasm of back
CPT/HCPCS: 97010; 97014; 97110; 97140; 97161; 97535; G0283

== ENCOUNTER → 2018-06-30 11:15 | Outpatient (CLI) | payer OTHER, MEDICAID, SELFPAY ==
--- NOTE | 2018-06-30 | DI.MRI.S_ITS ---
PROCEDURE: MR HIP RT WO CON INDICATIONS: hip pain TECHNIQUE: Noncontrast coronal T1 spin echo and STIR through the bony pelvis. Coronal and axial T2 fast spin echo with fat saturation, sagittal T1 spin echo, and oblique axial T2 fast spin echo with fat saturation through the hip. COMPARISON: None. FINDINGS: Image quality: Excellent. Bones and joints: Bone marrow of the pelvic ring and proximal femurs show no marrow edema. No fracture or dislocation. Nonspecific intraosseous cyst formation in the inferior aspect of right femoral head is seen. No avascular necrosis of the femoral heads. The visualized lower lumbar spine appears normally aligned. Tendons and ligaments: The gluteus medius and minimus tendons appear intact, without associated muscle atrophy. The nearby proximal iliotibial band also appears intact. The iliopsoas tendon appears intact, without adjacent bursal fluid collections or evidence for impingement syndrome. The origin of the hamstring tendon is intact at the ischial tuberosity, as well as the associated sacrotuberous ligament. The straight and reflected heads of the rectus femoris muscle origin appear intact, as well as the conjoint tendon. The ligamentum teres appears intact where visualized. Labrum and cartilage: The acetabular labrum appears intact in the absence of intra-articular contrast. Cartilage surface of the femoral head appears of normal thickness. The alpha angle of the femur is within normal limits at less than 55 degrees. Soft tissues: Visualized muscles demonstrate normal bulk and internal signal. Quadratus femoris muscle demonstrates no internal edema to suggest ischiofemoral impingement. The proximal sciatic neurovascular bundle appears normal adjacent to the hamstring tendons. No free pelvic fluid. Bladder wall thickness is normal. Genitourinary structures and bowel loops appear normal where visualized. IMPRESSION: 1. Nonspecific intraosseous cyst formation in the inferior aspect of right femoral head near tendon junction. No marrow edema. No fracture or dislocation. No evidence of avascular necrosis. 2. No gross muscle or tendon signal abnormality in right hip. No MR evidence of focal right hip labral tear. Dictated by: Rohit Gardner M.D. on 06/30/2018 at 14:57 Approved by: Rohit Gardner M.D. on 06/30/2018 at 15:01
--- NOTE | 2018-06-30 11:17 | DI.MRI.S_ITS ---
PROCEDURE: MR LUMBAR SPINE WO CON INDICATIONS: sciatica TECHNIQUE: Noncontrast sagittal T1 spin echo and T2 fast echo, sagittal STIR, axial T1 and T2 fast spin echo through the lumbar spine. In cases with scoliosis, additional coronal T2 fast spin echo may be performed. COMPARISON: None. FINDINGS: Image quality: Excellent. Alignment and Curvature: There is normal bony alignment. Bone Marrow: Marrow is of normal overall signal. No acute vertebral body compression fractures. Spinal Cord: Conus medullaris terminates at the L1-2 disc level. Visualized cord demonstrates normal signal and size. Paraspinous Soft Tissues: No paravertebral masses. L1-L2: Normal appearance. L2-L3: Loss of the signal. No central stenosis. No neural foraminal narrowing. No neural impingement L3-L4: Loss of the signal. No central stenosis. No neural foraminal narrowing. No neural impingement. L4-L5: Normal appearance. L5-S1: Normal appearance. IMPRESSION: 1. Mild L2-L3 and L3-L4 degenerative disc disease. 2. No central stenosis. 3. No neural foraminal narrowing 4. No neural impingement. Dictated by: Jasmyne Daniel MD, PhD on 06/30/2018 at 13:50 Approved by: Jasmyne Daniel MD, PhD on 06/30/2018 at 13:53
== END ==
PROVIDERS: PCP Student in an Organized Health Care Education/Training Program; Visit Provider Student in an Organized Health Care Education/Training Program
DX: M51.16 Intervertebral disc disorders with radiculopathy, lumbar region (principal); M25.551 Pain in right hip; M85.651 Other cyst of bone, right thigh
CPT/HCPCS: 72148; 73721

== ENCOUNTER 2018-10-15 07:30 | Outpatient (RCR) | payer OTHER, MEDICAID, SELFPAY ==
--- NOTE | 2018-09-03 17:25 | PT.OIE ---
Current Diagnoses Sciatica, unspecified side (09/03/18) Dorsalgia, unspecified (09/03/18) Past Medical History (Last Reviewed 05/16/18 @ 04:55 by Aleks Corral DO) Bipolar 1 disorder (Acute) ADHD (attention deficit hyperactivity disorder) (Chronic Unknown) Anxiety (Chronic Unknown) Depression (Chronic Unknown) Generalized headaches (Chronic Unknown) Hypertension (Chronic 2012) Migraines (Chronic Unknown) PTSD (post-traumatic stress disorder) (Chronic Unknown) Hx of suicide attempt (Resolved Unknown) Past Surgical History (Last Reviewed 05/16/18 @ 04:55 by Aleks Corral DO) Hx of section (Resolved Unknown) Hx of myringotomy (Resolved Unknown) Hx of tonsillectomy (Resolved 2003) Provider Visit Care Team Role Provider Type Nigel Arora MD Attending Provider Physician Primary Care Provider Specialty: Internal Medicine Address: [address] [place] [address], [facility] Email: Physical Therapy Initial Evaluation PT-OP-A Visit Information Start: 09/03/18 16:59 Freq: Status: Active Protocol: Document 09/03/18 17:01 EA (Rec: 09/03/18 17:36 EA [id number]) Out-Patient Physical Therapy Visit Information Visit Information Visit Type Initial Evaluation Visit Start Time 16:00 Visit Stop Time 16:45 Total Visit Minutes 45 Visit Number 1 Number of ACCOUNT DIRECTOR Visits 0 Evaluation Information Evaluation Date 09/03/18 PT-OP-B Current Condition Start: 09/03/18 16:59 Freq: Status: Active Protocol: Document 09/03/18 17:01 EA (Rec: 09/03/18 17:36 EA [id number]) Current Condition History of Current Condition Onset Date 7 years ago Current Complaints Low back pain History of Current Condition Present c/o low back pain started 6 years ago which comes and goes with the use of superficial heating and prescribed pain medication. Pt reports no history of injury in the past; Skilled PT performed 2 months ago with good results, however unable to come back due to personal reasons and she has to wait with MRI results. Prior Treatments and Tests Formal skilled PT 2 months ago and did not completely resolved. Prescribed pain medication and muscle relaxant. MRI 06/30/18: no significant findings. Future Testing and Treatments Planned None identified Treatment Goals Patient/Caregiver Goals Patient wants to get rid of the pain. Patient wants to be able to move without discomfort Prior Functional Status Baseline Function- ADL's Independent Baseline Function- Mobility Independent Baseline Function- Gait Limited < a 2 mile due to excess body weight Baseline Function- Work/School Independent without limitation prior to re-aggravation five months ago Baseline Function- Recreation/Hobbies None identified Current Functional Impairments (Reported) Functional Limitations- ADL's Independent with limitation with activities combined with bending and lifting Functional Limitations- Mobility/Gait Decreased tolerance to more than 1 mile Functional Limitations- Work/School Independent with limitation in bending and lifting Personal Factors Other Personal Factors That May Effect Depression, pschological d/o Therapy/Recovery PT-OP-C Subjective Start: 09/03/18 17:36 Freq: Status: Active Protocol: Document 09/03/18 17:37 EA (Rec: 09/03/18 17:39 EA [id number]) OP-PT Subjective Patient Comments Patient Comments I'm trying to eat healthy than what ate before; states my doctor says my low back pain would improve if I lose weight. Patient Reported Progress Same OP-PT Pain Assessment Location Bilateral Lower Back Pain Location Details Bilateral low back, upper gluteals, QL Intensity 5 Description Tender Tightness Frequency Intermittent Pain Duration it varies Variations/Patterns localized with occasional right anterior hip shooting Pain Aggravating Factors Position Sitting Bending Lifting Patient Stated Pain Goal 0 Home Pain Medication Use Pain Medications Used Yes Pain Behaviors Pain Behaviors Guarding Holding Area PT-OP-F Manual Assessment Start: 09/03/18 16:59 Freq: Status: Active Protocol: Document 09/03/18 17:01 EA (Rec: 09/03/18 17:36 EA [id number]) Manual Assessments Soft Tissue Assessment Soft Tissue Mobility Assessment Tight posterior lumbar and hip muscles, tight TFL PT-OP-G Mobility & Gait Start: 09/03/18 16:59 Freq: Status: Active Protocol: Document 09/03/18 17:36 EA (Rec: 09/03/18 17:37 EA [id number]) OP Gait Assessment Comments Gait Comments Waddling gait PT-OP-J Posture/Palpation/Skin Start: 09/03/18 16:59 Freq: Status: Active Protocol: Document 09/03/18 17:01 EA (Rec: 09/03/18 17:36 EA [id number]) Posture Evaluation Comments Posture Comments Obese- Increased lumbars lordosis Palpation Assessment Location One Palpation Location Bilateral QL, Paralumbars, Upper gluteal and Periformis Palpation Findings Soft Tissue Tightness Tenderness PT-OP-K Range of Motion Start: 09/03/18 16:59 Freq: Status: Active Protocol: Document 09/03/18 17:01 EA (Rec: 09/03/18 17:36 EA [id number]) Lumbar Spine Range of Motion Lumbar Spine Active Percentage Testing Position Standing Flexion 75 Extension 100 Rotation Left 75 Rotation Right 75 Lateral Flexion Left 75 Lateral Flexion Right 75 ROM Limitations Soft Tissue Tightness Pain Active Testing Position Standing Flexion 75 PT-OP-L Special Tests Start: 09/03/18 16:59 Freq: Status: Active Protocol: Document 09/03/18 17:01 EA (Rec: 09/03/18 17:36 EA [id number]) Special Tests Lumbar Spine Special Tests Other- 2 Test Results femoral tension test Comments Sensitive Other- 1 Test Results Gaenslen's Comments Neg Slump Test Results + Vertical Spine Loading Test Results - Straight Leg Raise Test Results right sensitive at 45deg Stork Test Test Results negative PT-OP-M Strength Start: 09/03/18 16:59 Freq: Status: Active Protocol: Document 09/03/18 17:01 EA (Rec: 09/03/18 17:36 EA [id number]) Trunk Strength Trunk Manual Muscle Testing Flexion 3+ Fair+ Extension 4- Good- Rotation Left 4- Good- Rotation Right 4- Good- Lateral Flexion Left 4- Good- Lateral Flexion Right 4- Good- Hip Strength Hip Manual Muscle Testing Right Flexion (L2) 5 Normal Extension (S1) 4+ Good+ Abduction 4+ Good+ Adduction 5 Normal External Rotation 4 Good Internal Rotation 4 Good Left Flexion (L2) 5 Normal Extension (S1) 4+ Good+ Abduction 4+ Good+ Adduction 5 Normal External Rotation 4 Good Internal Rotation 4 Good Comments Both LE MMT are WFL Knee Strength Knee Manual Muscle Testing Right Reason Not Measured WFL Left Reason Not Measured WFL Ankle/Foot Strength Ankle and Foot Manual Muscle Testing Right Reason Not Measured WFL Left Reason Not Measured WFL PT-OP-Q Treatments Start: 09/03/18 16:59 Freq: Status: Active Protocol: Document 09/03/18 17:01 EA (Rec: 09/03/18 17:36 EA [id number]) Manual Therapy Treatment Soft Tissue Mobilization 1 Mobilization Type Myofascial Release Rolling Strumming Sustained Pressure Intensity/Depth Moderate Body Position Prone Comments pillow under stomach Self-Care/Home Management Treatment Education Patient Education Body Mechanics Home Exercise Program Pain Management Posture PT-OP-T Assessment and Plan Start: 09/03/18 16:59 Freq: Status: Active Protocol: Document 09/03/18 17:01 CRISTINA (Rec: 09/03/18 17:36 EA [id number]) Physical Therapy Assessment Rehab Potential Rehabilitation Potential Fair Evaluation Complexity Number of Personal Factors/Comorbidities 1-2 Number of Body Systems Impaired 1-2 Clinical Presentation at Evaluation Evolving Impairments Impairments Activity Tolerance Pain Posture ROM Soft Tissue Mobility Strength Goals Five Impairment No HEP in place [facility] Goal (LTG) Patient will learn proper and safe exercises program not only for strengthening but as well safe exercises program to manage body weight LTG Duration 4 wks Four Impairment Sitting/standing posture tolerance less than 1 hour Piping Supervisor Goal (LTG) Patient will able to sit and stand > 1 hour with no increase in symptoms. LTG Duration 4 wks Three Impairment Weakness to both hip rotators, and trunk stabilizer [facility] Goal (LTG) Patient will increase both hip rotators, trunk stabilizer MMTg by 1/2 grade to prevent biomechanical dysfunction and to improve functional mobility . LTG Duration 4 wks. Two Impairment Oswestry impairment scale of 20% Piping Supervisor Goal (LTG) Patient will have Oswetry impairment scale of less than 5% to improve quality of life. LTG Duration 4 wks One Impairment Reported pain of 6/10 at worst with standing/sitting and walking Piping Supervisor Goal (LTG) Patient will report pain less than 1/10 at with standing, sitting and walking LTG Duration 4 wks Progress Towards Goals Progress Towards Goals Progressing Toward Goals Assessment Summary Assessment Pleasant 27 y/o F patient with current referring diagnosis of acute low back pain with sciatica. Today patient displayed with symptoms consistent with referring diagnosis acute LBP. However, L2 nerve distribution of patient's subjective complaint did not correlate with sciatic involvement. Motor, sensory, DTR's tests reveals insignificant at this time and therefore motor nerve studies is necessary. Abnormal low back posture with muscular imbalance and excess body weight seems to be the caused of existing condition. Due to above dysfunction, patient is impaired to function that is normal at her age. In addition, patient tolerance to static activity is decreased. In my professional opinion, patient is a fair candidate for skilled PT. Patient will benefit with education, postural awareness, decreasing abnormal muscular imbalance, and core strengthening. Physical Therapy Plan Frequency and Duration Frequency of Treatment 2x/Week Duration of Treatment 8 wks Plan of Care Start Date 09/03/18 Plan of Care End Date 10/29/18 Therapeutic Interventions Therapeutic Interventions Home Exercise Program Joint Mobilizations Manual Therapy Patient/Caregiver Education Self-Care/Home Management Soft Tissue Mobilization Taping Therapeutic Exercises Modalities Cold Pack/Ice Massage Electric Stimulation Hot Packs Next Visit Focus/Plan Next Note Type Treatment Note Next Visit Plan HEP images, abdominal strengthening to decrease hyperlumbar curvature.
--- NOTE | 2018-09-03 17:26 | PT.OPPOC ---
Current Diagnoses Sciatica, unspecified side (09/03/18) Dorsalgia, unspecified (09/03/18) Provider Visit Care Team Role Provider Type Nigel Arora MD Attending Provider Physician Primary Care Provider Specialty: Internal Medicine Address: [address] [place] [address], [id number] Email: Plan Of Care PT-OP-T Assessment and Plan Start: 09/03/18 16:59 Freq: Status: Active Protocol: Document 09/03/18 17:01 EA (Rec: 09/03/18 17:36 EA [id number]) Physical Therapy Assessment Rehab Potential Rehabilitation Potential Fair Evaluation Complexity Number of Personal Factors/Comorbidities 1-2 Number of Body Systems Impaired 1-2 Clinical Presentation at Evaluation Evolving Impairments Impairments Activity Tolerance Pain Posture ROM Soft Tissue Mobility Strength Goals Five Impairment No HEP in place [facility] Goal (LTG) Patient will learn proper and safe exercises program not only for strengthening but as well safe exercises program to manage body weight LTG Duration 4 wks Four Impairment Sitting/standing posture tolerance less than 1 hour [facility] Goal (LTG) Patient will able to sit and stand > 1 hour with no increase in symptoms. LTG Duration 4 wks Three Impairment Weakness to both hip rotators, and trunk stabilizer Assessor Goal (LTG) Patient will increase both hip rotators, trunk stabilizer MMTg by 1/2 grade to prevent biomechanical dysfunction and to improve functional mobility . LTG Duration 4 wks. Two Impairment Oswestry impairment scale of 20% Assessor Goal (LTG) Patient will have Oswetry impairment scale of less than 5% to improve quality of life. LTG Duration 4 wks One Impairment Reported pain of 6/10 at worst with standing/sitting and walking Assessor Goal (LTG) Patient will report pain less than 1/10 at with standing, sitting and walking LTG Duration 4 wks Progress Towards Goals Progress Towards Goals Progressing Toward Goals Assessment Summary Assessment Pleasant 27 y/o F patient with current referring diagnosis of acute low back pain with sciatica. Today patient displayed with symptoms consistent with referring diagnosis acute LBP. However, L2 nerve distribution of patient's subjective complaint did not correlate with sciatic involvement. Motor, sensory, DTR's tests reveals insignificant at this time and therefore motor nerve studies is necessary. Abnormal low back posture with muscular imbalance and excess body weight seems to be the caused of existing condition. Due to above dysfunction, patient is impaired to function that is normal at her age. In addition, patient tolerance to static activity is decreased. In my professional opinion, patient is a fair candidate for skilled PT. Patient will benefit with education, postural awareness, decreasing abnormal muscular imbalance, and core strengthening. Physical Therapy Plan Frequency and Duration Frequency of Treatment 2x/Week Duration of Treatment 8 wks Plan of Care Start Date 09/03/18 Plan of Care End Date 10/29/18 Therapeutic Interventions Therapeutic Interventions Home Exercise Program Joint Mobilizations Manual Therapy Patient/Caregiver Education Self-Care/Home Management Soft Tissue Mobilization Taping Therapeutic Exercises Modalities Cold Pack/Ice Massage Electric Stimulation Hot Packs Next Visit Focus/Plan Next Note Type Treatment Note Next Visit Plan HEP images, abdominal strengthening to decrease hyperlumbar curvature. Plan of Care Dates Plan of Care Start Date 09/03/18 Plan of Care End Date 10/29/18 Please Sign and Return: I have reviewed this Plan of Care and certify that the skilled therapy services above are required to meet the patient?s needs. Physician Signature Date Printed Name and Credentials Clinical Instructor Signature Printed Name and Credentials
--- NOTE | 2018-09-05 11:28 | PT.OTN ---
Current Diagnoses Sciatica, unspecified side (09/05/18) Dorsalgia, unspecified (09/05/18) Physical Therapy Treatment Note PT-OP-A Visit Information Start: 09/03/18 16:59 Freq: Status: Active Protocol: Document 09/05/18 10:32 LR (Rec: 09/05/18 11:28 [facility] [id number]) Out-Patient Physical Therapy Visit Information Visit Information Visit Type Treatment Note Visit Start Time 10:30 Visit Stop Time 11:20 Total Visit Minutes 50 Visit Number 0 Number of LINE FIXER Visits 0 PT-OP-B Current Condition Start: 09/03/18 16:59 Freq: Status: Active Protocol: Document 09/03/18 17:01 EA (Rec: 09/03/18 17:36 EA [id number]) Current Condition History of Current Condition Onset Date 7 years ago Current Complaints Low back pain History of Current Condition Present c/o low back pain started 6 years ago which comes and goes with the use of superficial heating and prescribed pain medication. Pt reports no history of injury in the past; Skilled PT performed 2 months ago with good results, however unable to come back due to personal reasons and she has to wait with MRI results. Prior Treatments and Tests Formal skilled PT 2 months ago and did not completely resolved. Prescribed pain medication and muscle relaxant. MRI 06/30/18: no significant findings. Future Testing and Treatments Planned None identified Treatment Goals Patient/Caregiver Goals Patient wants to get rid of the pain. Patient wants to be able to move without discomfort Prior Functional Status Baseline Function- ADL's Independent Baseline Function- Mobility Independent Baseline Function- Gait Limited < a 2 mile due to excess body weight Baseline Function- Work/School Independent without limitation prior to re-aggravation five months ago Baseline Function- Recreation/Hobbies None identified Current Functional Impairments (Reported) Functional Limitations- ADL's Independent with limitation with activities combined with bending and lifting Functional Limitations- Mobility/Gait Decreased tolerance to more than 1 mile Functional Limitations- Work/School Independent with limitation in bending and lifting Personal Factors Other Personal Factors That May Effect Depression, pschological d/o Therapy/Recovery PT-OP-C Subjective Start: 09/03/18 17:36 Freq: Status: Active Protocol: Document 09/05/18 10:32 [facility] (Rec: 09/05/18 11:28 [facility] [id number]) OP-PT Subjective Patient Comments Patient Comments Pt reports she has not done any of her old PT exercises. PT-OP-F Manual Assessment Start: 09/03/18 16:59 Freq: Status: Active Protocol: Document 09/03/18 17:01 EA (Rec: 09/03/18 17:36 EA [id number]) Manual Assessments Soft Tissue Assessment Soft Tissue Mobility Assessment Tight posterior lumbar and hip muscles, tight TFL PT-OP-G Mobility & Gait Start: 09/03/18 16:59 Freq: Status: Active Protocol: Document 09/03/18 17:36 EA (Rec: 09/03/18 17:37 EA [id number]) OP Gait Assessment Comments Gait Comments Waddling gait PT-OP-J Posture/Palpation/Skin Start: 09/03/18 16:59 Freq: Status: Active Protocol: Document 09/03/18 17:01 EA (Rec: 09/03/18 17:36 EA [id number]) Posture Evaluation Comments Posture Comments Obese- Increased lumbars lordosis Palpation Assessment Location One Palpation Location Bilateral QL, Paralumbars, Upper gluteal and Periformis Palpation Findings Soft Tissue Tightness Tenderness PT-OP-K Range of Motion Start: 09/03/18 16:59 Freq: Status: Active Protocol: Document 09/03/18 17:01 EA (Rec: 09/03/18 17:36 EA [id number]) Lumbar Spine Range of Motion Lumbar Spine Active Percentage Testing Position Standing Flexion 75 Extension 100 Rotation Left 75 Rotation Right 75 Lateral Flexion Left 75 Lateral Flexion Right 75 ROM Limitations Soft Tissue Tightness Pain Active Testing Position Standing Flexion 75 PT-OP-L Special Tests Start: 09/03/18 16:59 Freq: Status: Active Protocol: Document 09/03/18 17:01 EA (Rec: 09/03/18 17:36 EA [id number]) Special Tests Lumbar Spine Special Tests Other- 2 Test Results femoral tension test Comments Sensitive Other- 1 Test Results Elianlen's Comments Neg Slump Test Results + Vertical Spine Loading Test Results - Straight Leg Raise Test Results right sensitive at 45deg Stork Test Test Results negative PT-OP-M Strength Start: 09/03/18 16:59 Freq: Status: Active Protocol: Document 09/03/18 17:01 EA (Rec: 09/03/18 17:36 EA [id number]) Trunk Strength Trunk Manual Muscle Testing Flexion 3+ Fair+ Extension 4- Good- Rotation Left 4- Good- Rotation Right 4- Good- Lateral Flexion Left 4- Good- Lateral Flexion Right 4- Good- Hip Strength Hip Manual Muscle Testing Right Flexion (L2) 5 Normal Extension (S1) 4+ Good+ Abduction 4+ Good+ Adduction 5 Normal External Rotation 4 Good Internal Rotation 4 Good Left Flexion (L2) 5 Normal Extension (S1) 4+ Good+ Abduction 4+ Good+ Adduction 5 Normal External Rotation 4 Good Internal Rotation 4 Good Comments Both LE MMT are WFL Knee Strength Knee Manual Muscle Testing Right Reason Not Measured WFL Left Reason Not Measured WFL Ankle/Foot Strength Ankle and Foot Manual Muscle Testing Right Reason Not Measured WFL Left Reason Not Measured WFL PT-OP-Q Treatments Start: 09/03/18 16:59 Freq: Status: Active Protocol: Document 09/05/18 10:32 [facility] (Rec: 09/05/18 11:28 [facility] [id number]) Therapeutic Exercises Supine Exercises 3 Supine Exercise Name Bridge Side bilateral Reps/Minutes 2x10 Comments w/focus on core & glute & traction through LE to help facilitate for 6rep 2 Supine Exercise Name Lower trunk rotation Side bilateral Reps/Minutes 15 Comments focus on core control 1 Supine Exercise Name pelvic tilt with marching Side bilateral Reps/Minutes 2x15 Other Exercises child's pose Other Exercise Name mary pose fwd & to sides Side bilateral Reps/Minutes 30 sec holds cat/camel Other Exercise Name cat camel Reps/Minutes 15 Comments w/focus on lumbar flex Therapeutic Activity Therapeutic Activity supported sitting Name scrum coach long sitting Comments edu on pillow under knees as needed, pillows behind back to fully support back when long sitting on couch. Edu to always place pillow or other support behind back when on couch. standing posture Name standing posture Comments avoid knee hyperext, relax tailbone, deep breath in then out to dec ant shear of ribcage & ext of lumbar spine- improved with manual placement & cueing Manual Therapy Treatment Soft Tissue Mobilization 1 Body Location QL/ES Mobilization Type Rolling Sustained Pressure Intensity/Depth Moderate Body Position Prone Comments pillow under stomach PT-OP-R Modalities Start: 09/03/18 16:59 Freq: Status: Active Protocol: Document 09/05/18 10:32 [facility] (Rec: 09/05/18 11:28 [facility] [id number]) Electric Stimulation Electric Stimulation Interferential Current (IFC) Body Location lumbar spine Duration (Minutes) 15 Intensity 16 Patient Position Prone Combined With Heat/Cold Hot Pack PT-OP-T Assessment and Plan Start: 09/03/18 16:59 Freq: Status: Active Protocol: Document 09/05/18 10:32 [facility] (Rec: 09/05/18 11:28 [facility] [id number]) Physical Therapy Assessment Goals Five Impairment No HEP in place Halfway Goal (LTG) Patient will learn proper and safe exercises program not only for strengthening but as well safe exercises program to manage body weight LTG Duration 4 wks Four Impairment Sitting/standing posture tolerance less than 1 hour Fruit Dumper Goal (LTG) Patient will able to sit and stand > 1 hour with no increase in symptoms. LTG Duration 4 wks Three Impairment Weakness to both hip rotators, and trunk stabilizer Fruit Dumper Goal (LTG) Patient will increase both hip rotators, trunk stabilizer MMTg by 1/2 grade to prevent biomechanical dysfunction and to improve functional mobility . LTG Duration 4 wks. Two Impairment Oswestry impairment scale of 20% Halfway Goal (LTG) Patient will have Oswetry impairment scale of less than 5% to improve quality of life. LTG Duration 4 wks One Impairment Reported pain of 6/10 at worst with standing/sitting and walking Halfway Goal (LTG) Patient will report pain less than 1/10 at with standing, sitting and walking LTG Duration 4 wks Assessment Summary Assessment Pt able to tolerate all new exercises with cueing without pain. She had difficulty with movement pattern w/cat/camel exercise. She required significant cueing for postural correction. Physical Therapy Plan Frequency and Duration Frequency of Treatment 2x/Week Duration of Treatment 8 wks Plan of Care Start Date 09/03/18 Plan of Care End Date 10/29/18 Next Visit Focus/Plan Next Note Type Treatment Note Next Visit Plan cont to advance abdominal strengthening, wall posture exercise, posture edu
--- NOTE | 2018-09-16 10:35 | PT.OTN ---
Current Diagnoses Sciatica, unspecified side (09/05/18) Dorsalgia, unspecified (09/05/18) Physical Therapy Treatment Note PT-OP-A Visit Information Start: 09/03/18 16:59 Freq: Status: Active Protocol: Document 09/16/18 10:33 EA (Rec: 09/16/18 10:34 EA [id number]) Out-Patient Physical Therapy Visit Information Visit Information Visit Type Cancellation Visit Note No show: pattern chart writer called and left message to inform about no shwo today and as well the no shwo policy. PT-OP-B Current Condition Start: 09/03/18 16:59 Freq: Status: Active Protocol: Document 09/03/18 17:01 EA (Rec: 09/03/18 17:36 EA [id number]) Current Condition History of Current Condition Onset Date 7 years ago Current Complaints Low back pain History of Current Condition Present c/o low back pain started 6 years ago which comes and goes with the use of superficial heating and prescribed pain medication. Pt reports no history of injury in the past; Skilled PT performed 2 months ago with good results, however unable to come back due to personal reasons and she has to wait with MRI results. Prior Treatments and Tests Formal skilled PT 2 months ago and did not completely resolved. Prescribed pain medication and muscle relaxant. MRI 06/30/18: no significant findings. Future Testing and Treatments Planned None identified Treatment Goals Patient/Caregiver Goals Patient wants to get rid of the pain. Patient wants to be able to move without discomfort Prior Functional Status Baseline Function- ADL's Independent Baseline Function- Mobility Independent Baseline Function- Gait Limited < a 2 mile due to excess body weight Baseline Function- Work/School Independent without limitation prior to re-aggravation five months ago Baseline Function- Recreation/Hobbies None identified Current Functional Impairments (Reported) Functional Limitations- ADL's Independent with limitation with activities combined with bending and lifting Functional Limitations- Mobility/Gait Decreased tolerance to more than 1 mile Functional Limitations- Work/School Independent with limitation in bending and lifting Personal Factors Other Personal Factors That May Effect Depression, pschological d/o Therapy/Recovery PT-OP-C Subjective Start: 09/03/18 17:36 Freq: Status: Active Protocol: Document 09/05/18 10:32 [facility] (Rec: 09/05/18 11:28 [facility] [id number]) OP-PT Subjective Patient Comments Patient Comments Pt reports she has not done any of her old PT exercises. PT-OP-F Manual Assessment Start: 09/03/18 16:59 Freq: Status: Active Protocol: Document 09/03/18 17:01 EA (Rec: 09/03/18 17:36 EA [id number]) Manual Assessments Soft Tissue Assessment Soft Tissue Mobility Assessment Tight posterior lumbar and hip muscles, tight TFL PT-OP-G Mobility & Gait Start: 09/03/18 16:59 Freq: Status: Active Protocol: Document 09/03/18 17:36 EA (Rec: 09/03/18 17:37 EA [id number]) OP Gait Assessment Comments Gait Comments Waddling gait PT-OP-J Posture/Palpation/Skin Start: 09/03/18 16:59 Freq: Status: Active Protocol: Document 09/03/18 17:01 EA (Rec: 09/03/18 17:36 EA [id number]) Posture Evaluation Comments Posture Comments Obese- Increased lumbars lordosis Palpation Assessment Location One Palpation Location Bilateral QL, Paralumbars, Upper gluteal and Periformis Palpation Findings Soft Tissue Tightness Tenderness PT-OP-K Range of Motion Start: 09/03/18 16:59 Freq: Status: Active Protocol: Document 09/03/18 17:01 EA (Rec: 09/03/18 17:36 EA [id number]) Lumbar Spine Range of Motion Lumbar Spine Active Percentage Testing Position Standing Flexion 75 Extension 100 Rotation Left 75 Rotation Right 75 Lateral Flexion Left 75 Lateral Flexion Right 75 ROM Limitations Soft Tissue Tightness Pain Active Testing Position Standing Flexion 75 PT-OP-L Special Tests Start: 09/03/18 16:59 Freq: Status: Active Protocol: Document 09/03/18 17:01 EA (Rec: 09/03/18 17:36 EA [id number]) Special Tests Lumbar Spine Special Tests Other- 2 Test Results femoral tension test Comments Sensitive Other- 1 Test Results Lefty's Comments Neg Slump Test Results + Vertical Spine Loading Test Results - Straight Leg Raise Test Results right sensitive at 45deg Stork Test Test Results negative PT-OP-M Strength Start: 09/03/18 16:59 Freq: Status: Active Protocol: Document 09/03/18 17:01 EA (Rec: 09/03/18 17:36 EA [id number]) Trunk Strength Trunk Manual Muscle Testing Flexion 3+ Fair+ Extension 4- Good- Rotation Left 4- Good- Rotation Right 4- Good- Lateral Flexion Left 4- Good- Lateral Flexion Right 4- Good- Hip Strength Hip Manual Muscle Testing Right Flexion (L2) 5 Normal Extension (S1) 4+ Good+ Abduction 4+ Good+ Adduction 5 Normal External Rotation 4 Good Internal Rotation 4 Good Left Flexion (L2) 5 Normal Extension (S1) 4+ Good+ Abduction 4+ Good+ Adduction 5 Normal External Rotation 4 Good Internal Rotation 4 Good Comments Both LE MMT are WFL Knee Strength Knee Manual Muscle Testing Right Reason Not Measured WFL Left Reason Not Measured WFL Ankle/Foot Strength Ankle and Foot Manual Muscle Testing Right Reason Not Measured WFL Left Reason Not Measured WFL PT-OP-Q Treatments Start: 09/03/18 16:59 Freq: Status: Active Protocol: Document 09/05/18 10:32 [facility] (Rec: 09/05/18 11:28 [facility] [id number]) Therapeutic Exercises Supine Exercises 3 Supine Exercise Name Bridge Side bilateral Reps/Minutes 2x10 Comments w/focus on core & glute & traction through LE to help facilitate for 6rep 2 Supine Exercise Name Lower trunk rotation Side bilateral Reps/Minutes 15 Comments focus on core control 1 Supine Exercise Name pelvic tilt with marching Side bilateral Reps/Minutes 2x15 Other Exercises child's pose Other Exercise Name mary pose fwd & to sides Side bilateral Reps/Minutes 30 sec holds cat/camel Other Exercise Name cat camel Reps/Minutes 15 Comments w/focus on lumbar flex Therapeutic Activity Therapeutic Activity supported sitting Name executive business coach long sitting Comments edu on pillow under knees as needed, pillows behind back to fully support back when long sitting on couch. Edu to always place pillow or other support behind back when on couch. standing posture Name standing posture Comments avoid knee hyperext, relax tailbone, deep breath in then out to dec ant shear of ribcage & ext of lumbar spine- improved with manual placement & cueing Manual Therapy Treatment Soft Tissue Mobilization 1 Body Location QL/ES Mobilization Type Rolling Sustained Pressure Intensity/Depth Moderate Body Position Prone Comments pillow under stomach PT-OP-R Modalities Start: 09/03/18 16:59 Freq: Status: Active Protocol: Document 09/05/18 10:32 [facility] (Rec: 09/05/18 11:28 [facility] [id number]) Electric Stimulation Electric Stimulation Interferential Current (IFC) Body Location lumbar spine Duration (Minutes) 15 Intensity 16 Patient Position Prone Combined With Heat/Cold Hot Pack PT-OP-T Assessment and Plan Start: 09/03/18 16:59 Freq: Status: Active Protocol: Document 09/05/18 10:32 [facility] (Rec: 09/05/18 11:28 [facility] [id number]) Physical Therapy Assessment Goals Five Impairment No HEP in place Style Advisor Goal (LTG) Patient will learn proper and safe exercises program not only for strengthening but as well safe exercises program to manage body weight LTG Duration 4 wks Four Impairment Sitting/standing posture tolerance less than 1 hour Skilled Nursing Goal (LTG) Patient will able to sit and stand > 1 hour with no increase in symptoms. LTG Duration 4 wks Three Impairment Weakness to both hip rotators, and trunk stabilizer Style Advisor Goal (LTG) Patient will increase both hip rotators, trunk stabilizer MMTg by 1/2 grade to prevent biomechanical dysfunction and to improve functional mobility . LTG Duration 4 wks. Two Impairment Oswestry impairment scale of 20% Style Advisor Goal (LTG) Patient will have Oswetry impairment scale of less than 5% to improve quality of life. LTG Duration 4 wks One Impairment Reported pain of 6/10 at worst with standing/sitting and walking Style Advisor Goal (LTG) Patient will report pain less than 1/10 at with standing, sitting and walking LTG Duration 4 wks Assessment Summary Assessment Pt able to tolerate all new exercises with cueing without pain. She had difficulty with movement pattern w/cat/camel exercise. She required significant cueing for postural correction. Physical Therapy Plan Frequency and Duration Frequency of Treatment 2x/Week Duration of Treatment 8 wks Plan of Care Start Date 09/03/18 Plan of Care End Date 10/29/18 Next Visit Focus/Plan Next Note Type Treatment Note Next Visit Plan cont to advance abdominal strengthening, wall posture exercise, posture edu
--- NOTE | 2018-09-18 10:22 | PT.OTN ---
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 Pt reports no history of injury in the past; Skilled PT performed 2 months ago with good results, however unable to come back due to personal reasons and she has to wait with MRI results. Prior Treatments and Tests Formal skilled PT 2 months ago and did not completely resolved. Prescribed pain medication and muscle relaxant. MRI 06/30/18: no significant findings. Future Testing and Treatments Planned None identified Treatment Goals Patient/Caregiver Goals Patient wants to get rid of the pain. Patient wants to be able to move without discomfort Prior Functional Status Baseline Function- ADL's Independent Baseline Function- Mobility Independent Baseline Function- Gait Limited < a 2 mile due to excess body weight Baseline Function- Work/School Independent without limitation prior to re-aggravation five months ago Baseline Function- Recreation/Hobbies None identified Current Functional Impairments (Reported) Functional Limitations- ADL's Independent with limitation with activities combined with bending and lifting Functional Limitations- Mobility/Gait Decreased tolerance to more than 1 mile Functional Limitations- Work/School Independent with limitation in bending and lifting Personal Factors Other Personal Factors That May Effect Depression, pschological d/o Therapy/Recovery PT-OP-C Subjective Start: 09/03/18 17:36 Freq: Status: Active Protocol: Document 09/18/18 09:45 DCW (Rec: 09/18/18 10:22 DCW [id number]) OP-PT Subjective Patient Comments Patient Comments I have anxiety, and my back hurts, and we're in the middle of moving, so there are lots of changes right now, which just makes everything harder. Pt reports her back normally hurts the most when she first gets up in the morning, but seems to be a little better when laying on her right side. Has not done any of her HEP, because she has been at the crisis center after a mental health issue. PT-OP-F Manual Assessment Start: 09/03/18 16:59 Freq: Status: Active Protocol: Document 09/03/18 17:01 EA (Rec: 09/03/18 17:36 EA [id number]) Manual Assessments Soft Tissue Assessment Soft Tissue Mobility Assessment Tight posterior lumbar and hip muscles, tight TFL PT-OP-G Mobility & Gait Start: 09/03/18 16:59 Freq: Status: Active Protocol: Document 09/03/18 17:36 EA (Rec: 09/03/18 17:37 EA [id number]) OP Gait Assessment Comments Gait Comments Waddling gait PT-OP-J Posture/Palpation/Skin Start: 09/03/18 16:59 Freq: Status: Active Protocol: Document 09/03/18 17:01 EA (Rec: 09/03/18 17:36 EA [id number]) Posture Evaluation Comments Posture Comments Obese- Increased lumbars lordosis Palpation Assessment Location One Palpation Location Bilateral QL, Paralumbars, Upper gluteal and Periformis Palpation Findings Soft Tissue Tightness Tenderness PT-OP-K Range of Motion Start: 09/03/18 16:59 Freq: Status: Active Protocol: Document 09/03/18 17:01 EA (Rec: 09/03/18 17:36 EA [id number]) Lumbar Spine Range of Motion Lumbar Spine Active Percentage Testing Position Standing Flexion 75 Extension 100 Rotation Left 75 Rotation Right 75 Lateral Flexion Left 75 Lateral Flexion Right 75 ROM Limitations Soft Tissue Tightness Pain Active Testing Position Standing Flexion 75 PT-OP-L Special Tests Start: 09/03/18 16:59 Freq: Status: Active Protocol: Document 09/03/18 17:01 EA (Rec: 09/03/18 17:36 EA [id number]) Special Tests Lumbar Spine Special Tests Other- 2 Test Results femoral tension test Comments Sensitive Other- 1 Test Results Lefty's Comments Neg Slump Test Results + Vertical Spine Loading Test Results - Straight Leg Raise Test Results right sensitive at 45deg Stork Test Test Results negative PT-OP-M Strength Start: 09/03/18 16:59 Freq: Status: Active Protocol: Document 09/03/18 17:01 EA (Rec: 09/03/18 17:36 EA [id number]) Trunk Strength Trunk Manual Muscle Testing Flexion 3+ Fair+ Extension 4- Good- Rotation Left 4- Good- Rotation Right 4- Good- Lateral Flexion Left 4- Good- Lateral Flexion Right 4- Good- Hip Strength Hip Manual Muscle Testing Right Flexion (L2) 5 Normal Extension (S1) 4+ Good+ Abduction 4+ Good+ Adduction 5 Normal External Rotation 4 Good Internal Rotation 4 Good Left Flexion (L2) 5 Normal Extension (S1) 4+ Good+ Abduction 4+ Good+ Adduction 5 Normal External Rotation 4 Good Internal Rotation 4 Good Comments Both LE MMT are WFL Knee Strength Knee Manual Muscle Testing Right Reason Not Measured WFL Left Reason Not Measured WFL Ankle/Foot Strength Ankle and Foot Manual Muscle Testing Right Reason Not Measured WFL Left Reason Not Measured WFL PT-OP-Q Treatments Start: 09/03/18 16:59 Freq: Status: Active Protocol: Document 09/18/18 09:45 DCW (Rec: 09/18/18 10:22 DCW [id number]) Cardio Equipment Recumbent Elliptical ([employer]) Duration (Minutes) 5 Resistance 3 Seat Position 6 Therapeutic Exercises Supine Exercises 5 Supine Exercise Name Pelvic tilt /c air bike Reps/Minutes x 10 SH x 3 reps 4 Supine Exercise Name Bridge with marching Side bilateral Reps/Minutes 3x5 Comments VCs for core contraction 3 Supine Exercise Name Bridge Side bilateral Reps/Minutes 2x10 Comments w/focus on core & glute & traction through LE to help facilitate for 6rep 2 Supine Exercise Name Lower trunk rotation /c feet on T-ball Side bilateral Reps/Minutes 15 Comments focus on core control 1 Supine Exercise Name pelvic tilt with marching Side bilateral Reps/Minutes 2x15 Other Exercises child's pose Other Exercise Name mary pose fwd & to sides Side bilateral Reps/Minutes 30 sec holds cat/camel Other Exercise Name cat camel Reps/Minutes 15 Comments w/focus on lumbar flex Manual Therapy Treatment Soft Tissue Mobilization 1 Body Location QL/ES Mobilization Type Rolling Sustained Pressure Intensity/Depth Moderate Body Position Prone Comments pillow under stomach PT-OP-R Modalities Start: 09/03/18 16:59 Freq: Status: Active Protocol: Document 09/18/18 09:45 DCW (Rec: 09/18/18 10:22 DCW [id number]) Electric Stimulation Electric Stimulation Interferential Current (IFC) Body Location lumbar spine Duration (Minutes) 15 Intensity 16 Patient Position Prone Combined With Heat/Cold Hot Pack PT-OP-T Assessment and Plan Start: 09/03/18 16:59 Freq: Status: Active Protocol: Document 09/18/18 09:45 DCW (Rec: 09/18/18 10:22 DCW [id number]) Physical Therapy Assessment Impairments Impairments Activity Tolerance Pain Posture ROM Soft Tissue Mobility Strength Goals Five Impairment No HEP in place Bulkhead Carpenter Goal (LTG) Patient will learn proper and safe exercises program not only for strengthening but as well safe exercises program to manage body weight LTG Duration 4 wks Four Impairment Sitting/standing posture tolerance less than 1 hour Custodial Goal (LTG) Patient will able to sit and stand > 1 hour with no increase in symptoms. LTG Duration 4 wks Three Impairment Weakness to both hip rotators, and trunk stabilizer Custodial Goal (LTG) Patient will increase both hip rotators, trunk stabilizer MMTg by 1/2 grade to prevent biomechanical dysfunction and to improve functional mobility . LTG Duration 4 wks. Two Impairment Oswestry impairment scale of 20% Custodial Goal (LTG) Patient will have Oswetry impairment scale of less than 5% to improve quality of life. LTG Duration 4 wks One Impairment Reported pain of 6/10 at worst with standing/sitting and walking Custodial Goal (LTG) Patient will report pain less than 1/10 at with standing, sitting and walking LTG Duration 4 wks Assessment Summary Assessment Pt had no instances of increased pain during her therapy session today, required fewer verbal cues for posture today. Physical Therapy Plan Frequency and Duration Frequency of Treatment 2x/Week Duration of Treatment 8 wks Plan of Care Start Date 09/03/18 Plan of Care End Date 10/29/18 Next Visit Focus/Plan Next Note Type Treatment Note Next Visit Plan cont to advance abdominal strengthening, wall posture exercise, posture edu
--- NOTE | 2018-09-24 09:53 | PT.OTN ---
Current Diagnoses Sciatica, unspecified side (09/24/18) Dorsalgia, unspecified (09/24/18) Physical Therapy Treatment Note PT-OP-A Visit Information Start: 09/03/18 16:59 Freq: Status: Active Protocol: Document 09/24/18 08:03 EA (Rec: 09/24/18 08:08 EA [id number]) Out-Patient Physical Therapy Visit Information Visit Information Visit Type Treatment Note Visit Start Time 07:30 Visit Stop Time 08:18 Total Visit Minutes 48 Visit Number 4 PT-OP-B Current Condition Start: 09/03/18 16:59 Freq: Status: Active Protocol: Document 09/03/18 17:01 EA (Rec: 09/03/18 17:36 EA [id number]) Current Condition History of Current Condition Onset Date 7 years ago Current Complaints Low back pain History of Current Condition Present c/o low back pain started 6 years ago which comes and goes with the use of superficial heating and prescribed pain medication. Pt reports no history of injury in the past; Skilled PT performed 2 months ago with good results, however unable to come back due to personal reasons and she has to wait with MRI results. Prior Treatments and Tests Formal skilled PT 2 months ago and did not completely resolved. Prescribed pain medication and muscle relaxant. MRI 06/30/18: no significant findings. Future Testing and Treatments Planned None identified Treatment Goals Patient/Caregiver Goals Patient wants to get rid of the pain. Patient wants to be able to move without discomfort Prior Functional Status Baseline Function- ADL's Independent Baseline Function- Mobility Independent Baseline Function- Gait Limited < a 2 mile due to excess body weight Baseline Function- Work/School Independent without limitation prior to re-aggravation five months ago Baseline Function- Recreation/Hobbies None identified Current Functional Impairments (Reported) Functional Limitations- ADL's Independent with limitation with activities combined with bending and lifting Functional Limitations- Mobility/Gait Decreased tolerance to more than 1 mile Functional Limitations- Work/School Independent with limitation in bending and lifting Personal Factors Other Personal Factors That May Effect Depression, pschological d/o Therapy/Recovery PT-OP-C Subjective Start: 09/03/18 17:36 Freq: Status: Active Protocol: Document 09/24/18 08:03 EA (Rec: 09/24/18 08:08 EA [id number]) OP-PT Subjective Patient Comments Patient Comments Pt reports complaint with HEP; states lower back feels a bit better. PT-OP-F Manual Assessment Start: 09/03/18 16:59 Freq: Status: Active Protocol: Document 09/03/18 17:01 EA (Rec: 09/03/18 17:36 EA [id number]) Manual Assessments Soft Tissue Assessment Soft Tissue Mobility Assessment Tight posterior lumbar and hip muscles, tight TFL PT-OP-G Mobility & Gait Start: 09/03/18 16:59 Freq: Status: Active Protocol: Document 09/03/18 17:36 EA (Rec: 09/03/18 17:37 EA [id number]) OP Gait Assessment Comments Gait Comments Waddling gait PT-OP-J Posture/Palpation/Skin Start: 09/03/18 16:59 Freq: Status: Active Protocol: Document 09/03/18 17:01 EA (Rec: 09/03/18 17:36 EA [id number]) Posture Evaluation Comments Posture Comments Obese- Increased lumbars lordosis Palpation Assessment Location One Palpation Location Bilateral QL, Paralumbars, Upper gluteal and Periformis Palpation Findings Soft Tissue Tightness Tenderness PT-OP-K Range of Motion Start: 09/03/18 16:59 Freq: Status: Active Protocol: Document 09/03/18 17:01 EA (Rec: 09/03/18 17:36 EA [id number]) Lumbar Spine Range of Motion Lumbar Spine Active Percentage Testing Position Standing Flexion 75 Extension 100 Rotation Left 75 Rotation Right 75 Lateral Flexion Left 75 Lateral Flexion Right 75 ROM Limitations Soft Tissue Tightness Pain Active Testing Position Standing Flexion 75 PT-OP-L Special Tests Start: 09/03/18 16:59 Freq: Status: Active Protocol: Document 09/03/18 17:01 EA (Rec: 09/03/18 17:36 EA [id number]) Special Tests Lumbar Spine Special Tests Other- 2 Test Results femoral tension test Comments Sensitive Other- 1 Test Results Lefty's Comments Neg Slump Test Results + Vertical Spine Loading Test Results - Straight Leg Raise Test Results right sensitive at 45deg Stork Test Test Results negative PT-OP-M Strength Start: 09/03/18 16:59 Freq: Status: Active Protocol: Document 09/03/18 17:01 EA (Rec: 09/03/18 17:36 EA [id number]) Trunk Strength Trunk Manual Muscle Testing Flexion 3+ Fair+ Extension 4- Good- Rotation Left 4- Good- Rotation Right 4- Good- Lateral Flexion Left 4- Good- Lateral Flexion Right 4- Good- Hip Strength Hip Manual Muscle Testing Right Flexion (L2) 5 Normal Extension (S1) 4+ Good+ Abduction 4+ Good+ Adduction 5 Normal External Rotation 4 Good Internal Rotation 4 Good Left Flexion (L2) 5 Normal Extension (S1) 4+ Good+ Abduction 4+ Good+ Adduction 5 Normal External Rotation 4 Good Internal Rotation 4 Good Comments Both LE MMT are WFL Knee Strength Knee Manual Muscle Testing Right Reason Not Measured WFL Left Reason Not Measured WFL Ankle/Foot Strength Ankle and Foot Manual Muscle Testing Right Reason Not Measured WFL Left Reason Not Measured WFL PT-OP-Q Treatments Start: 09/03/18 16:59 Freq: Status: Active Protocol: Document 09/24/18 08:03 EA (Rec: 09/24/18 08:08 EA [id number]) Cardio Equipment Recumbent Stepper ([employer]) Duration (Minutes) 5 Resistance 3 Therapeutic Exercises Supine Exercises 6 Supine Exercise Name Partial sit up with SLR Reps/Minutes x 10 reps x 2 sets each leg 5 Supine Exercise Name Pelvic tilt /c air bike Reps/Minutes x 10 SH x 3 reps 4 Supine Exercise Name Bridge with marching Side bilateral Reps/Minutes 3x5 Comments VCs for core contraction 3 Supine Exercise Name Bridge Side bilateral Reps/Minutes 2x10 Comments w/focus on core & glute & traction through LE to help facilitate for 6rep 2 Supine Exercise Name Lower trunk rotation /c feet on T-ball Side bilateral Reps/Minutes 15 Comments focus on core control 1 Supine Exercise Name pelvic tilt with marching Side bilateral Reps/Minutes 2x15 Sitting Exercises 1 Sitting Exercise Name Bench: side flexion and with rotaion, flexion and with rotation Side bilateral Reps/Minutes x 10 reps x 2 sets Standing Exercises 1 Standing Exercise Name Wall squat with PPT Reps/Minutes x 10 reps x 5SH Other Exercises child's pose Other Exercise Name mary pose fwd & to sides Side bilateral Reps/Minutes 30 sec holds cat/camel Other Exercise Name cat camel Reps/Minutes 15 Comments w/focus on lumbar flex Manual Therapy Treatment Soft Tissue Mobilization 1 Body Location QL/ES Mobilization Type Rolling Sustained Pressure Intensity/Depth Moderate Body Position Prone Comments pillow under stomach PT-OP-R Modalities Start: 09/03/18 16:59 Freq: Status: Active Protocol: Document 09/24/18 08:03 EA (Rec: 09/24/18 08:08 EA [id number]) Electric Stimulation Electric Stimulation Interferential Current (IFC) Body Location lumbar spine Duration (Minutes) 15 Intensity 16 Patient Position Prone Combined With Heat/Cold Hot Pack PT-OP-T Assessment and Plan Start: 09/03/18 16:59 Freq: Status: Active Protocol: Document 09/24/18 08:03 EA (Rec: 09/24/18 08:08 EA [id number]) Physical Therapy Assessment Assessment Summary Assessment Tolerated treatment with no signs of discomfort during therex, however still tight to both QL. Patient is progressing well. Physical Therapy Plan Next Visit Focus/Plan Next Note Type Treatment Note Next Visit Plan cont to advance abdominal strengthening, wall posture exercise, posture edu
--- NOTE | 2018-10-03 09:37 | PT.OTN ---
Current Diagnoses Sciatica, unspecified side (10/03/18) Dorsalgia, unspecified (10/03/18) Physical Therapy Treatment Note PT-OP-A Visit Information Start: 09/03/18 16:59 Freq: Status: Active Protocol: Document 10/03/18 09:00 DCW (Rec: 10/03/18 09:37 DCW [id number]) Out-Patient Physical Therapy Visit Information Visit Information Visit Type Treatment Note Visit Start Time 09:00 Visit Stop Time 09:50 Total Visit Minutes 50 Visit Number 5 Number of SPECIAL EVENTS COORDINATOR Visits 0 Evaluation Information Evaluation Date 09/03/18 PT-OP-B Current Condition Start: 09/03/18 16:59 Freq: Status: Active Protocol: Document 09/03/18 17:01 EA (Rec: 09/03/18 17:36 EA [id number]) Current Condition History of Current Condition Onset Date 7 years ago Current Complaints Low back pain History of Current Condition Present c/o low back pain started 6 years ago which comes and goes with the use of superficial heating and prescribed pain medication. Pt reports no history of injury in the past; Skilled PT performed 2 months ago with good results, however unable to come back due to personal reasons and she has to wait with MRI results. Prior Treatments and Tests Formal skilled PT 2 months ago and did not completely resolved. Prescribed pain medication and muscle relaxant. MRI 06/30/18: no significant findings. Future Testing and Treatments Planned None identified Treatment Goals Patient/Caregiver Goals Patient wants to get rid of the pain. Patient wants to be able to move without discomfort Prior Functional Status Baseline Function- ADL's Independent Baseline Function- Mobility Independent Baseline Function- Gait Limited < a 2 mile due to excess body weight Baseline Function- Work/School Independent without limitation prior to re-aggravation five months ago Baseline Function- Recreation/Hobbies None identified Current Functional Impairments (Reported) Functional Limitations- ADL's Independent with limitation with activities combined with bending and lifting Functional Limitations- Mobility/Gait Decreased tolerance to more than 1 mile Functional Limitations- Work/School Independent with limitation in bending and lifting Personal Factors Other Personal Factors That May Effect Depression, pschological d/o Therapy/Recovery PT-OP-C Subjective Start: 09/03/18 17:36 Freq: Status: Active Protocol: Document 10/03/18 09:00 DCW (Rec: 10/03/18 09:37 DCW [id number]) OP-PT Subjective Patient Comments Patient Comments Pt reports she actually slept well last night, which was the first good night's sleep she has had in more than a week. PT-OP-F Manual Assessment Start: 09/03/18 16:59 Freq: Status: Active Protocol: Document 09/03/18 17:01 EA (Rec: 09/03/18 17:36 EA [id number]) Manual Assessments Soft Tissue Assessment Soft Tissue Mobility Assessment Tight posterior lumbar and hip muscles, tight TFL PT-OP-G Mobility & Gait Start: 09/03/18 16:59 Freq: Status: Active Protocol: Document 09/03/18 17:36 EA (Rec: 09/03/18 17:37 EA [id number]) OP Gait Assessment Comments Gait Comments Waddling gait PT-OP-J Posture/Palpation/Skin Start: 09/03/18 16:59 Freq: Status: Active Protocol: Document 09/03/18 17:01 EA (Rec: 09/03/18 17:36 EA [id number]) Posture Evaluation Comments Posture Comments Obese- Increased lumbars lordosis Palpation Assessment Location One Palpation Location Bilateral QL, Paralumbars, Upper gluteal and Periformis Palpation Findings Soft Tissue Tightness Tenderness PT-OP-K Range of Motion Start: 09/03/18 16:59 Freq: Status: Active Protocol: Document 09/03/18 17:01 EA (Rec: 09/03/18 17:36 EA [id number]) Lumbar Spine Range of Motion Lumbar Spine Active Percentage Testing Position Standing Flexion 75 Extension 100 Rotation Left 75 Rotation Right 75 Lateral Flexion Left 75 Lateral Flexion Right 75 ROM Limitations Soft Tissue Tightness Pain Active Testing Position Standing Flexion 75 PT-OP-L Special Tests Start: 09/03/18 16:59 Freq: Status: Active Protocol: Document 09/03/18 17:01 EA (Rec: 09/03/18 17:36 EA [id number]) Special Tests Lumbar Spine Special Tests Other- 2 Test Results femoral tension test Comments Sensitive Other- 1 Test Results Gaenslen's Comments Neg Slump Test Results + Vertical Spine Loading Test Results - Straight Leg Raise Test Results right sensitive at 45deg Stork Test Test Results negative PT-OP-M Strength Start: 09/03/18 16:59 Freq: Status: Active Protocol: Document 09/03/18 17:01 EA (Rec: 09/03/18 17:36 EA [id number]) Trunk Strength Trunk Manual Muscle Testing Flexion 3+ Fair+ Extension 4- Good- Rotation Left 4- Good- Rotation Right 4- Good- Lateral Flexion Left 4- Good- Lateral Flexion Right 4- Good- Hip Strength Hip Manual Muscle Testing Right Flexion (L2) 5 Normal Extension (S1) 4+ Good+ Abduction 4+ Good+ Adduction 5 Normal External Rotation 4 Good Internal Rotation 4 Good Left Flexion (L2) 5 Normal Extension (S1) 4+ Good+ Abduction 4+ Good+ Adduction 5 Normal External Rotation 4 Good Internal Rotation 4 Good Comments Both LE MMT are WFL Knee Strength Knee Manual Muscle Testing Right Reason Not Measured WFL Left Reason Not Measured WFL Ankle/Foot Strength Ankle and Foot Manual Muscle Testing Right Reason Not Measured WFL Left Reason Not Measured WFL PT-OP-Q Treatments Start: 09/03/18 16:59 Freq: Status: Active Protocol: Document 10/03/18 09:00 DCW (Rec: 10/03/18 09:37 DCW [id number]) Therapeutic Exercises Supine Exercises 4 Supine Exercise Name Bridge with marching Side bilateral Reps/Minutes 3x5 Comments VCs for core contraction 3 Supine Exercise Name Bridge /c feet on T-ball Side bilateral Reps/Minutes 2x10 Comments w/focus on core & glute & traction through LE to help facilitate for 6rep 2 Supine Exercise Name Lower trunk rotation /c feet on T-ball Side bilateral Reps/Minutes 15 Comments focus on core control Other Exercises child's pose Other Exercise Name mary pose fwd & to sides Side bilateral Reps/Minutes 30 sec holds cat/camel Other Exercise Name cat camel Reps/Minutes 15 Comments w/focus on lumbar flex Manual Therapy Treatment Soft Tissue Mobilization 1 Body Location QL/ES Mobilization Type Rolling Sustained Pressure Intensity/Depth Moderate Body Position Prone Comments pillow under stomach PT-OP-R Modalities Start: 09/03/18 16:59 Freq: Status: Active Protocol: Document 10/03/18 09:00 DCW (Rec: 10/03/18 09:37 DCW [id number]) Electric Stimulation Electric Stimulation Interferential Current (IFC) Body Location lumbar spine Duration (Minutes) 15 Intensity 28 Patient Position Prone Combined With Heat/Cold Hot Pack PT-OP-T Assessment and Plan Start: 09/03/18 16:59 Freq: Status: Active Protocol: Document 10/03/18 09:00 DCW (Rec: 10/03/18 09:37 DCW [id number]) Physical Therapy Assessment Impairments Impairments Activity Tolerance Pain Posture ROM Soft Tissue Mobility Strength Goals Five Impairment No HEP in place Long-Term Goal (LTG) Patient will learn proper and safe exercises program not only for strengthening but as well safe exercises program to manage body weight LTG Duration 4 wks Four Impairment Sitting/standing posture tolerance less than 1 hour Long-Term Goal (LTG) Patient will able to sit and stand > 1 hour with no increase in symptoms. LTG Duration 4 wks Three Impairment Weakness to both hip rotators, and trunk stabilizer Iron Caster Goal (LTG) Patient will increase both hip rotators, trunk stabilizer MMTg by 1/2 grade to prevent biomechanical dysfunction and to improve functional mobility . LTG Duration 4 wks. Two Impairment Oswestry impairment scale of 20% Iron Caster Goal (LTG) Patient will have Oswetry impairment scale of less than 5% to improve quality of life. LTG Duration 4 wks One Impairment Reported pain of 6/10 at worst with standing/sitting and walking Long-Term Goal (LTG) Patient will report pain less than 1/10 at with standing, sitting and walking LTG Duration 4 wks Assessment Summary Assessment Pt continues to report compliance with HEP, again has no complaints of pain during treatment. Physical Therapy Plan Frequency and Duration Frequency of Treatment 2x/Week Duration of Treatment 8 wks Plan of Care Start Date 09/03/18 Plan of Care End Date 10/29/18 Next Visit Focus/Plan Next Note Type Treatment Note Next Visit Plan cont to advance abdominal strengthening, wall posture exercise, posture edu
--- NOTE | 2018-10-08 09:15 | PT.OTN ---
Current Diagnoses Sciatica, unspecified side (10/08/18) Dorsalgia, unspecified (10/08/18) Physical Therapy Treatment Note PT-OP-A Visit Information Start: 09/03/18 16:59 Freq: Status: Active Protocol: Document 10/08/18 08:05 EA (Rec: 10/08/18 08:11 EA [id number]) Out-Patient Physical Therapy Visit Information Visit Information Visit Type Treatment Note Visit Start Time 07:30 Visit Stop Time 08:15 Total Visit Minutes 45 Visit Number 6 PT-OP-B Current Condition Start: 09/03/18 16:59 Freq: Status: Active Protocol: Document 09/03/18 17:01 EA (Rec: 09/03/18 17:36 EA [id number]) Current Condition History of Current Condition Onset Date 7 years ago Current Complaints Low back pain History of Current Condition Present c/o low back pain started 6 years ago which comes and goes with the use of superficial heating and prescribed pain medication. Pt reports no history of injury in the past; Skilled PT performed 2 months ago with good results, however unable to come back due to personal reasons and she has to wait with MRI results. Prior Treatments and Tests Formal skilled PT 2 months ago and did not completely resolved. Prescribed pain medication and muscle relaxant. MRI 06/30/18: no significant findings. Future Testing and Treatments Planned None identified Treatment Goals Patient/Caregiver Goals Patient wants to get rid of the pain. Patient wants to be able to move without discomfort Prior Functional Status Baseline Function- ADL's Independent Baseline Function- Mobility Independent Baseline Function- Gait Limited < a 2 mile due to excess body weight Baseline Function- Work/School Independent without limitation prior to re-aggravation five months ago Baseline Function- Recreation/Hobbies None identified Current Functional Impairments (Reported) Functional Limitations- ADL's Independent with limitation with activities combined with bending and lifting Functional Limitations- Mobility/Gait Decreased tolerance to more than 1 mile Functional Limitations- Work/School Independent with limitation in bending and lifting Personal Factors Other Personal Factors That May Effect Depression, pschological d/o Therapy/Recovery PT-OP-C Subjective Start: 09/03/18 17:36 Freq: Status: Active Protocol: Document 10/08/18 08:05 EA (Rec: 10/08/18 08:11 EA [id number]) OP-PT Subjective Patient Comments Patient Comments Pt reports compliant with HEP; states low back gets better after home stretches. PT-OP-F Manual Assessment Start: 09/03/18 16:59 Freq: Status: Active Protocol: Document 09/03/18 17:01 EA (Rec: 09/03/18 17:36 EA [id number]) Manual Assessments Soft Tissue Assessment Soft Tissue Mobility Assessment Tight posterior lumbar and hip muscles, tight TFL PT-OP-G Mobility & Gait Start: 09/03/18 16:59 Freq: Status: Active Protocol: Document 09/03/18 17:36 EA (Rec: 09/03/18 17:37 EA [id number]) OP Gait Assessment Comments Gait Comments Waddling gait PT-OP-J Posture/Palpation/Skin Start: 09/03/18 16:59 Freq: Status: Active Protocol: Document 09/03/18 17:01 EA (Rec: 09/03/18 17:36 EA [id number]) Posture Evaluation Comments Posture Comments Obese- Increased lumbars lordosis Palpation Assessment Location One Palpation Location Bilateral QL, Paralumbars, Upper gluteal and Periformis Palpation Findings Soft Tissue Tightness Tenderness PT-OP-K Range of Motion Start: 09/03/18 16:59 Freq: Status: Active Protocol: Document 09/03/18 17:01 EA (Rec: 09/03/18 17:36 EA [id number]) Lumbar Spine Range of Motion Lumbar Spine Active Percentage Testing Position Standing Flexion 75 Extension 100 Rotation Left 75 Rotation Right 75 Lateral Flexion Left 75 Lateral Flexion Right 75 ROM Limitations Soft Tissue Tightness Pain Active Testing Position Standing Flexion 75 PT-OP-L Special Tests Start: 09/03/18 16:59 Freq: Status: Active Protocol: Document 09/03/18 17:01 EA (Rec: 09/03/18 17:36 EA [id number]) Special Tests Lumbar Spine Special Tests Other- 2 Test Results femoral tension test Comments Sensitive Other- 1 Test Results Lefty's Comments Neg Slump Test Results + Vertical Spine Loading Test Results - Straight Leg Raise Test Results right sensitive at 45deg Stork Test Test Results negative PT-OP-M Strength Start: 09/03/18 16:59 Freq: Status: Active Protocol: Document 09/03/18 17:01 EA (Rec: 09/03/18 17:36 EA [id number]) Trunk Strength Trunk Manual Muscle Testing Flexion 3+ Fair+ Extension 4- Good- Rotation Left 4- Good- Rotation Right 4- Good- Lateral Flexion Left 4- Good- Lateral Flexion Right 4- Good- Hip Strength Hip Manual Muscle Testing Right Flexion (L2) 5 Normal Extension (S1) 4+ Good+ Abduction 4+ Good+ Adduction 5 Normal External Rotation 4 Good Internal Rotation 4 Good Left Flexion (L2) 5 Normal Extension (S1) 4+ Good+ Abduction 4+ Good+ Adduction 5 Normal External Rotation 4 Good Internal Rotation 4 Good Comments Both LE MMT are WFL Knee Strength Knee Manual Muscle Testing Right Reason Not Measured WFL Left Reason Not Measured WFL Ankle/Foot Strength Ankle and Foot Manual Muscle Testing Right Reason Not Measured WFL Left Reason Not Measured WFL PT-OP-Q Treatments Start: 09/03/18 16:59 Freq: Status: Active Protocol: Document 10/08/18 08:05 EA (Rec: 10/08/18 08:11 EA [id number]) Cardio Equipment Recumbent Stepper (Sci-Fit) Duration (Minutes) 5 Resistance 3 Therapeutic Exercises Supine Exercises 6 Supine Exercise Name Partial sit up with SLR Reps/Minutes x 10 reps x 2 sets each leg 5 Supine Exercise Name Pelvic tilt /c air bike Reps/Minutes x 10 SH x 3 reps 4 Supine Exercise Name Bridge with marching Side bilateral Reps/Minutes 3x5 Comments VCs for core contraction 3 Supine Exercise Name Bridge /c feet on T-ball Side bilateral Reps/Minutes 2x10 Comments w/focus on core & glute & traction through LE to help facilitate for 6rep 2 Supine Exercise Name Lower trunk rotation /c feet on T-ball Side bilateral Reps/Minutes 15 Comments focus on core control 1 Supine Exercise Name pelvic tilt with marching Side bilateral Reps/Minutes 2x15 Sitting Exercises 1 Sitting Exercise Name Bench: side flexion and with rotaion, flexion and with rotation Side bilateral Reps/Minutes x 10 reps x 2 sets Standing Exercises 1 Standing Exercise Name Wall squat with PPT Reps/Minutes x 10 reps x 5SH Manual Therapy Treatment Soft Tissue Mobilization 1 Body Location QL/ES Mobilization Type Rolling Sustained Pressure Intensity/Depth Moderate Body Position Prone Comments pillow under stomach PT-OP-R Modalities Start: 09/03/18 16:59 Freq: Status: Active Protocol: Document 10/08/18 08:05 EA (Rec: 10/08/18 08:11 EA [id number]) Electric Stimulation Electric Stimulation Interferential Current (IFC) Body Location lumbar spine Duration (Minutes) 15 Intensity 28 Patient Position Prone Combined With Heat/Cold Hot Pack PT-OP-T Assessment and Plan Start: 09/03/18 16:59 Freq: Status: Active Protocol: Document 10/08/18 08:05 EA (Rec: 10/08/18 08:11 EA [id number]) Physical Therapy Assessment Assessment Summary Assessment Tenderness to left upper gluteal decreased after manual and e-stim. No signs of discomfort during therex however. Overall patient is progressing well. Physical Therapy Plan Next Visit Focus/Plan Next Note Type Treatment Note Next Visit Plan cont to advance abdominal strengthening, wall posture exercise, posture edu
--- NOTE | 2018-10-10 09:40 | PT.OTN ---
Current Diagnoses Sciatica, unspecified side (10/10/18) Dorsalgia, unspecified (10/10/18) Physical Therapy Treatment Note PT-OP-A Visit Information Start: 09/03/18 16:59 Freq: Status: Active Protocol: Document 10/10/18 09:00 DCW (Rec: 10/10/18 09:40 DCW [id number]) Out-Patient Physical Therapy Visit Information Visit Information Visit Type Treatment Note Visit Start Time 09:00 Visit Stop Time 09:50 Total Visit Minutes 50 Visit Number 6 Number of CAB STATION ATTENDANT Visits 0 Evaluation Information Evaluation Date 09/03/18 PT-OP-B Current Condition Start: 09/03/18 16:59 Freq: Status: Active Protocol: Document 09/03/18 17:01 EA (Rec: 09/03/18 17:36 EA [id number]) Current Condition History of Current Condition Onset Date 7 years ago Current Complaints Low back pain History of Current Condition Present c/o low back pain started 6 years ago which comes and goes with the use of superficial heating and prescribed pain medication. Pt reports no history of injury in the past; Skilled PT performed 2 months ago with good results, however unable to come back due to personal reasons and she has to wait with MRI results. Prior Treatments and Tests Formal skilled PT 2 months ago and did not completely resolved. Prescribed pain medication and muscle relaxant. MRI 06/30/18: no significant findings. Future Testing and Treatments Planned None identified Treatment Goals Patient/Caregiver Goals Patient wants to get rid of the pain. Patient wants to be able to move without discomfort Prior Functional Status Baseline Function- ADL's Independent Baseline Function- Mobility Independent Baseline Function- Gait Limited < a 2 mile due to excess body weight Baseline Function- Work/School Independent without limitation prior to re-aggravation five months ago Baseline Function- Recreation/Hobbies None identified Current Functional Impairments (Reported) Functional Limitations- ADL's Independent with limitation with activities combined with bending and lifting Functional Limitations- Mobility/Gait Decreased tolerance to more than 1 mile Functional Limitations- Work/School Independent with limitation in bending and lifting Personal Factors Other Personal Factors That May Effect Depression, pschological d/o Therapy/Recovery PT-OP-C Subjective Start: 09/03/18 17:36 Freq: Status: Active Protocol: Document 10/10/18 09:00 DCW (Rec: 10/10/18 09:40 DCW [id number]) OP-PT Subjective Patient Comments Patient Comments Pt reports she is exhausted. I haven't actually been to sleep yet, however she wants to break the habit of only coming once week, so she made sure she did not cancel. PT-OP-F Manual Assessment Start: 09/03/18 16:59 Freq: Status: Active Protocol: Document 09/03/18 17:01 EA (Rec: 09/03/18 17:36 EA [id number]) Manual Assessments Soft Tissue Assessment Soft Tissue Mobility Assessment Tight posterior lumbar and hip muscles, tight TFL PT-OP-G Mobility & Gait Start: 09/03/18 16:59 Freq: Status: Active Protocol: Document 09/03/18 17:36 EA (Rec: 09/03/18 17:37 EA [id number]) OP Gait Assessment Comments Gait Comments Waddling gait PT-OP-J Posture/Palpation/Skin Start: 09/03/18 16:59 Freq: Status: Active Protocol: Document 09/03/18 17:01 EA (Rec: 09/03/18 17:36 EA [id number]) Posture Evaluation Comments Posture Comments Obese- Increased lumbars lordosis Palpation Assessment Location One Palpation Location Bilateral QL, Paralumbars, Upper gluteal and Periformis Palpation Findings Soft Tissue Tightness Tenderness PT-OP-K Range of Motion Start: 09/03/18 16:59 Freq: Status: Active Protocol: Document 09/03/18 17:01 EA (Rec: 09/03/18 17:36 EA [id number]) Lumbar Spine Range of Motion Lumbar Spine Active Percentage Testing Position Standing Flexion 75 Extension 100 Rotation Left 75 Rotation Right 75 Lateral Flexion Left 75 Lateral Flexion Right 75 ROM Limitations Soft Tissue Tightness Pain Active Testing Position Standing Flexion 75 PT-OP-L Special Tests Start: 09/03/18 16:59 Freq: Status: Active Protocol: Document 09/03/18 17:01 EA (Rec: 09/03/18 17:36 EA [id number]) Special Tests Lumbar Spine Special Tests Other- 2 Test Results femoral tension test Comments Sensitive Other- 1 Test Results Gaenslen's Comments Neg Slump Test Results + Vertical Spine Loading Test Results - Straight Leg Raise Test Results right sensitive at 45deg Stork Test Test Results negative PT-OP-M Strength Start: 09/03/18 16:59 Freq: Status: Active Protocol: Document 09/03/18 17:01 EA (Rec: 09/03/18 17:36 EA [id number]) Trunk Strength Trunk Manual Muscle Testing Flexion 3+ Fair+ Extension 4- Good- Rotation Left 4- Good- Rotation Right 4- Good- Lateral Flexion Left 4- Good- Lateral Flexion Right 4- Good- Hip Strength Hip Manual Muscle Testing Right Flexion (L2) 5 Normal Extension (S1) 4+ Good+ Abduction 4+ Good+ Adduction 5 Normal External Rotation 4 Good Internal Rotation 4 Good Left Flexion (L2) 5 Normal Extension (S1) 4+ Good+ Abduction 4+ Good+ Adduction 5 Normal External Rotation 4 Good Internal Rotation 4 Good Comments Both LE MMT are WFL Knee Strength Knee Manual Muscle Testing Right Reason Not Measured WFL Left Reason Not Measured WFL Ankle/Foot Strength Ankle and Foot Manual Muscle Testing Right Reason Not Measured WFL Left Reason Not Measured WFL PT-OP-Q Treatments Start: 09/03/18 16:59 Freq: Status: Active Protocol: Document 10/10/18 09:00 DCW (Rec: 10/10/18 09:40 DCW [id number]) Cardio Equipment Recumbent Elliptical (Biodex) Duration (Minutes) 5 Resistance 4 Seat Position 6 Gym Equipment Cable Column (Body Solid) Plaloff Press Resistance 20# Therapeutic Ball Trunk Rotation Exercise Details Lower Trunk Rotation vs T-band Ball Size/Color Red - 55 cm Lv 3 T-band Body Position Sitting Therapeutic Exercises Supine Exercises 4 Supine Exercise Name Bridge with marching Side bilateral Reps/Minutes 3x5 Comments VCs for core contraction 3 Supine Exercise Name Bridge /c feet on T-ball Side bilateral Reps/Minutes 2x10 Comments w/focus on core & glute & traction through LE to help facilitate for 6rep Other Exercises child's pose Other Exercise Name mary pose fwd & to sides Side bilateral Reps/Minutes 30 sec holds cat/camel Other Exercise Name cat camel Reps/Minutes 15 Comments w/focus on lumbar flex Manual Therapy Treatment Soft Tissue Mobilization 1 Body Location QL/ES Mobilization Type Rolling Sustained Pressure Intensity/Depth Moderate Body Position Prone Comments pillow under stomach PT-OP-R Modalities Start: 09/03/18 16:59 Freq: Status: Active Protocol: Document 10/10/18 09:00 DCW (Rec: 10/10/18 09:40 DCW [id number]) Electric Stimulation Electric Stimulation Interferential Current (IFC) Body Location lumbar spine Duration (Minutes) 15 Intensity 28 Patient Position Prone Combined With Heat/Cold Hot Pack PT-OP-T Assessment and Plan Start: 09/03/18 16:59 Freq: Status: Active Protocol: Document 10/10/18 09:00 DCW (Rec: 10/10/18 09:40 DCW [id number]) Physical Therapy Assessment Impairments Impairments Activity Tolerance Pain Posture ROM Soft Tissue Mobility Strength Goals Five Impairment No HEP in place Group Home Goal (LTG) Patient will learn proper and safe exercises program not only for strengthening but as well safe exercises program to manage body weight LTG Duration 4 wks Four Impairment Sitting/standing posture tolerance less than 1 hour Newspaper Subscription Solicitor Goal (LTG) Patient will able to sit and stand > 1 hour with no increase in symptoms. LTG Duration 4 wks Three Impairment Weakness to both hip rotators, and trunk stabilizer Newspaper Subscription Solicitor Goal (LTG) Patient will increase both hip rotators, trunk stabilizer MMTg by 1/2 grade to prevent biomechanical dysfunction and to improve functional mobility . LTG Duration 4 wks. Two Impairment Oswestry impairment scale of 20% Group Home Goal (LTG) Patient will have Oswetry impairment scale of less than 5% to improve quality of life. LTG Duration 4 wks One Impairment Reported pain of 6/10 at worst with standing/sitting and walking Group Home Goal (LTG) Patient will report pain less than 1/10 at with standing, sitting and walking LTG Duration 4 wks Assessment Summary Assessment Pt unfortunately is nearing end of insurance authorization , will only have one visit remaining following today's appointment. Physical Therapy Plan Frequency and Duration Frequency of Treatment 2x/Week Duration of Treatment 8 wks Plan of Care Start Date 09/03/18 Plan of Care End Date 10/29/18 Next Visit Focus/Plan Next Note Type Discharge Summary
--- NOTE | 2018-10-15 08:54 | PT.OTN ---
Current Diagnoses Sciatica, unspecified side (10/15/18) Dorsalgia, unspecified (10/15/18) Physical Therapy Treatment Note PT-OP-A Visit Information Start: 09/03/18 16:59 Freq: Status: Active Protocol: Document 10/15/18 08:02 EA (Rec: 10/15/18 08:11 EA [id number]) Out-Patient Physical Therapy Visit Information Visit Information Visit Type Treatment Note Visit Note Discharge note to this date Visit Start Time 07:30 Visit Stop Time 08:15 Total Visit Minutes 45 Visit Number 8 PT-OP-B Current Condition Start: 09/03/18 16:59 Freq: Status: Active Protocol: Document 09/03/18 17:01 EA (Rec: 09/03/18 17:36 EA [id number]) Current Condition History of Current Condition Onset Date 7 years ago Current Complaints Low back pain History of Current Condition Present c/o low back pain started 6 years ago which comes and goes with the use of superficial heating and prescribed pain medication. Pt reports no history of injury in the past; Skilled PT performed 2 months ago with good results, however unable to come back due to personal reasons and she has to wait with MRI results. Prior Treatments and Tests Formal skilled PT 2 months ago and did not completely resolved. Prescribed pain medication and muscle relaxant. MRI 06/30/18: no significant findings. Future Testing and Treatments Planned None identified Treatment Goals Patient/Caregiver Goals Patient wants to get rid of the pain. Patient wants to be able to move without discomfort Prior Functional Status Baseline Function- ADL's Independent Baseline Function- Mobility Independent Baseline Function- Gait Limited < a 2 mile due to excess body weight Baseline Function- Work/School Independent without limitation prior to re-aggravation five months ago Baseline Function- Recreation/Hobbies None identified Current Functional Impairments (Reported) Functional Limitations- ADL's Independent with limitation with activities combined with bending and lifting Functional Limitations- Mobility/Gait Decreased tolerance to more than 1 mile Functional Limitations- Work/School Independent with limitation in bending and lifting Personal Factors Other Personal Factors That May Effect Depression, pschological d/o Therapy/Recovery PT-OP-C Subjective Start: 09/03/18 17:36 Freq: Status: Active Protocol: Document 10/15/18 08:02 EA (Rec: 10/15/18 08:11 EA [id number]) OP-PT Subjective Patient Comments Patient Comments Pt reports morning low back stiffness and disappears as they goes; overall all patient feels improved and is okay to discharge at this time to [facility] . Patient Reported Progress Improving Patient Questionnaires Oswestry Low Back Index Oswestry Score 35% Oswestry Impairment 20 to 39% Impaired (Score 20- 39) PT-OP-F Manual Assessment Start: 09/03/18 16:59 Freq: Status: Active Protocol: Document 09/03/18 17:01 EA (Rec: 09/03/18 17:36 EA [id number]) Manual Assessments Soft Tissue Assessment Soft Tissue Mobility Assessment Tight posterior lumbar and hip muscles, tight TFL PT-OP-G Mobility & Gait Start: 09/03/18 16:59 Freq: Status: Active Protocol: Document 09/03/18 17:36 EA (Rec: 09/03/18 17:37 EA [id number]) OP Gait Assessment Comments Gait Comments Waddling gait PT-OP-J Posture/Palpation/Skin Start: 09/03/18 16:59 Freq: Status: Active Protocol: Document 09/03/18 17:01 EA (Rec: 09/03/18 17:36 EA [id number]) Posture Evaluation Comments Posture Comments Obese- Increased lumbars lordosis Palpation Assessment Location One Palpation Location Bilateral QL, Paralumbars, Upper gluteal and Periformis Palpation Findings Soft Tissue Tightness Tenderness PT-OP-K Range of Motion Start: 09/03/18 16:59 Freq: Status: Active Protocol: Document 09/03/18 17:01 EA (Rec: 09/03/18 17:36 EA [id number]) Lumbar Spine Range of Motion Lumbar Spine Active Percentage Testing Position Standing Flexion 75 Extension 100 Rotation Left 75 Rotation Right 75 Lateral Flexion Left 75 Lateral Flexion Right 75 ROM Limitations Soft Tissue Tightness Pain Active Testing Position Standing Flexion 75 PT-OP-L Special Tests Start: 09/03/18 16:59 Freq: Status: Active Protocol: Document 09/03/18 17:01 EA (Rec: 09/03/18 17:36 EA [id number]) Special Tests Lumbar Spine Special Tests Other- 2 Test Results femoral tension test Comments Sensitive Other- 1 Test Results Gaenslen's Comments Neg Slump Test Results + Vertical Spine Loading Test Results - Straight Leg Raise Test Results right sensitive at 45deg Stork Test Test Results negative PT-OP-M Strength Start: 09/03/18 16:59 Freq: Status: Active Protocol: Document 09/03/18 17:01 EA (Rec: 09/03/18 17:36 EA [id number]) Trunk Strength Trunk Manual Muscle Testing Flexion 3+ Fair+ Extension 4- Good- Rotation Left 4- Good- Rotation Right 4- Good- Lateral Flexion Left 4- Good- Lateral Flexion Right 4- Good- Hip Strength Hip Manual Muscle Testing Right Flexion (L2) 5 Normal Extension (S1) 4+ Good+ Abduction 4+ Good+ Adduction 5 Normal External Rotation 4 Good Internal Rotation 4 Good Left Flexion (L2) 5 Normal Extension (S1) 4+ Good+ Abduction 4+ Good+ Adduction 5 Normal External Rotation 4 Good Internal Rotation 4 Good Comments Both LE MMT are WFL Knee Strength Knee Manual Muscle Testing Right Reason Not Measured WFL Left Reason Not Measured WFL Ankle/Foot Strength Ankle and Foot Manual Muscle Testing Right Reason Not Measured WFL Left Reason Not Measured WFL PT-OP-Q Treatments Start: 09/03/18 16:59 Freq: Status: Active Protocol: Document 10/15/18 08:02 EA (Rec: 10/15/18 08:11 EA [id number]) Cardio Equipment Recumbent Elliptical (DataCert) Duration (Minutes) 5 Resistance 4 Seat Position 6 Therapeutic Exercises Supine Exercises 6 Supine Exercise Name Partial sit up with SLR Reps/Minutes x 10 reps x 2 sets each leg Comments HEP comp 5 Supine Exercise Name Pelvic tilt /c air bike Reps/Minutes x 10 SH x 3 reps Comments HEP comp 4 Supine Exercise Name Bridge with marching Side bilateral Reps/Minutes 3x5 Comments VCs for core contraction 3 Supine Exercise Name Bridge /c feet on T-ball Side bilateral Reps/Minutes 2x10 Comments w/focus on core & glute & traction through LE to help facilitate for 6rep 2 Supine Exercise Name Lower trunk rotation /c feet on T-ball Side bilateral Reps/Minutes 15 Comments HEP comp 1 Supine Exercise Name pelvic tilt with marching Side bilateral Reps/Minutes 2x15 Comments HEP comp Sitting Exercises 1 Sitting Exercise Name Bench: side flexion and with rotaion, flexion and with rotation Side bilateral Reps/Minutes x 10 reps x 2 sets Standing Exercises 2 Standing Exercise Name TB upper trunk rotation Side bilateral Resistance Lv 1 Reps/Minutes x 10 reps 1 Standing Exercise Name Wall squat with PPT Reps/Minutes x 10 reps x 5SH Other Exercises 1 Other Exercise Name Floor to waist lift with good mechanics Resistance 15 lbs Reps/Minutes x 10 reps child's pose Other Exercise Name mary pose fwd & to sides Side bilateral Reps/Minutes 30 sec holds Comments HEP comp cat/camel Other Exercise Name cat camel Reps/Minutes 15 Comments w/focus on lumbar flex Self-Care/Home Management Treatment Education Patient Education [employer] Home Exercise Program Pain Management Posture PT-OP-R Modalities Start: 09/03/18 16:59 Freq: Status: Active Protocol: Document 10/10/18 09:00 DCW (Rec: 10/10/18 09:40 DCW [id number]) Electric Stimulation Electric Stimulation Interferential Current (IFC) Body Location lumbar spine Duration (Minutes) 15 Intensity 28 Patient Position Prone Combined With Heat/Cold Hot Pack PT-OP-T Assessment and Plan Start: 09/03/18 16:59 Freq: Status: Active Protocol: Document 10/15/18 08:02 EA (Rec: 10/15/18 08:11 EA [id number]) Physical Therapy Assessment Assessment Summary Assessment Pt exhibits improve independent exercises with no discomfort during therex; overall patient is progressing well. Patient is discharge to [facility] today. Physical Therapy Plan Discharge Physical Therapy Discharge Reasons Patient Request Discharge Comments Insurance limitation
--- NOTE | 2018-10-15 08:54 | PT.OPDS ---
Current Diagnoses Sciatica, unspecified side (10/15/18) Dorsalgia, unspecified (10/15/18) Provider Visit Care Team Role Provider Type Nigel Arora MD Attending Provider Physician Primary Care Provider Specialty: Internal Medicine Address: [address] [place] [address], [facility] Email: Visit Number Visit Number 8 Discharge Summary PT-OP-B Current Condition Start: 09/03/18 16:59 Freq: Status: Active Protocol: Document 09/03/18 17:01 EA (Rec: 09/03/18 17:36 EA [id number]) Current Condition History of Current Condition Onset Date 7 years ago Current Complaints Low back pain History of Current Condition Present c/o low back pain started 6 years ago which comes and goes with the use of superficial heating and prescribed pain medication. Pt reports no history of injury in the past; Skilled PT performed 2 months ago with good results, however unable to come back due to personal reasons and she has to wait with MRI results. Prior Treatments and Tests Formal skilled PT 2 months ago and did not completely resolved. Prescribed pain medication and muscle relaxant. MRI 06/30/18: no significant findings. Future Testing and Treatments Planned None identified Treatment Goals Patient/Caregiver Goals Patient wants to get rid of the pain. Patient wants to be able to move without discomfort Prior Functional Status Baseline Function- ADL's Independent Baseline Function- Mobility Independent Baseline Function- Gait Limited < a 2 mile due to excess body weight Baseline Function- Work/School Independent without limitation prior to re-aggravation five months ago Baseline Function- Recreation/Hobbies None identified Current Functional Impairments (Reported) Functional Limitations- ADL's Independent with limitation with activities combined with bending and lifting Functional Limitations- Mobility/Gait Decreased tolerance to more than 1 mile Functional Limitations- Work/School Independent with limitation in bending and lifting Personal Factors Other Personal Factors That May Effect Depression, pschological d/o Therapy/Recovery PT-OP-C Subjective Start: 09/03/18 17:36 Freq: Status: Active Protocol: Document 10/15/18 08:02 EA (Rec: 10/15/18 08:11 EA [id number]) OP-PT Subjective Patient Comments Patient Comments Pt reports morning low back stiffness and disappears as they goes; overall all patient feels improved and is okay to discharge at this time to [facility] . Patient Reported Progress Improving Patient Questionnaires Oswestry Low Back Index Oswestry Score 35% Oswestry Impairment 20 to 39% Impaired (Score 20- 39) PT-OP-F Manual Assessment Start: 09/03/18 16:59 Freq: Status: Active Protocol: Document 09/03/18 17:01 EA (Rec: 09/03/18 17:36 EA [id number]) Manual Assessments Soft Tissue Assessment Soft Tissue Mobility Assessment Tight posterior lumbar and hip muscles, tight TFL PT-OP-G Mobility & Gait Start: 09/03/18 16:59 Freq: Status: Active Protocol: Document 09/03/18 17:36 EA (Rec: 09/03/18 17:37 EA [id number]) OP Gait Assessment Comments Gait Comments Waddling gait PT-OP-J Posture/Palpation/Skin Start: 09/03/18 16:59 Freq: Status: Active Protocol: Document 09/03/18 17:01 EA (Rec: 09/03/18 17:36 EA [id number]) Posture Evaluation Comments Posture Comments Obese- Increased lumbars lordosis Palpation Assessment Location One Palpation Location Bilateral QL, Paralumbars, Upper gluteal and Periformis Palpation Findings Soft Tissue Tightness Tenderness PT-OP-K Range of Motion Start: 09/03/18 16:59 Freq: Status: Active Protocol: Document 09/03/18 17:01 EA (Rec: 09/03/18 17:36 EA [id number]) Lumbar Spine Range of Motion Lumbar Spine Active Percentage Testing Position Standing Flexion 75 Extension 100 Rotation Left 75 Rotation Right 75 Lateral Flexion Left 75 Lateral Flexion Right 75 ROM Limitations Soft Tissue Tightness Pain Active Testing Position Standing Flexion 75 PT-OP-L Special Tests Start: 09/03/18 16:59 Freq: Status: Active Protocol: Document 09/03/18 17:01 EA (Rec: 09/03/18 17:36 EA [id number]) Special Tests Lumbar Spine Special Tests Other- 2 Test Results femoral tension test Comments Sensitive Other- 1 Test Results Galen's Comments Neg Slump Test Results + Vertical Spine Loading Test Results - Straight Leg Raise Test Results right sensitive at 45deg Stork Test Test Results negative PT-OP-M Strength Start: 09/03/18 16:59 Freq: Status: Active Protocol: Document 09/03/18 17:01 EA (Rec: 09/03/18 17:36 EA [id number]) Trunk Strength Trunk Manual Muscle Testing Flexion 3+ Fair+ Extension 4- Good- Rotation Left 4- Good- Rotation Right 4- Good- Lateral Flexion Left 4- Good- Lateral Flexion Right 4- Good- Hip Strength Hip Manual Muscle Testing Right Flexion (L2) 5 Normal Extension (S1) 4+ Good+ Abduction 4+ Good+ Adduction 5 Normal External Rotation 4 Good Internal Rotation 4 Good Left Flexion (L2) 5 Normal Extension (S1) 4+ Good+ Abduction 4+ Good+ Adduction 5 Normal External Rotation 4 Good Internal Rotation 4 Good Comments Both LE MMT are WFL Knee Strength Knee Manual Muscle Testing Right Reason Not Measured WFL Left Reason Not Measured WFL Ankle/Foot Strength Ankle and Foot Manual Muscle Testing Right Reason Not Measured WFL Left Reason Not Measured WFL PT-OP-T Assessment and Plan Start: 09/03/18 16:59 Freq: Status: Active Protocol: Document 10/15/18 08:02 EA (Rec: 10/15/18 08:11 EA [id number]) Physical Therapy Assessment Assessment Summary Assessment Pt exhibits improve independent exercises with no discomfort during therex; overall patient is progressing well. Patient is discharge to [facility] today. Physical Therapy Plan Discharge Physical Therapy Discharge Reasons Patient Request Discharge Comments Insurance limitation
== END 2018-10-15 11:14 ==
LOC: PHYS 07:30
PROVIDERS: PCP Student in an Organized Health Care Education/Training Program; Visit Provider Student in an Organized Health Care Education/Training Program
DX: M54.30 Sciatica, unspecified side (principal); M54.9 Dorsalgia, unspecified
CPT/HCPCS: 97014; 97110; 97140; 97161; 97535; G0283

== ENCOUNTER 2018-10-27 14:49 | Emergency (ER) | payer OTHER, MEDICAID, SELFPAY ==
[2018-10-27 14:58] VITALS: BP 127/87; PULSE 127; RESP 22; TEMP 37.1; O2SAT 100
--- NOTE | 2018-10-27 15:16 | PC.NURSE ---
Pt to room 13. When asked to get changed, became hostile and verbally refused stating she would leave. Informed at this time she could not leave as she had threatened to harm herself. Discussed that changing was not an option as it had to do with safety. Pt then agreed. 1:1 sitter at door.
--- NOTE | 2018-10-27 15:30 | PC.NURSE ---
Had patient remove her clothing and locked up her belongings. Patient laying on bed and sister is in room by her side visiting. Also had her sister lock up her purse in family locker in [place] Gave patient cup of water. Patient calmly talking with sister.
--- NOTE | 2018-10-27 15:39 | PC.NURSE ---
cost recovery technician arrived and is drawing patient's blood, patient asked her sister to distract her and she is giving her supportive words and they are laughing together
[2018-10-27 15:40] LABS: Urine Tetrahydrocannabinol Positive (Negative)
[2018-10-27 15:41] LABS: Urine Amphetamines Negative (Negative); Urine Barbiturates Negative (Negative); Urine Benzodiazepines Negative (Negative); Urine Cocaine Negative (Negative); Urine MDMA Negative (Negative); Urine Methadone Negative (Negative); Urine Methamphetamines Negative (Negative); Urine Morphine/Opi cutoff 2000 Negative (Negative); Urine Oxycodone Negative (Negative); Urine Phencyclidine Negative (Negative); Urine Tricyclic Antidepressant Positive (Negative)
--- NOTE | 2018-10-27 15:41 | PC.NURSE ---
Sister of patient sitting next to her holding her hand while blood is being drawn
[2018-10-27 15:53] LABS: Add Manual Diff / Slide Review NO; Basophils Absolute Auto 100 /uL (0-100); Basophils Percent Auto 0.6 % (0-2); Eosinophils Absolute Auto 100 /uL (0-450); Hematocrit 43.7 % (36-46); Hemoglobin 14.3 g/dL (12.0-16.0); Lymphocytes Absolute Auto 1400 /uL (1100-4500); Mean Corpuscular HGB Conc 32.7 % (30-36); Mean Corpuscular Hemoglobin 26.2 PG (26-34); Mean Corpuscular Volume 79.9 fL (80-100); Monocytes Absolute Auto 500 /uL (0-900); Monocytes Percent Auto 4.2 % (3-14); Neutrophils Absolute Auto 10500 /uL (1500-7000); Neutrophils Percent Auto 83.2 % (50-75); Platelet Count 321 X10^3/uL (150-400); Red Blood Cell Count 5.46 X10^6/uL (4.0-5.2); Red Cell Distribution Width 14.9 % (11.6-14.8); White Blood Cell Count 12.6 X10^3/uL (4.5-11.0)
--- NOTE | 2018-10-27 15:53 | PC.NURSE ---
Physician in room speaking with patient and her sister is telling her about the patient's history and medication and condition
[2018-10-27 15:54] LABS: Bacteria Urine None Seen; RBC Urine None Seen (0-5/HPF); WBC Urine None Seen (0-5/HPF)
--- NOTE | 2018-10-27 15:58 | PC.NURSE ---
Patient asked for more ice water so RN brought her some. Patient's sister remains in the room visiting with patient
--- NOTE | 2018-10-27 16:00 | ED_ITS ---
HPI - Psych General Chief Complaint: Psychiatric Symptoms Stated Complaint: SUICIDAL Time Seen by Provider: 10/27/18 15:43 Source: patient and family Mode of arrival: ambulatory Limitations: no limitations History of Present Illness HPI Narrative: patient is a 28-year-old female who presents with suicidal ideations. She has history of bipolar and suicidal attempt hospitalizations in the past. She says her moods have been not been stable for the past few weeks. Her Latuda dose was decreased 3 months ago due to side effects. His she states 1 min she feels okay on not wanting to hurt herself however the next is really unpredictable. His she is voluntary and wanting help. She does not want to go to [facility] or [facility]. MD complaint: suicidal ideation and feels depressed Related Data Home Medications Medication Instructions Recorded Confirmed lurasidone 60 mg tablet 60 mg PO DAILY 10/22/18 10/27/18 buspirone 5 mg PO TID 10/27/18 10/27/18 lamotrigine 150 mg PO BEDTIME 10/27/18 10/27/18 prazosin 1 mg PO BEDTIME 10/27/18 10/27/18 trazodone 100 - 200 mg PO BEDTIME PRN 10/27/18 10/27/18 trihexyphenidyl 2 mg PO TID 10/27/18 10/27/18 Previous Rx's Medication Instructions Recorded citalopram 20 mg tablet 20 mg PO DAILY #30 tab 03/26/18 ibuprofen 800 mg tablet 800 mg PO TID PRN #90 tab 05/29/18 cyclobenzaprine 10 mg tablet 10 mg PO TID #90 tab 07/29/18 oxycodone-acetaminophen 5 mg-325 1 tab PO Q6H PRN #120 tab 10/22/18 mg tablet Allergies Allergy/AdvReac Type Severity Reaction Status Date / Time No Known Drug Allergies Allergy Verified 10/22/18 15:50 Review of Systems Review of Systems GENERAL: Denies chills, fatigue, malaise, fever, sweats, travel HEENT: Denies sinus pain, ear pain, sore throat, difficulty swallowing, neck pain RESPIRATORY: Denies dyspnea, cough, wheezing, hemoptysis, sputum. CARDIOVASCULAR: Denies chest pain, palpitations, orthopnea, edema GASTROINTESTINAL: Denies nausea, vomiting, abdominal pain, diarrhea, constipation, melena. : Denies dysuria, frequency, incontinence, hematuria, urinary retention, flank pain. MUSCULOSKELETAL: Denies weakness, joint pain, or bony pain SKIN: No rash, no erythema, no pruritus NEUROLOGIC: Denies weakness, dizziness, headache, numbness, change in speech, confusion PSYCHIATRIC: See HPI 12 point review of systems is negative except for those stated above and HPI PFSH Social History Smoking Status: Current every day smoker Tobacco: How many years used: 10 alcohol intake: never substance use type: does not use Exam Initial Vital Signs Initial Vital Signs: Vital Signs Temperature 98.8 F 10/27/18 14:58 Pulse Rate 127 H 10/27/18 14:58 Respiratory Rate 22 10/27/18 14:58 Blood Pressure 127/87 10/27/18 14:58 Pulse Oximetry 100 10/27/18 14:58 GENERAL: Alert well female HEENT: Head atraumatic,EOMI, pupils reactive CARDIOVASCULAR: Regular rate and rhythm without murmurs, rubs or gallops. RESPIRATORY: Breath sounds equal bilaterally, no wheezes rales or rhonchi. ABDOMEN: Soft, nontender. Normoactive bowel sounds all 4 quadrants. No guardin g or rebound. EXTREMITIES: Normal range of motion, no clubbing or edema. Neurovascularly intact NEUROLOGICAL: Alert and oriented x4.Normal gait and speech. SKIN: Warm, dry, no laceration, no petechiae, no rashes or lesions. Psych Appearance: grossly normal Mental Status: mental status grossly normal Speech and Movement: pressured speech Mood: congruent mood Affect: normal affect Attitude: cooperative Thought Process: circumstantial Thought Content: compulsions Judgment: judgment good Course Orders Ordered: Discontinued Medications Acetaminophen (Tylenol) 975 mg PO NOW ONE Stop: 10/27/18 18:22 Last Admin: 10/27/18 18:23 Dose: 975 mg Vital Signs - 8 hr 10/27/18 14:58 10/27/18 18:45 Temperature 98.8 F 97.9 F Pulse Rate 127 H 84 Respiratory Rate 22 18 Blood Pressure 127/87 Blood Pressure [Left Arm] 132/84 Pulse Oximetry 100 99 MDM - Psych Lab Data Attestation: I reviewed the patient's lab results. Result diagrams: 10/27/18 15:44 10/27/18 15:44 Lab Results 10/27/18 10/27/18 10/27/18 Range/Units 15:10 15:10 15:44 WBC 12.6 H (4.5-11.0) X10^3/uL RBC 5.46 H (4.0-5.2) X10^6/uL Hgb 14.3 (12.0-16.0) g/dL Hct 43.7 (36-46) % MCV 79.9 L (80-100) fL MCH 26.2 (26-34) PG MCHC 32.7 (30-36) % RDW 14.9 H (11.6-14.8) % Plt Count 321 (150-400) X10^3/uL Neut % (Auto) 83.2 H (50-75) % Lymph % (Auto) 11.0 L (25-40) % [place] % (Auto) 4.2 (3-14) % Eos % (Auto) 1.0 L (2-4) % Baso % (Auto) 0.6 (0-2) % Neut # (Auto) 43114 H (4429-7049) /uL Lymph # (Auto) 1400 (6566-1491) /uL [place] # (Auto) 500 (0-900) /uL Eos # (Auto) 100 (0-450) /uL Baso # (Auto) 100 (0-100) /uL Sodium (137-145) mmol/L Potassium (3.4-5.1) mmol/L Chloride (98-107) mmol/L Carbon Dioxide (22-32) mmol/L BUN (7-17) mg/dL Creatinine (0.52-1.04) mg/dL Estimated GFR (>60) mL/min BUN/Creatinine Ratio (6-22) Glucose (70-100) mg/dL Calcium (8.4-10.2) mg/dL Total Bilirubin (0.2-1.3) mg/dL AST (14-36) IU/L ALT (9-52) IU/L Alkaline Phosphatase (38-126) U/L Total Protein (6.3-8.2) g/dL Albumin (3.5-5.0) g/dL Globulin (1.7-4.1) g/dL Albumin/Globulin Ratio (1.0-2.8) TSH (0.47-4.68) uIU/mL Urine RBC None seen (0-5/HPF) Urine WBC None seen (0-5/HPF) Ur Squamous Epith Cells 0-1 /hpf Calcium Oxalate Crystal Occasional H (None) Urine Bacteria None seen (None) Ur Culture Indicated? Cult not indicated Salicylates (<20) mg/dL Urine Opiates Screen Negative (Negative) Ur Oxycodone Screen Negative (Negative) Urine Methadone Screen Negative (Negative) Acetaminophen (10-30) ug/mL Ur Barbiturates Screen Negative (Negative) U Tricyclic Antidepress Positive H (Negative) Ur Phencyclidine Scrn Negative (Negative) Ur Amphetamines Screen Negative (Negative) U Methamphetamines Scrn Negative (Negative) Ur MDMA Scrn (Ecstasy) Negative (Negative) U Benzodiazepines Scrn Negative (Negative) Urine Cocaine Screen Negative (Negative) U Marijuana (THC) Screen Positive H (Negative) Ethyl Alcohol mg/dL 10/27/18 10/27/18 Range/Units 15:44 15:44 WBC (4.5-11.0) X10^3/uL RBC (4.0-5.2) X10^6/uL Hgb (12.0-16.0) g/dL Hct (36-46) % MCV (80-100) fL MCH (26-34) PG MCHC (30-36) % RDW (11.6-14.8) % Plt Count (150-400) X10^3/uL Neut % (Auto) (50-75) % Lymph % (Auto) (25-40) % [place] % (Auto) (3-14) % Eos % (Auto) (2-4) % Baso % (Auto) (0-2) % Neut # (Auto) (5918-4857) /uL Lymph # (Auto) (3219-0490) /uL [place] # (Auto) (0-900) /uL Eos # (Auto) (0-450) /uL Baso # (Auto) (0-100) /uL Sodium 139 (137-145) mmol/L Potassium 4.3 (3.4-5.1) mmol/L Chloride 103 (98-107) mmol/L Carbon Dioxide 24 (22-32) mmol/L BUN 15 (7-17) mg/dL Creatinine 0.80 (0.52-1.04) mg/dL Estimated GFR > 60.0 (>60) mL/min BUN/Creatinine Ratio 18.8 (6-22) Glucose 90 (70-100) mg/dL Calcium 9.7 (8.4-10.2) mg/dL Total Bilirubin 0.3 (0.2-1.3) mg/dL AST 24 (14-36) IU/L ALT 29 (9-52) IU/L Alkaline Phosphatase 84 (38-126) U/L Total Protein 8.9 H (6.3-8.2) g/dL Albumin 4.9 (3.5-5.0) g/dL Globulin 4.0 (1.7-4.1) g/dL Albumin/Globulin Ratio 1.2 (1.0-2.8) TSH 2.71 (0.47-4.68) uIU/mL Urine RBC (0-5/HPF) Urine WBC (0-5/HPF) Ur Squamous Epith Cells Calcium Oxalate Crystal (None) Urine Bacteria (None) Ur Culture Indicated? Salicylates < 1.0 (<20) mg/dL Urine Opiates Screen (Negative) Ur Oxycodone Screen (Negative) Urine Methadone Screen (Negative) Acetaminophen < 10 L (10-30) ug/mL Ur Barbiturates Screen (Negative) U Tricyclic Antidepress (Negative) Ur Phencyclidine Scrn (Negative) Ur Amphetamines Screen (Negative) U Methamphetamines Scrn (Negative) Ur MDMA Scrn (Ecstasy) (Negative) U Benzodiazepines Scrn (Negative) Urine Cocaine Screen (Negative) U Marijuana (THC) Screen (Negative) Ethyl Alcohol < 10 mg/dL Point of Care Testing Test Results Negative Urine Dip Bedside Urine Glucose Negative Bedside Urine Bilirubin - Negative Bedside Urine Ketone - Negative Urine Specific [place] 1.030 Bedside Urine Occult Blood - Negative Bedside Urine pH 6.0 Bedside Urine Protein + 30 Bedside Urine Urobilinogen - Negative Bedside Urine Nitrite - Negative Bedside Urine Leukocytes - Negative Esterase MDM Narrative Medical decision making narrative: Patient really is not able to contract for safety. The family would like to help her and keep her safe but do not feel comfortable with her home due to her of quite labile moods. Patient remains voluntary. social work seen evaluated patient. Bed is [place] her gland. Dr. Norris is accepting physician. Discharge Plan Departure Patient Disposition: Xfer Psychiatric Hosp Clinical Impression: Suicidal ideation Discharge Date/Time: 10/27/18 19:48 Interventions: ED Discharge Assessment Last Done: 10/27/18 19:48 Referrals: Nigel Arora MD [Primary Care Provider] -
--- NOTE | 2018-10-27 16:01 | PC.NURSE ---
The bathroom door and lockbox both are locked and secure, patient on bed with warm blankets
[2018-10-27 16:09] LABS: Acetaminophen < 10 ug/mL (10-30); Alanine Aminotransferase 29 IU/L (9-52); Albumin 4.9 g/dL (3.5-5.0); Albumin Globulin Ratio 1.2 (1.0-2.8); Alkaline Phosphatase 84 U/L (38-126); Aspartate Aminotransferase 24 IU/L (14-36); BUN Creatinine Ratio 18.8 (6-22); Bilirubin Total 0.3 mg/dL (0.2-1.3); Blood Urea Nitrogen 15 mg/dL (7-17); Calcium 9.7 mg/dL (8.4-10.2); Carbon Dioxide 24 mmol/L (22-32); Chloride 103 mmol/L (98-107); Estimated Glomerular Filt Rate > 60.0 mL/min (>60); Ethanol (ETOH) < 10 mg/dL; Glucose 90 mg/dL (70-100); HEMOLYSIS 23 (0-50); Potassium 4.3 mmol/L (3.4-5.1); Sodium 139 mmol/L (137-145); Total Protein 8.9 g/dL (6.3-8.2)
[2018-10-27 16:10] LABS: Salicylate < 1.0 mg/dL (<20)
--- NOTE | 2018-10-27 16:21 | PC.NURSE ---
Radha KRAFT DIGESTER OPERATOR is consulting with patient at this time, and coming up with plan for patient
--- NOTE | 2018-10-27 16:22 | PC.NURSE ---
Patient telling LEAD MACHINIST that she feels she cannot trust herself at home alone and her sister concurs
--- NOTE | 2018-10-27 16:30 | PC.NURSE ---
Patient asked for a snack so brought her a chicken sandwich, vanilla pudding, apple juice and more ice water
--- NOTE | 2018-10-27 16:39 | PC.NURSE ---
Patient's sister remains in her room visiting with her
[2018-10-27 16:41] LABS: Calcium Oxalate Crystals Urine Occasional; Squamous Epithelial Cell Urine 0-1 /HPF
[2018-10-27 16:42] LABS: Culture Indicated Urine Cult Not Indicated
--- NOTE | 2018-10-27 16:42 | CM.SWNOTE ---
Addendum entered by ANNE Zhong 10/27/18 18:52: Return call from [facility] intake stating that they do not feel that they have an appropriate bed for the pt as their only opening is a double occupancy room and they feel pt would better benefit from a single room. Return call from [facility] stating pt has been accepted at their [place] location and can accept the pt at any time. Accepting MD is Dr. Norris and RN to RN report line is [phone]. SW confirmed that they only need the finalized MD note faxed to them and the VOA Inpt Notification Form faxed to [facility] prior to transfer. SW updated SEARCH LEAD, RN, and MD and [facility] setting up transport through [facility] to arrive around 1930 to transport to [facility]. RN has updated pt's sister and SW met bedside with pt and updated on above information and pt agreeable still to voluntary placement and appreciative. GENNA updated [facility] on transport time. GENNA faxed the [facility] Voluntary Psych Inpt Notification form with requested pt information and updated [facility] that it was faxed. SW to fax final MD documentation to [facility] when available. ANNE Zhong Original Note: Addendum entered by ANNE Zhong 10/27/18 18:16: ADD: GENNA called the following Voluntary MH facilities: [place]: left msg [facility]: full [place] [facility]: full [facility] and [facility]: Patient refuses facilities [facility]: reviewing [facility]: reviewing SW faxed pt clinicals and MH assessment to both [facility] and [facility] for review to determine if they can accept the pt. GENNA called and confirmed both facilities received clinicals and still reviewing as of 1814. BF Original Note: Mental Health Assessment Patient is a 28 year old female who was admitted to [facility] ER on 10/27/18 for Suicidal Ideation with plan of overdose on Trazadone. Patient has P HO and Medicaid for insurance and her PCP is Dr. Nigel Arora. EMR was reviewed. Per MD, pt able to contract for safety here at the hospital but not currently in the community and is voluntary for Mental health Inpt hospitalization. SW met bedside with pt in the ER in secured room 13 with sister Areli and explained role. Pt is alert and oriented x3 and pt participated in goal directed discussion and provided information freely. Pt continues to endorse suicidal ideation and does not feel safe for d/c home to the community and is voluntarily requesting Inpt Mental Health hospitalization. Pt makes eye contact but with frequent breaks in eye contact and seems to somewhat disheveled in appearance and confirms that she has had disturbances in sleep stating that she has not been sleeping at night even after attempts from her PCP to help with sleep. Pt has normal speech and denies any visual or auditory stimuli but states she has some racing thoughts. Hx of Tx: Patient states that she has been in mental health counseling on and off for the past 12 years and has been enrolled in [facility] [employer], [facility], and [facility] for outpt mental health and medication management and is currently enrolled with [facility] and her counselor is An[facility] and her Prescriber for medication management is Lanie at [facility] in [facility]. Pt has outpt counseling with Anish Park 1x a week and completes most of her homework. Pt has a long hx of suicidal ideation and Inpt MH hospitalizations at [facility], [facility], and [facility] with at least 2 previous suicidal attempts. Patient's last Inpt MH hospitalization was at [facility] in May 2017 with success of maintaining her longest time in the community with outpt providers for support without the need for Emergency Room or Crisis Stabilization. Patients Dx hx includes: Bipolar Disorder, Borderline Personality DO, Depression, Anxiety, PTSD. Patient states that she has struggled with medication management to control her mood swings and medication side effects. CD hx: Pt denies any illicit drug/alcohol use. UDS screen pending. Legal: Patient denies Medical: See H&P Family/Social: Patient resides with her sister and roommates who she feels are involved and supportive. Patient has at least 2 children who are not in her custody but are currently under guardianship with pt's mother and pt has regular supervised visitation every other weekend. Patient has anniversary of 2 family members last year that have triggered some emotional difficulties and currently cannot identify any precipitating events that triggered her suicidal ideation other than med management issues and regular life stressors. Assessment: Patient has many attempts at least restrictive options and is currently enrolled in outpt mental health and medication management and has a hx [facility] for stabilization and refuses least restrictive options at this time stating she does not feel that she could maintain safety in the community with family and outpt providers and is requesting Voluntary Inpt MH hospitalization for med management, stablization, and feels that she is at a more appropriate stage to fully benefit from Inpt treatment for longer stabilization in the community. Plan: I have discussed the pt's situation and voluntary placement and MD also recommending Inpt MH stabilization and treatment. SW will now begin the process of securing a MH bed and insurance authorization to maintain pt's safety. ANNE Zhong
[2018-10-27 16:50] LABS: Thyroid Stimulating Hormone 2.71 uIU/mL (0.47-4.68)
--- NOTE | 2018-10-27 17:01 | PC.NURSE ---
Patient's sister remains in room with her and they are visiting
--- NOTE | 2018-10-27 17:06 | PC.NURSE ---
Patient sitting on bed with sister by her side, quietly visiting and fidgeting with her ID bracelet and sister on her IPhone, talking quietly to each other
--- NOTE | 2018-10-27 17:11 | PC.NURSE ---
SATURATION EQUIPMENT OPERATOR rep updated the patient on status, checking on facility availability and patient asked if she could have some nicotine gum. Checking with RN if available...
--- NOTE | 2018-10-27 17:23 | PC.NURSE ---
Patient had inquired about nicotine gum and RN told her that we only have nicotine patches, but patient declined the patch Brought patient new warm blankets
--- NOTE | 2018-10-27 17:24 | PC.NURSE ---
Patient's sister leaving and asked that if we find placement for patient to call her...told her we definitely would Patient laying down resting now
--- NOTE | 2018-10-27 17:27 | PC.NURSE ---
Dimmed lights in room so patient can rest, still able to view patient on bed
--- NOTE | 2018-10-27 18:01 | PC.NURSE ---
Patient resting, lights dimmed. Calm and cooperative. Sitter remains at bedside.
--- NOTE | 2018-10-27 18:08 | PC.NURSE ---
COMMUNITY FACILITATOR/ALESSANDRO Note: Pt. is requesting pain meds for headache. COMMUNITY FACILITATOR reassured Pt. that she will notify the nurse. RN was notified. Pt. had bathroom privileges. Now Pt. is laying down in [facility].
[2018-10-27] MEDS: ACETAMINOPHEN 325 MG TABLET 975 MG PO (18:23)
--- NOTE | 2018-10-27 18:31 | PC.NURSE ---
Patient provided with aramis and cluadette
[2018-10-27 18:45] VITALS: BP 132/84; PULSE 84; RESP 18; TEMP 36.6; O2SAT 99
[2018-10-30 13:37] LABS: Lamotrigine Lamictal 1.4 mcg/mL (4.0-18.0)
== END 2018-10-27 19:48 ==
PROVIDERS: Emergency Provider Emergency Medicine; PCP Student in an Organized Health Care Education/Training Program
DX: R45.851 Suicidal ideations (principal)
CPT/HCPCS: 36415; 80053; 80175; 80305; 80320; 80329; 81003; 81015; 81025; 84443; 85025; 99285; G0480

== ENCOUNTER 2018-12-13 17:54 | Emergency (ER) | payer OTHER, MEDICAID, SELFPAY ==
[2018-12-13 18:04] VITALS: BP 119/79; PULSE 84; RESP 16; TEMP 36.3; O2SAT 99
--- NOTE | 2018-12-13 18:26 | ED.GENADULT ---
HPI - General Adult General Chief complaint: Dental/Oral Stated complaint: sore throat Time Seen by Provider: 12/13/18 18:26 Source: patient Mode of arrival: ambulatory Limitations: no limitations History of Present Illness HPI narrative: 28-year-old female otherwise healthy was seen in the walk-in clinic earlier today. Had a negative rapid strep. Was evaluated because of a sore throat. here because she wanted a 2nd opinion. Has a sore throat. No sinus congestion. Has had a cough. No rashes. No fevers. Has been taking sore throat lozenges. Related Data Home Medications Medication Instructions Recorded Confirmed prazosin 5 mg capsule 5 mg PO QPM 12/05/18 12/13/18 quetiapine 200 mg tablet 200 mg PO BEDTIME tab 12/05/18 12/13/18 quetiapine 50 mg tablet 50 mg PO QID tab 12/05/18 12/13/18 sertraline 100 mg tablet 200 mg PO DAILY 12/05/18 12/13/18 Previous Rx's Medication Instructions Recorded ibuprofen 800 mg tablet 800 mg PO TID PRN #90 tab 05/29/18 cyclobenzaprine 10 mg tablet 10 mg PO TID #90 tab 11/11/18 oxycodone-acetaminophen 5 mg-325 1 tab PO Q6H PRN #120 tab 12/09/18 mg tablet Allergies Allergy/AdvReac Type Severity Reaction Status Date / Time No Known Drug Allergies Allergy Verified 12/13/18 17:31 Review of Systems Constitutional Denies fever(s) and Denies headache(s) ENT Ears, Nose, Mouth, and Throat: Denies headache(s), Denies lip swelling, Denies mouth lesions, Reports sore throat and Denies throat swelling Respiratory Reports cough Gastrointestinal Gastrointestinal: Denies nausea and Denies vomiting Integumentary/Breasts Denies rash Neurologic Denies headache(s) Hematologic/Lymphatic Denies easy bleeding and Denies easy bruising Allergic/Immunologic Denies urticaria, Denies lip swelling, Denies seasonal rhinorrhea and Denies throat swelling [facility] Medical History Bipolar 1 disorder (Acute) ADHD (attention deficit hyperactivity disorder) (Chronic Unknown) Anxiety (Chronic Unknown) Depression (Chronic Unknown) Generalized headaches (Chronic Unknown) Hypertension (Chronic 2012) Migraines (Chronic Unknown) PTSD (post-traumatic stress disorder) (Chronic Unknown) Hx of suicide attempt (Resolved Unknown) Social History Smoking Status: Current every day smoker Tobacco: How many years used: 10 alcohol intake: never substance use type: does not use Exam Initial Vital Signs Initial Vital Signs: Vital Signs Temperature 97.3 F L 12/13/18 18:04 Pulse Rate 84 12/13/18 18:04 Respiratory Rate 16 12/13/18 18:04 Blood Pressure 119/79 12/13/18 18:04 Pulse Oximetry 99 12/13/18 18:04 Const General: cooperative, healthy appearing, comfortable, well developed, well groomed and No acute distress Orientation: alert, awake and oriented x3 HENMT Head: normal to inspection and normocephalic Ears: right TM abnormal (A bulging no erythema), left TM abnormal (Has a small rupture) and other Resp Effort & Inspection: normal respiratory effort Auscultation: clear to auscultation bilaterally Cardio Rate: regular rate Rhythm: regular rhythm Skin Lesions: no lesions Rashes: no rashes Neuro General: alert, awake and oriented x3 Cognition: normal cognition Speech: speech normal Extrem General: normal to inspection and capillary refill normal Course Vital Signs - 8 hr 12/13/18 18:04 Temperature 97.3 F L Pulse Rate 84 Respiratory Rate 16 Blood Pressure 119/79 Pulse Oximetry 99 Medical Decision Making Lab Data Lab results reviewed: Yes I reviewed the patient's lab results. Point of Care Testing Rapid Strep A Negative Point of care testing: Point of Care Testing Rapid Strep A Negative MDM Narrative Medical decision making narrative: Nontoxic appearing. No respiratory distress. Rapid strep is negative. The rest of her exam is not consistent with strep pharyngitis. She does have a small tympanic membrane rupture in the left ear drum which she states is not new for her. She states she has had it since she was a kid. Does have a bulging right tympanic membrane without erythema. No indication for antibiotics. Suspect viral URI. She was given return precautions and follow-up instructions. She expressed understanding and agreement with plan. Discharge Plan Departure Patient Disposition: Home Clinical Impression: Pharyngitis Qualifiers: Pharyngitis/tonsillitis etiology: unspecified etiology Qualified Code(s): J02.9 - Acute pharyngitis, unspecified Upper respiratory infection Qualifiers: URI type: unspecified URI Qualified Code(s): J06.9 - Acute upper respiratory infection, unspecified Discharge Date/Time: 12/13/18 19:10 Interventions: ED Discharge Assessment Last Done: 12/13/18 19:10 Instructions: DI for Viral Upper Respiratory Infection -- Adult Activity Restrictions/Additional Instructions: Would recommend that you contact your primary care doctor for a follow-up. I do recommend you start taking a decongestant such as Claritin or Zoë or Zyrtec. You can take Benadryl however this will be more sedating. Return to the emergency department for any new symptoms Prescriptions: No Action ibuprofen 800 mg tablet 800 mg PO TID PRN (Reason: pain) Qty: 90 RF: 2 cyclobenzaprine 10 mg tablet 10 mg PO TID Qty: 90 RF: 2 oxycodone-acetaminophen 5-325 mg tablet 1 tab PO Q6H PRN (Reason: pain) Qty: 120 RF: 0 prazosin 5 mg capsule 5 mg PO QPM RF: 0 sertraline [Zoloft] 100 mg tablet 200 mg PO DAILY RF: 0 quetiapine [Seroquel] 50 mg tablet 50 mg PO QID RF: 0 quetiapine [Seroquel] 200 mg tablet 200 mg PO BEDTIME RF: 0 Referrals: Nigel Arora MD [Primary Care Provider] -
--- NOTE | 2018-12-13 18:44 | PC.NURSE ---
Pt has had sore throat for 2 days. States hasn't eaten anything all day due to pain with swallowing. Went to walk in clinic and was given a steroid 1 hr prior arrival to ED and states it did not work. Strep negative. Had tonsillectomy as child due to ear infections. Denies fever, chills, N/V/D or any other symptoms.
== END 2018-12-13 19:10 | disposition home or self-care (01) ==
PROVIDERS: Emergency Provider Emergency Medicine; PCP Student in an Organized Health Care Education/Training Program
DX: J02.9 Acute pharyngitis, unspecified (principal); J06.9 Acute upper respiratory infection, unspecified
CPT/HCPCS: 87880; 99282

== ENCOUNTER 2018-12-14 23:44 | Emergency (ER) | payer OTHER, MEDICAID, SELFPAY ==
[2018-12-14 23:55] VITALS: BP 135/93; PULSE 67; RESP 16; TEMP 36.4; O2SAT 99; BMI 47.5
--- NOTE | 2018-12-15 | ED_ITS ---
HPI - General Adult General Chief complaint: Upper Respiratory Symptoms Stated complaint: bad sore throat cant swallow eat Time Seen by Provider: 12/14/18 23:46 Source: patient Mode of arrival: ambulatory Limitations: no limitations History of Present Illness HPI narrative: Patient is a 28-year-old female who I evaluated here in the emergency department on my last shift for a sore throat. She was seen in the walk-in clinic prior to that. Had a negative strep test during the walk-in clinic visit. Had a repeat negative strep test here in the emergency department. She did fluid behind her right ear and no exudates. She returns today for continued sore throat. More on the left. Related Data Home Medications Medication Instructions Recorded Confirmed prazosin 5 mg capsule 5 mg PO QPM 12/05/18 12/13/18 quetiapine 200 mg tablet 200 mg PO BEDTIME tab 12/05/18 12/13/18 quetiapine 50 mg tablet 50 mg PO QID tab 12/05/18 12/13/18 sertraline 100 mg tablet 200 mg PO DAILY 12/05/18 12/13/18 Previous Rx's Medication Instructions Recorded ibuprofen 800 mg tablet 800 mg PO TID PRN #90 tab 05/29/18 cyclobenzaprine 10 mg tablet 10 mg PO TID #90 tab 11/11/18 oxycodone-acetaminophen 5 mg-325 1 tab PO Q6H PRN #120 tab 12/09/18 mg tablet penicillin V potassium 500 mg PO BID 10 Days #20 tab 12/15/18 Allergies Allergy/AdvReac Type Severity Reaction Status Date / Time No Known Drug Allergies Allergy Verified 12/13/18 17:31 Review of Systems Constitutional Denies fever(s) ENT Ears, Nose, Mouth, and Throat: Denies facial pain and Reports sore throat Comments: Left ear pain Cardiovascular Denies chest pain and Denies dyspnea Respiratory Denies cough and Denies dyspnea Gastrointestinal Gastrointestinal: Denies abdominal pain, Denies nausea and Denies vomiting Integumentary/Breasts Denies rash Hematologic/Lymphatic Denies easy bleeding and Denies easy bruising Allergic/Immunologic Denies urticaria [facility] Medical History Bipolar 1 disorder (Acute) ADHD (attention deficit hyperactivity disorder) (Chronic Unknown) Anxiety (Chronic Unknown) Depression (Chronic Unknown) Generalized headaches (Chronic Unknown) Hypertension (Chronic 2012) Migraines (Chronic Unknown) PTSD (post-traumatic stress disorder) (Chronic Unknown) Hx of suicide attempt (Resolved Unknown) Surgical History Hx of section (Resolved Unknown) Hx of myringotomy (Resolved Unknown) Hx of tonsillectomy (Resolved 2003) Family History Father Age: 49 Hypertension Mental health problem Mother Age: 45 Cancer Grandmother Age: 77 Cancer Mental health problem Sister Age: 30 Palsy Social History Smoking Status: Current every day smoker Tobacco: How many years used: 10 alcohol intake: never substance use type: does not use Family History Father Age: 49 Hypertension Mental health problem Mother Age: 45 Cancer Grandmother Age: 77 Cancer Mental health problem Sister Age: 30 Palsy Social History Smoking Status: Current every day smoker Tobacco: How many years used: 10 alcohol intake: never substance use type: does not use Exam Initial Vital Signs Initial Vital Signs: Vital Signs Temperature 97.5 F L 12/14/18 23:55 Pulse Rate 67 12/14/18 23:55 Respiratory Rate 16 12/14/18 23:55 Blood Pressure 135/93 H 12/14/18 23:55 Pulse Oximetry 99 12/14/18 23:55 Const General: cooperative, well developed, well groomed and No acute distress Orientation: alert, awake and oriented x3 HENMT Head: normal to inspection and normocephalic Ears: TM normal on the right (Fluid behind the right tympanic membrane worse than yesterday) and TM normal on the left (Continues to have the small hole in the left tympanic membrane which is not) Throat: other (Left-sided pharyngeal exudates) Resp Effort & Inspection: normal respiratory effort Cardio Rate: regular rate Skin Lesions: no lesions Rashes: no rashes Neuro General: alert, awake and oriented x3 Extrem General: normal to inspection and capillary refill normal Course Vital Signs - 8 hr 12/14/18 23:55 Temperature 97.5 F L Pulse Rate 67 Respiratory Rate 16 Blood Pressure 135/93 H Pulse Oximetry 99 Medical Decision Making MDM Narrative Medical decision making narrative: Patient does have left-sided oropharyngeal exudate which she did not have yesterday. She is afebrile. No lymphadenopathy. Has worsening fluid behind the right tympanic membrane. Had a discussion with the patient regarding options. Plan will be to give her a dose of Decadron here in the emergency department to see if this does not improve her symptoms. Will hold on giving her antibiotics here in the ER however will send home a prescription for antibiotics. She was instructed that if her symptoms do not improve or worsen over the next 24-48 hours that she could start taking the antibiotics. No signs of peritonsillar abscess. Does have some swelling of the uvula. patient is not in any respiratory distress. she was given return precautions and follow-up instructions. She expressed understanding and agreement this plan Discharge Plan Departure Patient Disposition: Home Clinical Impression: Pharyngitis Instructions: Sore Throat Activity Restrictions/Additional Instructions: Hold on filling the antibiotics for the next 1-2 days however if your symptoms worsen or do not improve during this time then fill the prescription and start taking it as directed. Continue with the Tylenol and Motrin for fevers or body aches. You can also take a decongestant such as Claritin on a daily basis. Return to the emergency department for any new or worsening symptoms. Contact your primary care doctor for follow-up. Prescriptions: New penicillin V potassium 500 mg tablet 500 mg PO BID 10 Days Qty: 20 RF: 0 No Action ibuprofen 800 mg tablet 800 mg PO TID PRN (Reason: pain) Qty: 90 RF: 2 cyclobenzaprine 10 mg tablet 10 mg PO TID Qty: 90 RF: 2 oxycodone-acetaminophen 5-325 mg tablet 1 tab PO Q6H PRN (Reason: pain) Qty: 120 RF: 0 prazosin 5 mg capsule 5 mg PO QPM RF: 0 sertraline [Zoloft] 100 mg tablet 200 mg PO DAILY RF: 0 quetiapine [Seroquel] 50 mg tablet 50 mg PO QID RF: 0 quetiapine [Seroquel] 200 mg tablet 200 mg PO BEDTIME RF: 0 Referrals: Nigel Arora MD [Primary Care Provider] -
[2018-12-15] MEDS: DEXAMETHASONE 10 MG/ML VIAL PO (00:07)
== END 2018-12-15 00:24 | disposition home or self-care (01) ==
PROVIDERS: Emergency Provider Emergency Medicine; PCP Student in an Organized Health Care Education/Training Program
DX: J20.9 Acute bronchitis, unspecified (principal)
CPT/HCPCS: 99282; 99283; J1100

== ENCOUNTER 2019-02-09 20:07 | Emergency (ER) | payer OTHER, MEDICAID, SELFPAY ==
[2019-02-09 20:32] VITALS: BP 128/84; PULSE 103; RESP 18; TEMP 37; O2SAT 98
--- NOTE | 2019-02-09 20:39 | PC.NURSE ---
SALES PROJECT ENGINEER/SENIOR CLIMATE ADVISOR Note: RN veda and SHERI pal called for assistance. Patient got agitated and yelled at Nurses. fuck this i don't want those meds. Pt. started to pull off cardio leads and b/p cuff. Dr. Horvath talked w/Pt. Patient is still Angry and not wanting to compliant. Pt. now 1:1.
--- NOTE | 2019-02-09 20:43 | PC.NURSE ---
I attempted to give patient zofran and charcoal. Pt hit zofran out of my hand stating I'm not fucking taking that and then refused charcoal. Pt had phone in hand. Phone and belongings removed from room. Pt ripped of monitoring equipment and became agitated. Sitter and security at bedside. Provider aware and in to speak w/ patient. 1:1 sitter at door.
--- NOTE | 2019-02-09 20:45 | ED_ITS ---
HPI - Psych <Leandra Horvath DO - Last Filed: 02/11/19 00:09> General Chief Complaint: Psychiatric Symptoms Stated Complaint: OD Time Seen by Provider: 02/09/19 20:07 Source: patient and EMS Limitations: no limitations History of Present Illness HPI Narrative: The patient is a 28-year-old female well known to myself in this facility presenting with suicide attempt. She states that 10 minutes prior to her arrival she took 15 5 mg tablets of clonazepam--does not come in 5 mg possibly 0.5 mg. She states it was an attempt to hurt herself. She has had attempts before. Also she told the nurse that she may have taken some Seroquel. She does not want to go to mental health facility, she states that the pain neve r help her. MD complaint: suicidal ideation and feels depressed If self harm: admits thoughts of self harm Related Data Home Medications Medication Instructions Recorded Confirmed prazosin 5 mg capsule 5 mg PO QPM 12/05/18 02/10/19 quetiapine 200 mg tablet 200 mg PO BEDTIME tab 12/05/18 02/10/19 quetiapine 50 mg tablet 50 mg PO QID tab 12/05/18 02/10/19 sertraline 100 mg tablet 200 mg PO DAILY 12/05/18 02/10/19 lamotrigine 200 mg PO BEDTIME 02/10/19 02/10/19 propranolol 20 mg PO BID 02/10/19 02/10/19 Allergies Allergy/AdvReac Type Severity Reaction Status Date / Time No Known Drug Allergies Allergy Verified 12/24/18 14:29 Review of Systems <DO Nighat Hale Last Filed: 02/11/19 00:09> Review of Systems ROS Unobtainable: All systems reviewed & are unremarkable except as noted in HPI and below Constitutional Denies chills, Denies fever(s), Denies lethargy and Denies weakness Eyes Denies change in vision, Denies eye discharge, Denies irritation and Denies loss of vision ENT Ears, Nose, Mouth, and Throat: Denies change in voice, Denies neck pain and Denies sore throat Cardiovascular Denies chest pain, Denies irregular heart rhythm, Denies lightheadedness, Denies palpitations, Denies dyspnea, Denies dyspnea on exertion and Denies orthopnea Respiratory Denies cough, Denies dyspnea, Denies dyspnea on exertion and Denies wheezing Gastrointestinal Gastrointestinal: Denies abdominal pain, Denies change in bowel habits, Denies diarrhea, Denies nausea and Denies vomiting Genitourinary Denies hematuria, Denies flank pain, Denies urinary incontinence and Denies urinary urgency Musculoskeletal Denies neck pain Integumentary/Breasts Denies pruritus, Denies erythema, Denies rash and Denies wounds Neurologic Denies loss of vision and Denies weakness Psychiatric Reports system reviewed and no additional complaints, except as docu Endocrine Denies palpitations Allergic/Immunologic Denies wheezing PFSH <Leandra Horvath DO - Last Filed: 02/11/19 00:09> Medical History Bipolar 1 disorder (Acute) ADHD (attention deficit hyperactivity disorder) (Chronic Unknown) Anxiety (Chronic Unknown) Depression (Chronic Unknown) Generalized headaches (Chronic Unknown) Hypertension (Chronic 2012) Migraines (Chronic Unknown) PTSD (post-traumatic stress disorder) (Chronic Unknown) Hx of suicide attempt (Resolved Unknown) Surgical History Hx of section (Resolved Unknown) Hx of myringotomy (Resolved Unknown) Hx of tonsillectomy (Resolved 2004) Family History Father Age: 49 Hypertension Mental health problem Mother Age: 45 Cancer Grandmother Age: 77 Cancer Mental health problem Sister Age: 30 Palsy Social History Smoking Status: Current every day smoker Tobacco: How many years used: 10 alcohol intake: never substance use type: does not use Family History Father Age: 49 Hypertension Mental health problem Mother Age: 45 Cancer Grandmother Age: 77 Cancer Mental health problem Sister Age: 30 Palsy Social History Smoking Status: Current every day smoker Tobacco: How many years used: 10 alcohol intake: never substance use type: does not use Exam <Leandra Horvath DO - Last Filed: 02/11/19 00:09> Initial Vital Signs Initial Vital Signs: Vital Signs Temperature 98.6 F 02/09/19 20:32 Pulse Rate 103 H 02/09/19 20:32 Respiratory Rate 18 02/09/19 20:32 Blood Pressure 128/84 02/09/19 20:32 Pulse Oximetry 98 02/09/19 20:32 GENERAL: Calm, follows directions cooperative, good hygiene poor eye contact HEENT: Head atraumatic,EOMI, pupils reactive CARDIOVASCULAR: Regular rate and rhythm without murmurs, rubs or gallops. RESPIRATORY: Breath sounds equal bilaterally, no wheezes rales or rhonchi. ABDOMEN: Soft, nontender. Normoactive bowel sounds all 4 quadrants. No guarding or rebound. EXTREMITIES: Normal range of motion, no clubbing or edema. Neurovascularly intact NEUROLOGICAL: Alert and oriented x4.Normal gait and speech. Cranial nerves II through XII grossly intact. SKIN: Warm, dry, no laceration, no petechiae, no rashes or lesions. <Aleks Corral DO - Last Filed: 02/10/19 18:56> Initial Vital Signs Initial Vital Signs: Vital Signs Temperature 98.6 F 02/09/19 20:32 Pulse Rate 103 H 02/09/19 20:32 Respiratory Rate 18 02/09/19 20:32 Blood Pressure 128/84 02/09/19 20:32 Pulse Oximetry 98 02/09/19 20:32 Course <Leandra Horvath DO - Last Filed: 02/11/19 00:09> Orders Ordered: Discontinued Medications Charcoal (Actidose-Aqua) 50 gm PO NOW ONE Stop: 02/09/19 20:08 Last Admin: 02/09/19 20:33 Dose: Not Given Sodium Chloride (Normal Saline 0.9%) 1,000 mls @ 1,000 mls/hr IV BOLUS ONE Stop: 02/09/19 23:30 Last Infusion: 02/09/19 23:57 Dose: 0 mls/hr Admin: 02/09/19 22:38 Dose: 1,000 mls/hr Lorazepam (Ativan) 1 mg IM NOW ONE Stop: 02/10/19 12:56 Last Admin: 02/10/19 12:59 Dose: 1 mg Ondansetron HCl (Zofran Odt) 4 mg PO NOW ONE Stop: 02/09/19 20:35 Last Admin: 02/09/19 20:36 Dose: Not Given Reevaluation(s) Reevaluation #1: Patient ripped off all cardiac leads. Refusing charcoal refusing help. Now stating she did not take that many medications. She does not want help. Time: 20:45 Reevaluation #2: Patient in 4 points trying to get NG tube down. NG unsuccessful now right at 60 minute rogers. Patient actually has no symptoms of benzodiazepine overdose maintaining her airway alert and oriented still refusing any sort care. The chart will no longer indicated. Patient in 2 point restraints because she ripped off her leads. Patient need to have cardiac monitoring based on her ingestion. Time: 21:06 Vital Signs - 8 hr 02/10/19 13:02 02/10/19 13:04 Pulse Rate 68 74 Respiratory Rate 14 14 Blood Pressure 132/83 Blood Pressure [Left Arm] 132/83 Pulse Oximetry 99 99 <Aleks Corral DO - Last Filed: 02/10/19 18:56> Course Narrative: 07 - patient received in sign out from Dr. Horvath. I have performed my own history and physical. Patient has been seen and evaluated by the [facility] and has found placement at [facility] for psychiatric care Orders Ordered: Discontinued Medications Charcoal (Actidose-Aqua) 50 gm PO NOW ONE Stop: 02/09/19 20:08 Last Admin: 02/09/19 20:33 Dose: Not Given Sodium Chloride (Normal Saline 0.9%) 1,000 mls @ 1,000 mls/hr IV BOLUS ONE Stop: 02/09/19 23:30 Last Infusion: 02/09/19 23:57 Dose: 0 mls/hr Admin: 02/09/19 22:38 Dose: 1,000 mls/hr Lorazepam (Ativan) 1 mg IM NOW ONE Stop: 02/10/19 12:56 Last Admin: 02/10/19 12:59 Dose: 1 mg Ondansetron HCl (Zofran Odt) 4 mg PO NOW ONE Stop: 02/09/19 20:35 Last Admin: 02/09/19 20:36 Dose: Not Given Vital Signs - 8 hr 02/10/19 13:02 02/10/19 13:04 Pulse Rate 68 74 Respiratory Rate 14 14 Blood Pressure 132/83 Blood Pressure [Left Arm] 132/83 Pulse Oximetry 99 99 MDM - Psych <Leandra DO Alexandru - Last Filed: 02/11/19 00:09> Lab Data Attestation: I reviewed the patient's lab results. Result diagrams: 02/09/19 21:25 02/09/19 21:25 Lab Results 02/09/19 02/09/19 02/09/19 Range/Units 21:25 21:25 21:25 WBC 9.2 (4.5-11.0) X10^3/uL RBC 5.30 H (4.0-5.2) X10^6/uL Hgb 14.3 (12.0-16.0) g/dL Hct 42.6 (36-46) % MCV 80.4 (80-100) fL MCH 26.9 (26-34) PG MCHC 33.5 (30-36) % RDW 14.9 H (11.6-14.8) % Plt Count 339 (150-400) X10^3/uL Neut % (Auto) 72.3 (50-75) % Lymph % (Auto) 16.8 L (25-40) % [place]bers[place] % (Auto) 8.9 (3-14) % Eos % (Auto) 1.1 L (2-4) % Baso % (Auto) 0.9 (0-2) % Neut # (Auto) 6600 (0636-7897) /uL Lymph # (Auto) 1500 (6981-9596) /uL [place]bers[place] # (Auto) 800 (0-900) /uL Eos # (Auto) 100 (0-450) /uL Baso # (Auto) 100 (0-100) /uL Sodium 141 (137-145) mmol/L Potassium 3.6 (3.4-5.1) mmol/L Chloride 106 (98-107) mmol/L Carbon Dioxide 23 (22-32) mmol/L BUN 10 (7-17) mg/dL Creatinine 0.80 (0.52-1.04) mg/dL Estimated GFR > 60.0 (>60) mL/min BUN/Creatinine Ratio 12.5 (6-22) Glucose 96 (70-100) mg/dL Lactate 4.1 H* (0.7-2.1) mmol/L Calcium 9.9 (8.4-10.2) mg/dL Total Bilirubin 0.4 (0.2-1.3) mg/dL Conjugated Bilirubin 0.0 (0.0-0.3) md/dL Unconjugated Bilirubin 0.1 (0.0-1.1) mg/dL AST 25 (14-36) IU/L ALT 14 (9-52) IU/L Alkaline Phosphatase 74 (38-126) U/L Total Protein 8.1 (6.3-8.2) g/dL Albumin 4.6 (3.5-5.0) g/dL Globulin 3.5 (1.7-4.1) g/dL Albumin/Globulin Ratio 1.3 (1.0-2.8) Urine RBC (0-5/HPF) Urine WBC (0-5/HPF) Ur Squamous Epith Cells (0-5/HPF) Amorphous Sediment Urine Bacteria (None) Ur Culture Indicated? Urine Test (Negative) Salicylates < 1.0 (<20) mg/dL Urine Opiates Screen (Negative) Ur Oxycodone Screen (Negative) Urine Methadone Screen (Negative) Acetaminophen < 10 L (10-30) ug/mL Ur Barbiturates Screen (Negative) U Tricyclic Antidepress (Negative) Ur Phencyclidine Scrn (Negative) Ur Amphetamines Screen (Negative) U Methamphetamines Scrn (Negative) Ur MDMA Scrn (Ecstasy) (Negative) U Benzodiazepines Scrn (Negative) Urine Cocaine Screen (Negative) U Marijuana (THC) Screen (Negative) Ethyl Alcohol < 10 mg/dL 02/10/19 02/10/19 02/10/19 Range/Units 00:05 00:40 00:40 WBC (4.5-11.0) X10^3/uL RBC (4.0-5.2) X10^6/uL Hgb (12.0-16.0) g/dL Hct (36-46) % MCV (80-100) fL MCH (26-34) PG MCHC (30-36) % RDW (11.6-14.8) % Plt Count (150-400) X10^3/uL Neut % (Auto) (50-75) % Lymph % (Auto) (25-40) % Culberson % (Auto) (3-14) % Eos % (Auto) (2-4) % Baso % (Auto) (0-2) % Neut # (Auto) (6754-0710) /uL Lymph # (Auto) (5821-6191) /uL [place]berson # (Auto) (0-900) /uL Eos # (Auto) (0-450) /uL Baso # (Auto) (0-100) /uL Sodium (137-145) mmol/L Potassium (3.4-5.1) mmol/L Chloride (98-107) mmol/L Carbon Dioxide (22-32) mmol/L BUN (7-17) mg/dL Creatinine (0.52-1.04) mg/dL Estimated GFR (>60) mL/min BUN/Creatinine Ratio (6-22) Glucose (70-100) mg/dL Lactate 0.7 (0.7-2.1) mmol/L Calcium (8.4-10.2) mg/dL Total Bilirubin (0.2-1.3) mg/dL Conjugated Bilirubin (0.0-0.3) md/dL Unconjugated Bilirubin (0.0-1.1) mg/dL AST (14-36) IU/L ALT (9-52) IU/L Alkaline Phosphatase (38-126) U/L Total Protein (6.3-8.2) g/dL Albumin (3.5-5.0) g/dL Globulin (1.7-4.1) g/dL Albumin/Globulin Ratio (1.0-2.8) Urine RBC None seen (0-5/HPF) Urine WBC None seen (0-5/HPF) Ur Squamous Epith Cells 10-30 /hpf H D (0-5/HPF) Amorphous Sediment 3+ Urine Bacteria None seen (None) Ur Culture Indicated? Cult not indicated Urine Test (Negative) Salicylates (<20) mg/dL Urine Opiates Screen Negative (Negative) Ur Oxycodone Screen Negative (Negative) Urine Methadone Screen Negative (Negative) Acetaminophen (10-30) ug/mL Ur Barbiturates Screen Negative (Negative) U Tricyclic Antidepress Positive H (Negative) Ur Phencyclidine Scrn Negative (Negative) Ur Amphetamines Screen Negative (Negative) U Methamphetamines Scrn Negative (Negative) Ur MDMA Scrn (Ecstasy) Negative (Negative) U Benzodiazepines Scrn Positive H (Negative) Urine Cocaine Screen Negative (Negative) U Marijuana (THC) Screen Negative (Negative) Ethyl Alcohol mg/dL 02/10/19 Range/Units 00:40 WBC (4.5-11.0) X10^3/uL RBC (4.0-5.2) X10^6/uL Hgb (12.0-16.0) g/dL Hct (36-46) % MCV (80-100) fL MCH (26-34) PG MCHC (30-36) % RDW (11.6-14.8) % Plt Count (150-400) X10^3/uL Neut % (Auto) (50-75) % Lymph % (Auto) (25-40) % Culberson % (Auto) (3-14) % Eos % (Auto) (2-4) % Baso % (Auto) (0-2) % Neut # (Auto) (2481-8241) /uL Lymph # (Auto) (3541-8641) /uL [place] # (Auto) (0-900) /uL Eos # (Auto) (0-450) /uL Baso # (Auto) (0-100) /uL Sodium (137-145) mmol/L Potassium (3.4-5.1) mmol/L Chloride (98-107) mmol/L Carbon Dioxide (22-32) mmol/L BUN (7-17) mg/dL Creatinine (0.52-1.04) mg/dL Estimated GFR (>60) mL/min BUN/Creatinine Ratio (6-22) Glucose (70-100) mg/dL Lactate (0.7-2.1) mmol/L Calcium (8.4-10.2) mg/dL Total Bilirubin (0.2-1.3) mg/dL Conjugated Bilirubin (0.0-0.3) md/dL Unconjugated Bilirubin (0.0-1.1) mg/dL AST (14-36) IU/L ALT (9-52) IU/L Alkaline Phosphatase (38-126) U/L Total Protein (6.3-8.2) g/dL Albumin (3.5-5.0) g/dL Globulin (1.7-4.1) g/dL Albumin/Globulin Ratio (1.0-2.8) Urine RBC (0-5/HPF) Urine WBC (0-5/HPF) Ur Squamous Epith Cells (0-5/HPF) Amorphous Sediment Urine Bacteria (None) Ur Culture Indicated? Urine Test Negative (Negative) Salicylates (<20) mg/dL Urine Opiates Screen (Negative) Ur Oxycodone Screen (Negative) Urine Methadone Screen (Negative) Acetaminophen (10-30) ug/mL Ur Barbiturates Screen (Negative) U Tricyclic Antidepress (Negative) Ur Phencyclidine Scrn (Negative) Ur Amphetamines Screen (Negative) U Methamphetamines Scrn (Negative) Ur MDMA Scrn (Ecstasy) (Negative) U Benzodiazepines Scrn (Negative) Urine Cocaine Screen (Negative) U Marijuana (THC) Screen (Negative) Ethyl Alcohol mg/dL ECG Data Attestation: I personally reviewed and interpreted this ECG as follows: Prior ECG tracings: available for review Interpretation: sinus rhythm rate [address] changes NC interval 144 QRS 1 1 QTC 416. No R-wave in AVR. MDM Narrative Medical decision making narrative: Patient initially placed in room and put on desk monitor. His she is well within limits to received charcoal. As soon as desk monitor was placed she almost immediately ripped off the leads r efused an IV and blood draw. I had conversation with her of what would happen if she did not cooperate including an G-tube and restraints. She is not a candidate for any sort of chemical restraints because she is just took possibly significant amount of medication. She now states that she did take that much medication but she is not sure how much she took. She still is unwilling to cooperate. Therefore restraints were placed. NG attempt failed at which time she became out of window for charcoal but was not yet showing signs or symptoms of clonazepam or Seroquel overdose. At this time monitored her, she agreed to be cooperative. Restraints were slowly removed. Agreed to blood draw, an urine sample. Patient refusing care multiple suicide attempts in the past, at this time needs involuntary criteria. [facility] called. [address] [facility] here to evaluate Patient signed out to Dr. Corral at shift change for further disposition <Aleks Corral, DO - Last Filed: 02/10/19 18:56> Lab Data Lab Results 02/09/19 02/09/19 02/09/19 Range/Units 21:25 21:25 21:25 WBC 9.2 (4.5-11.0) X10^3/uL RBC 5.30 H (4.0-5.2) X10^6/uL Hgb 14.3 (12.0-16.0) g/dL Hct 42.6 (36-46) % MCV 80.4 (80-100) fL MCH 26.9 (26-34) PG MCHC 33.5 (30-36) % RDW 14.9 H (11.6-14.8) % Plt Count 339 (150-400) X10^3/uL Neut % (Auto) 72.3 (50-75) % Lymph % (Auto) 16.8 L (25-40) % Culberson % (Auto) 8.9 (3-14) % Eos % (Auto) 1.1 L (2-4) % Baso % (Auto) 0.9 (0-2) % Neut # (Auto) 6600 (4014-9572) /uL Lymph # (Auto) 1500 (1798-6157) /uL Culberson # (Auto) 800 (0-900) /uL Eos # (Auto) 100 (0-450) /uL Baso # (Auto) 100 (0-100) /uL Sodium 141 (137-145) mmol/L Potassium 3.6 (3.4-5.1) mmol/L Chloride 106 (98-107) mmol/L Carbon Dioxide 23 (22-32) mmol/L BUN 10 (7-17) mg/dL Creatinine 0.80 (0.52-1.04) mg/dL Estimated GFR > 60.0 (>60) mL/min BUN/Creatinine Ratio 12.5 (6-22) Glucose 96 (70-100) mg/dL Lactate 4.1 H* (0.7-2.1) mmol/L Calcium 9.9 (8.4-10.2) mg/dL Total Bilirubin 0.4 (0.2-1.3) mg/dL Conjugated Bilirubin 0.0 (0.0-0.3) md/dL Unconjugated Bilirubin 0.1 (0.0-1.1) mg/dL AST 25 (14-36) IU/L ALT 14 (9-52) IU/L Alkaline Phosphatase 74 (38-126) U/L Total Protein 8.1 (6.3-8.2) g/dL Albumin 4.6 (3.5-5.0) g/dL Globulin 3.5 (1.7-4.1) g/dL Albumin/Globulin Ratio 1.3 (1.0-2.8) Urine RBC (0-5/HPF) Urine WBC (0-5/HPF) Ur Squamous Epith Cells (0-5/HPF) Amorphous Sediment Urine Bacteria (None) Ur Culture Indicated? Urine Test (Negative) Salicylates < 1.0 (<20) mg/dL Urine Opiates Screen (Negative) Ur Oxycodone Screen (Negative) Urine Methadone Screen (Negative) Acetaminophen < 10 L (10-30) ug/mL Ur Barbiturates Screen (Negative) U Tricyclic Antidepress (Negative) Ur Phencyclidine Scrn (Negative) Ur Amphetamines Screen (Negative) U Methamphetamines Scrn (Negative) Ur MDMA Scrn (Ecstasy) (Negative) U Benzodiazepines Scrn (Negative) Urine Cocaine Screen (Negative) U Marijuana (THC) Screen (Negative) Ethyl Alcohol < 10 mg/dL 02/10/19 02/10/19 02/10/19 Range/Units 00:05 00:40 00:40 WBC (4.5-11.0) X10^3/uL RBC (4.0-5.2) X10^6/uL Hgb (12.0-16.0) g/dL Hct (36-46) % MCV (80-100) fL MCH (26-34) PG MCHC (30-36) % RDW (11.6-14.8) % Plt Count (150-400) X10^3/uL Neut % (Auto) (50-75) % Lymph % (Auto) (25-40) % Culberson % (Auto) (3-14) % Eos % (Auto) (2-4) % Baso % (Auto) (0-2) % Neut # (Auto) (2319-8367) /uL Lymph # (Auto) (9459-1751) /uL Culberson # (Auto) (0-900) /uL Eos # (Auto) (0-450) /uL Baso # (Auto) (0-100) /uL Sodium (137-145) mmol/L Potassium (3.4-5.1) mmol/L Chloride (98-107) mmol/L Carbon Dioxide (22-32) mmol/L BUN (7-17) mg/dL Creatinine (0.52-1.04) mg/dL Estimated GFR (>60) mL/min BUN/Creatinine Ratio (6-22) Glucose (70-100) mg/dL Lactate 0.7 (0.7-2.1) mmol/L Calcium (8.4-10.2) mg/dL Total Bilirubin (0.2-1.3) mg/dL Conjugated Bilirubin (0.0-0.3) md/dL Unconjugated Bilirubin (0.0-1.1) mg/dL AST (14-36) IU/L ALT (9-52) IU/L Alkaline Phosphatase (38-126) U/L Total Protein (6.3-8.2) g/dL Albumin (3.5-5.0) g/dL Globulin (1.7-4.1) g/dL Albumin/Globulin Ratio (1.0-2.8) Urine RBC None seen (0-5/HPF) Urine WBC None seen (0-5/HPF) Ur Squamous Epith Cells 10-30 /hpf H D (0-5/HPF) Amorphous Sediment 3+ Urine Bacteria None seen (None) Ur Culture Indicated? Cult not indicated Urine Test (Negative) Salicylates (<20) mg/dL Urine Opiates Screen Negative (Negative) Ur Oxycodone Screen Negative (Negative) Urine Methadone Screen Negative (Negative) Acetaminophen (10-30) ug/mL Ur Barbiturates Screen Negative (Negative) U Tricyclic Antidepress Positive H (Negative) Ur Phencyclidine Scrn Negative (Negative) Ur Amphetamines Screen Negative (Negative) U Methamphetamines Scrn Negative (Negative) Ur MDMA Scrn (Ecstasy) Negative (Negative) U Benzodiazepines Scrn Positive H (Negative) Urine Cocaine Screen Negative (Negative) U Marijuana (THC) Screen Negative (Negative) Ethyl Alcohol mg/dL 02/10/19 Range/Units 00:40 WBC (4.5-11.0) X10^3/uL RBC (4.0-5.2) X10^6/uL Hgb (12.0-16.0) g/dL Hct (36-46) % MCV (80-100) fL MCH (26-34) PG MCHC (30-36) % RDW (11.6-14.8) % Plt Count (150-400) X10^3/uL Neut % (Auto) (50-75) % Lymph % (Auto) (25-40) % Culberson % (Auto) (3-14) % Eos % (Auto) (2-4) % Baso % (Auto) (0-2) % Neut # (Auto) (1279-9564) /uL Lymph # (Auto) (5371-8768) /uL Culberson # (Auto) (0-900) /uL Eos # (Auto) (0-450) /uL Baso # (Auto) (0-100) /uL Sodium (137-145) mmol/L Potassium (3.4-5.1) mmol/L Chloride (98-107) mmol/L Carbon Dioxide (22-32) mmol/L BUN (7-17) mg/dL Creatinine (0.52-1.04) mg/dL Estimated GFR (>60) mL/min BUN/Creatinine Ratio (6-22) Glucose (70-100) mg/dL Lactate (0.7-2.1) mmol/L Calcium (8.4-10.2) mg/dL Total Bilirubin (0.2-1.3) mg/dL Conjugated Bilirubin (0.0-0.3) md/dL Unconjugated Bilirubin (0.0-1.1) mg/dL AST (14-36) IU/L ALT (9-52) IU/L Alkaline Phosphatase (38-126) U/L Total Protein (6.3-8.2) g/dL Albumin (3.5-5.0) g/dL Globulin (1.7-4.1) g/dL Albumin/Globulin Ratio (1.0-2.8) Urine RBC (0-5/HPF) Urine WBC (0-5/HPF) Ur Squamous Epith Cells (0-5/HPF) Amorphous Sediment Urine Bacteria (None) Ur Culture Indicated? Urine Test Negative (Negative) Salicylates (<20) mg/dL Urine Opiates Screen (Negative) Ur Oxycodone Screen (Negative) Urine Methadone Screen (Negative) Acetaminophen (10-30) ug/mL Ur Barbiturates Screen (Negative) U Tricyclic Antidepress (Negative) Ur Phencyclidine Scrn (Negative) Ur Amphetamines Screen (Negative) U Methamphetamines Scrn (Negative) Ur MDMA Scrn (Ecstasy) (Negative) U Benzodiazepines Scrn (Negative) Urine Cocaine Screen (Negative) U Marijuana (THC) Screen (Negative) Ethyl Alcohol mg/dL Discharge Plan Departure Patient Disposition: Xfer [facility] Clinical Impression: Intentional overdose of drug in tablet form Discharge Date/Time: 02/10/19 13:09 Interventions: ED Discharge Assessment Last Done: 02/10/19 13:04 Referrals: Nigel Arora MD [Primary Care Provider] -
--- NOTE | 2019-02-09 20:49 | PC.NURSE ---
DIRECTOR OF MANAGED SERVICES/beverage host Note: Pt. non compliant. Refusing care. Patient laying in bed and is quiet.
--- NOTE | 2019-02-09 21:18 | PC.NURSE ---
Pt gave verbal permission to release medical information to sister listed as emergency contact.
[2019-02-09 21:42] LABS: Add Manual Diff / Slide Review NO; Basophils Absolute Auto 100 /uL (0-100); Basophils Percent Auto 0.9 % (0-2); Eosinophils Absolute Auto 100 /uL (0-450); Eosinophils Percent Auto 1.1 % (2-4); Hematocrit 42.6 % (36-46); Hemoglobin 14.3 g/dL (12.0-16.0); Lymphocytes Absolute Auto 1500 /uL (1100-4500); Lymphocytes Percent Auto 16.8 % (25-40); Mean Corpuscular HGB Conc 33.5 % (30-36); Mean Corpuscular Hemoglobin 26.9 PG (26-34); Mean Corpuscular Volume 80.4 fL (80-100); Monocytes Absolute Auto 800 /uL (0-900); Monocytes Percent Auto 8.9 % (3-14); Neutrophils Absolute Auto 6600 /uL (1500-7000); Neutrophils Percent Auto 72.3 % (50-75); Platelet Count 339 X10^3/uL (150-400); Red Cell Distribution Width 14.9 % (11.6-14.8); White Blood Cell Count 9.2 X10^3/uL (4.5-11.0)
[2019-02-09 21:51] VITALS: BP 129/91; PULSE 92; RESP 23; O2SAT 94
[2019-02-09 21:58] LABS: Lactate (Lactic Acid) 4.1 mmol/L (0.7-2.1)
--- NOTE | 2019-02-09 22:09 | PC.NURSE ---
2049 restraints initiated, 2054 attempted to insert NG tube. Pt sitting up 45degrees, suction at bedside, Pt vomited and refused to swallow, Dr Horvath, Luana Ribeiro, Jessica hyde and this RN at bedside assisting in this tube insertion. Pt vomited, suction provided. Pt stated during insertion that she would cooperate. Timing was reevaluated and Charcoal DC'd by Dr Horvath. Pt's leg restraints were removed, upper extremities remained locked. Pt stated to this RN, she took 2 clonazepam tonight, and a few seroquel this morning. Pt states she just wants to kill herself, she has been self isolating, and spiraling out of control the last 3 months.
[2019-02-09 22:15] VITALS: BP 131/88; PULSE 92; RESP 20; O2SAT 93
[2019-02-09 22:18] LABS: Acetaminophen < 10 ug/mL (10-30); Alanine Aminotransferase 14 IU/L (9-52); Albumin 4.6 g/dL (3.5-5.0); Albumin Globulin Ratio 1.3 (1.0-2.8); Alkaline Phosphatase 74 U/L (38-126); Aspartate Aminotransferase 25 IU/L (14-36); BUN Creatinine Ratio 12.5 (6-22); Bilirubin Total 0.4 mg/dL (0.2-1.3); Bilirubin Unconjugated 0.1 mg/dL (0.0-1.1); Blood Urea Nitrogen 10 mg/dL (7-17); Calcium 9.9 mg/dL (8.4-10.2); Carbon Dioxide 23 mmol/L (22-32); Chloride 106 mmol/L (98-107); Estimated Glomerular Filt Rate > 60.0 mL/min (>60); Ethanol (ETOH) < 10 mg/dL; Globulin 3.5 g/dL (1.7-4.1); Glucose 96 mg/dL (70-100); HEMOLYSIS < 15 (0-50); Potassium 3.6 mmol/L (3.4-5.1); Salicylate < 1.0 mg/dL (<20); Sodium 141 mmol/L (137-145); Total Protein 8.1 g/dL (6.3-8.2)
--- NOTE | 2019-02-09 22:28 | PC.NURSE ---
Poison control notified
[2019-02-09 22:30] VITALS: BP 119/106; PULSE 77; RESP 20; O2SAT 94
[2019-02-09] MEDS: SODIUM CHLORIDE 0.9% 1,000 ML 1000 ML IV (22:38)
[2019-02-09 23:01] VITALS: BP 125/96; PULSE 79; RESP 19; O2SAT 96
[2019-02-09 23:31] VITALS: BP 138/93; PULSE 84; RESP 17; O2SAT 95
[2019-02-09 23:38] LABS: Reflexed Lactate in 2 Hours Y
[2019-02-10] VITALS (16 sets, daily range): BP systolic 104–132; BP diastolic 54–91; PULSE 61–103; RESP 13–21; O2SAT 92–100
[2019-02-10 00:23] LABS: Lactate 2HR (Lactic Acid Rflx) 0.7 mmol/L (0.7-2.1)
[2019-02-10 01:13] LABS: Urine Amphetamines Negative (Negative); Urine Barbiturates Negative (Negative); Urine Benzodiazepines Positive (Negative); Urine Cocaine Negative (Negative); Urine MDMA Negative (Negative); Urine Methadone Negative (Negative); Urine Methamphetamines Negative (Negative); Urine Morphine/Opi cutoff 2000 Negative (Negative); Urine Oxycodone Negative (Negative); Urine Phencyclidine Negative (Negative); Urine Tetrahydrocannabinol Negative (Negative); Urine Tricyclic Antidepressant Positive (Negative)
[2019-02-10 01:19] LABS: Bacteria Urine None Seen; RBC Urine None Seen (0-5/HPF); WBC Urine None Seen (0-5/HPF)
[2019-02-10 01:23] LABS: Pregnancy Test Urine Negative (Negative)
[2019-02-10 01:50] LABS: Amorphous Sediment Urine 3+; Squamous Epithelial Cell Urine 10-30 /HPF (0-5/HPF)
[2019-02-10 01:51] LABS: Culture Indicated Urine Cult Not Indicated
--- NOTE | 2019-02-10 04:45 | PC.NURSE ---
AUTOMOTIVE SERVICE ADVISOR note [id number] patient is mumbling words in her sleep occasionally.
--- NOTE | 2019-02-10 06:41 | PC.NURSE ---
WOODEN BOAT BUILDER note patient in bed, quietly mumbling to herself in her sleep. Patient is snoring. Moving around in bed. Has complained about the pants given to her falling down in her sleep.
--- NOTE | 2019-02-10 07:24 | PC.NURSE ---
CD[facility] now at bedside
--- NOTE | 2019-02-10 07:44 | PC.NURSE ---
Breakfast tray given to patient
--- NOTE | 2019-02-10 07:56 | PC.NURSE ---
Patient asked if we had contacted her sister to let her know she was here and we informed her that yes her sister is aware that she is here in ER
--- NOTE | 2019-02-10 08:28 | PC.NURSE ---
chavop in department working on patient placement. possible to telehealth dorys larry.
--- NOTE | 2019-02-10 08:47 | PC.NURSE ---
pt ate breakfast
--- NOTE | 2019-02-10 09:49 | PC.NURSE ---
Addendum entered by Haylee Ramirez CNA 02/10/19 09:55: [facility] also informed to relay updates to patient's sister. Original Note: Patient received a phone call from her sister, Lisa. Patient is now asking staff for her sister to be updated with any changes or decisions.RN notified. Apple juice given. Pt now resting quietly in bed. CM
--- NOTE | 2019-02-10 10:40 | PC.NURSE ---
Pt was agitated when informed she would be going to [facility]. Pt stated I'm not fdian going. They won't do anything to help me. Physician spoke with patient and informed her that was her best option. Pt spoke with sister on the phone and seems to be calm now. Pt got up and used to restroom. Juice and warm blanket given. PT now resting in bed quietly. CM
--- NOTE | 2019-02-10 11:56 | PC.NURSE ---
Pt resting with eyes closed. She discussed with Dr. Corral that she was upset about going to [facility] and agrees to have a dose of Ativan IM. Woke patient up and asked if she would like the Ativan now or just prior to transfer. She states she would like it just prior to transfer and closed her eyes again. Sitter remains with patient for one to one observation.
--- NOTE | 2019-02-10 12:31 | PC.NURSE ---
Lunch tray given to patient. Pt states that she would like to sleep now and will eat later. Tray left for pt on side table. CM
[2019-02-10] MEDS: LORazepam 2 MG/ML INJ 1 MG IM (12:59)
== END 2019-02-10 13:09 ==
PROVIDERS: Emergency Medicine; Emergency Provider Emergency Medicine; PCP Student in an Organized Health Care Education/Training Program
DX: T42.4X2A Poisoning by benzodiazepines, intentional self-harm, initial encounter (principal)
CPT/HCPCS: 36591; 80053; 80076; 80305; 80320; 80329; 81015; 81025; 83605; 85025; 93005; 96360; 96372; 99285; G0480; J2060

== ENCOUNTER 2019-02-27 21:09 | Emergency (ER) | payer OTHER, MEDICAID, SELFPAY ==
[2019-02-27 21:19] VITALS: BP 146/97; PULSE 75; RESP 18; TEMP 36.7; O2SAT 96; BMI 46.0
--- NOTE | 2019-02-27 21:52 | ED.SKABFB ---
HPI - Skin/Abscess/Foreign Bdy General Chief complaint: Skin/Abscess/Foreign Body Stated complaint: INFECTION WOUND ON CHIN Time Seen by Provider: 02/27/19 21:23 Source: patient Mode of arrival: ambulatory Limitations: no limitations History of Present Illness HPI narrative: Patient is a 28-year-old female here for evaluation of an infection on her right side of her jaw. Patient states that she noted the symptoms 2 days ago. She states she tried to ?drain it ?at home. 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 Denies any dental pain. No sore throat. She does feel that the right side of her face is somewhat swollen. Has not tried any medications for the symptoms at home Related Data Home Medications Medication Instructions Recorded Confirmed prazosin 5 mg capsule 5 mg PO QPM 12/05/18 02/25/19 lamotrigine 200 mg PO BEDTIME 02/10/19 02/25/19 atenolol 100 mg tablet 100 mg PO DAILY 02/26/19 lithium carbonate 300 mg capsule 300 mg PO BEDTIME cap 02/26/19 melatonin 10 mg tablet 10 mg PO BEDTIME PRN 02/26/19 mirtazapine 15 mg tablet 45 mg PO BEDTIME tab 02/26/19 olanzapine 5 mg tablet 5 mg PO BEDTIME 02/26/19 sertraline 100 mg tablet 100 mg PO DAILY 02/26/19 Previous Rx's Medication Instructions Recorded pregabalin 100 mg capsule 100 mg PO TID #90 cap 02/25/19 doxycycline hyclate 100 mg PO BID 7 Days #14 tab 02/27/19 Allergies Allergy/AdvReac Type Severity Reaction Status Date / Time No Known Drug Allergies Allergy Verified 02/27/19 21:23 Review of Systems Constitutional Denies fever(s) ENT Comments: Swelling to the right side of the face and infection right side of the face Cardiovascular Denies dyspnea Respiratory Denies dyspnea Musculoskeletal Denies myalgias and Denies arthralgias Integumentary/Breasts Comments: Infection of the right side of the jaw Hematologic/Lymphatic Denies easy bleeding and Denies easy bruising [facility] Medical History Bipolar 1 disorder (Acute) ADHD (attention deficit hyperactivity disorder) (Chronic Unknown) Anxiety (Chronic Unknown) Depression (Chronic Unknown) Generalized headaches (Chronic Unknown) Hypertension (Chronic 2012) Migraines (Chronic Unknown) PTSD (post-traumatic stress disorder) (Chronic Unknown) Hx of suicide attempt (Resolved Unknown) Social History Smoking Status: Current every day smoker Tobacco: How many years used: 10 alcohol intake: never substance use type: does not use Exam Initial Vital Signs Initial Vital Signs: Vital Signs Temperature 98.1 F 02/27/19 21:19 Pulse Rate 75 02/27/19 21:19 Respiratory Rate 18 02/27/19 21:19 Blood Pressure 146/97 H 02/27/19 21:19 Pulse Oximetry 96 02/27/19 21:19 Const General: cooperative, comfortable and well developed Orientation: alert and awake HENMS Head: normal to inspection and normocephalic Neck Lymphatic: lymphadenopathy (The right anterior cervical) Skin Other: Patient with a small area of redness on the right side of her jaw just lateral to midline. Does have a small area of excoriation at the center of this consistent with her trying to drain the area at home. Extrem General: normal to inspection and capillary refill normal Course Orders Ordered: Discontinued Medications Doxycycline Hyclate (Vibramycin) 100 mg PO NOW ONE Stop: 02/27/19 21:59 Last Admin: 02/27/19 22:12 Dose: 100 mg Vital Signs - 8 hr 02/27/19 21:19 02/27/19 22:13 Temperature 98.1 F 98.2 F Pulse Rate 75 70 Respiratory Rate 18 20 Blood Pressure 146/97 H 139/81 Pulse Oximetry 96 96 MDM - Skin/Abscess/Foreign Bdy MDM Narrative Medical decision making narrative: Patient with some redness of the right lower jaw with lymphadenopathy. Her teeth look unremarkable. I have low suspicion this is a dental abscess. There is no definitive abscess seen on the exam today. Patient was given 1st dose of antibiotics here in the emergency department prescription for the remainder. She was given return precautions and follow-up instructions. She expressed understanding and agreement with plan. Discharge Plan Departure Patient Disposition: Home Clinical Impression: Bipolar II disorder Cellulitis Qualifiers: Site of cellulitis: face Qualified Code(s): L03.211 - Cellulitis of face Discharge Date/Time: 02/27/19 22:14 Interventions: ED Discharge Assessment Last Done: 02/27/19 22:13 Instructions: DI for Cellulitis -- Adult Activity Restrictions/Additional Instructions: Take the antibiotics as directed. Contact your primary provider on Saturday for a follow-up. Return to the emergency department for any new or worsening symptoms Prescriptions: New doxycycline hyclate 100 mg tablet 100 mg PO BID 7 Days Qty: 14 RF: 0 No Action sertraline 100 mg tablet 100 mg PO DAILY RF: 0 lithium carbonate 300 mg capsule 300 mg PO BEDTIME RF: 0 atenolol 100 mg tablet 100 mg PO DAILY RF: 0 olanzapine 5 mg tablet 5 mg PO BEDTIME RF: 0 mirtazapine 15 mg tablet 45 mg PO BEDTIME RF: 0 melatonin 10 mg tablet 10 mg PO BEDTIME PRNRF: 0 pregabalin 100 mg capsule 100 mg PO TID Qty: 90 RF: 0 prazosin 5 mg capsule 5 mg PO QPM RF: 0 lamotrigine 200 mg tablet 200 mg PO BEDTIME RF: 0 Referrals: Nigel Arora MD [Primary Care Provider] -
[2019-02-27] MEDS: DOXYCYCLINE HYCLATE 100 MG TABLET PO (22:12)
[2019-02-27 22:13] VITALS: BP 139/81; PULSE 70; RESP 20; TEMP 36.8; O2SAT 96
== END 2019-02-27 22:14 | disposition home or self-care (01) ==
PROVIDERS: Emergency Provider Emergency Medicine; PCP Student in an Organized Health Care Education/Training Program
DX: L03.211 Cellulitis of face (principal); F31.81 Bipolar II disorder
CPT/HCPCS: 99282; 99283

== ENCOUNTER 2019-03-10 23:05 | Observation (INO) | payer OTHER, MEDICAID, SELFPAY ==
[2019-03-10 23:05] VITALS: BMI 45.7
[2019-03-10 23:23] VITALS: BP 127/74; PULSE 78; RESP 19
--- NOTE | 2019-03-10 23:23 | ED.OVERDOSE ---
HPI - Overdose General Chief Complaint: Toxicology Problem Stated Complaint: claiming she overdosed Time Seen by Provider: 03/10/19 23:16 Source: patient Mode of arrival: ambulatory Limitations: no limitations History of Present Illness HPI Narrative: 28-year-old female who arrived by private vehicle stating that at 0850 this evening she took 100x 50 mg extended release Seroquel. Denies any other toxic ingestions. She stated that she took them in an effort to hurt herself. She stated these were her medication. She denies any other toxic ingestions denies any alcohol. Came to the emergency department on her own. She states that she has had a lot of stressors at home. Later this month is the 1 year anniversary of her grandmother dying she also reported other relationship issues with friends. Patient denied any symptoms stated that here in the emergency department she felt safe and was not suicidal however she states she did not feel comfortable going home. She stated that if she was at home she is very concerned that she would act again on thoughts of hurting herself. Related Data Home Medications Medication Instructions Recorded Confirmed prazosin 5 mg capsule 5 mg PO QPM 12/05/18 03/03/19 lamotrigine 200 mg PO BEDTIME 02/10/19 03/03/19 atenolol 100 mg tablet 100 mg PO DAILY 02/26/19 03/03/19 lithium carbonate 300 mg capsule 300 mg PO BEDTIME cap 02/26/19 03/03/19 melatonin 10 mg tablet 10 mg PO BEDTIME PRN 02/26/19 03/03/19 mirtazapine 15 mg tablet 45 mg PO BEDTIME tab 02/26/19 03/03/19 olanzapine 5 mg tablet 5 mg PO BEDTIME 02/26/19 03/03/19 sertraline 100 mg tablet 100 mg PO DAILY 02/26/19 03/03/19 Previous Rx's Medication Instructions Recorded pregabalin 100 mg capsule 100 mg PO TID #90 cap 02/25/19 nicotine (polacrilex) 2 mg gum 2 mg BUCCAL Q2H #100 each 03/03/19 sumatriptan 50 mg tablet See Rx Instructions PO .COMPLEX 03/09/19 #20 tab Allergies Allergy/AdvReac Type Severity Reaction Status Date / Time No Known Drug Allergies Allergy Verified 03/03/19 13:45 Review of Systems Constitutional Denies headache(s) Comments: Type. Eyes Denies blurry vision and Denies diplopia ENT Ears, Nose, Mouth, and Throat: Denies vertigo, Denies dizziness, Denies headache(s) and Denies disequilibrium Cardiovascular Denies chest pain and Denies dyspnea Respiratory Denies dyspnea Gastrointestinal Gastrointestinal: Denies abdominal pain, Denies nausea and Denies vomiting Genitourinary Denies dysuria Musculoskeletal Denies myalgias and Denies arthralgias Integumentary/Breasts Denies rash Neurologic Denies vertigo, Denies dizziness, Denies headache(s) and Denies disequilibrium Psychiatric Denies anxiety, Reports depression, Reports hopelessness, Denies homicidal ideation and Reports suicidal ideation Hematologic/Lymphatic Denies easy bleeding and Denies easy bruising Allergic/Immunologic Denies urticaria [facility] Medical History Bipolar 1 disorder (Acute) ADHD (attention deficit hyperactivity disorder) (Chronic Unknown) Anxiety (Chronic Unknown) Depression (Chronic Unknown) Generalized headaches (Chronic Unknown) Hypertension (Chronic 2012) Migraines (Chronic Unknown) PTSD (post-traumatic stress disorder) (Chronic Unknown) Hx of suicide attempt (Resolved Unknown) Surgical History Hx of section (Resolved Unknown) Hx of myringotomy (Resolved Unknown) Hx of tonsillectomy (Resolved 2004) Family History Father Age: 49 Hypertension Mental health problem Mother Age: 45 Cancer Grandmother Age: 77 Cancer Mental health problem Sister Age: 30 Palsy Social History Smoking Status: Current every day smoker Tobacco: How many years used: 10 alcohol intake: never substance use type: does not use Family History Father Age: 49 Hypertension Mental health problem Mother Age: 45 Cancer Grandmother Age: 77 Cancer Mental health problem Sister Age: 30 Palsy Social History Smoking Status: Current every day smoker Tobacco: How many years used: 10 alcohol intake: never substance use type: does not use Exam Initial Vital Signs Initial Vital Signs: Vital Signs Pulse Rate 78 03/10/19 23:23 Respiratory Rate 19 03/10/19 23:23 Blood Pressure 127/74 03/10/19 23:23 Const General: cooperative, comfortable, well developed, well groomed and No acute distress Orientation: alert, awake and oriented x3 HENMT Head: normal to inspection and normocephalic Resp Effort & Inspection: normal respiratory effort Auscultation: clear to auscultation bilaterally Cardio Rate: regular rate Rhythm: regular rhythm Pulses: radial pulses present GI Inspection: non-distended Palpation: soft Skin Lesions: no lesions Rashes: no rashes Neuro General: alert, awake and oriented x3 Cognition: normal cognition Speech: other (Slurred speech) Extrem General: normal to inspection and capillary refill normal Psych Appearance: grossly normal and well kempt Speech and Movement: not agitated, speech clear and speech not pressured Mood: dysthymic mood Affect: sad, No anxious affect and No hostile Thought Content: suicidality Course Orders Ordered: ED Orders 03/10/19 23:17 Urine Drug Screen, Rapid Stat 03/10/19 23:18 EKG-12 Lead Stat 03/10/19 23:25 Acetaminophen Stat Complete Blood Count AUTO DIFF Stat Comprehensive Metabolic Panel Stat Ethanol (ETOH) Stat Ketones (Beta-Hydroxybutyrate) Stat Lactate (Lactic Acid) Stat Lipase Stat Test Serum,Qual Stat Thyroid Stimulating Hormone Stat Vital Signs - 8 hr 03/10/19 23:23 03/11/19 00:02 03/11/19 00:08 Temperature 97.6 F Pulse Rate 78 80 Respiratory Rate 19 13 Blood Pressure [Right Arm] 127/74 113/64 Pulse Oximetry 98 MDM - Overdose Lab Data Attestation: I reviewed the patient's lab results. Result diagrams: 03/10/19 23:25 03/10/19 23:25 Lab Results 03/10/19 03/10/19 03/10/19 Range/Units 23:25 23:25 23:25 WBC 8.5 (4.5-11.0) X10^3/uL RBC 4.81 (4.0-5.2) X10^6/uL Hgb 12.4 (12.0-16.0) g/dL Hct 38.8 (36-46) % MCV 80.8 (80-100) fL MCH 25.9 L (26-34) PG MCHC 32.0 (30-36) % RDW 14.7 (11.6-14.8) % Plt Count 295 (150-400) X10^3/uL Neut % (Auto) 57.6 (50-75) % Lymph % (Auto) 31.6 (25-40) % Angelina % (Auto) 6.1 (3-14) % Eos % (Auto) 4.1 H (2-4) % Baso % (Auto) 0.6 (0-2) % Neut # (Auto) 4900 (6056-6255) /uL Lymph # (Auto) 2700 (0654-2722) /uL Angelina # (Auto) 500 (0-900) /uL Eos # (Auto) 300 (0-450) /uL Baso # (Auto) 100 (0-100) /uL Sodium 145 (137-145) mmol/L Potassium 3.8 (3.4-5.1) mmol/L Chloride 112 H (98-107) mmol/L Carbon Dioxide 24 (22-32) mmol/L BUN 10 (7-17) mg/dL Creatinine 0.60 (0.52-1.04) mg/dL Estimated GFR > 60.0 (>60) mL/min BUN/Creatinine Ratio 16.7 (6-22) Glucose 113 H (70-100) mg/dL Lactate (0.7-2.1) mmol/L Calcium 8.9 (8.4-10.2) mg/dL Total Bilirubin 0.2 (0.2-1.3) mg/dL AST 26 (14-36) IU/L ALT 21 (9-52) IU/L Alkaline Phosphatase 58 (38-126) U/L Total Protein 6.9 (6.3-8.2) g/dL Albumin 4.0 (3.5-5.0) g/dL Globulin 2.9 (1.7-4.1) g/dL Albumin/Globulin Ratio 1.4 (1.0-2.8) Lipase 62 (23-300) U/L TSH (0.47-4.68) uIU/mL Serum , Qual (Negative) Acetaminophen < 10 L (10-30) ug/mL Ethyl Alcohol < 10 mg/dL Ketones 0.14 (<0.27) mmol/L 03/10/19 03/10/19 03/10/19 Range/Units 23:25 23:25 23:25 WBC (4.5-11.0) X10^3/uL RBC (4.0-5.2) X10^6/uL Hgb (12.0-16.0) g/dL Hct (36-46) % MCV (80-100) fL MCH (26-34) PG MCHC (30-36) % RDW (11.6-14.8) % Plt Count (150-400) X10^3/uL Neut % (Auto) (50-75) % Lymph % (Auto) (25-40) % Angelina % (Auto) (3-14) % Eos % (Auto) (2-4) % Baso % (Auto) (0-2) % Neut # (Auto) (0987-1864) /uL Lymph # (Auto) (7813-8642) /uL Angelina # (Auto) (0-900) /uL Eos # (Auto) (0-450) /uL Baso # (Auto) (0-100) /uL Sodium (137-145) mmol/L Potassium (3.4-5.1) mmol/L Chloride (98-107) mmol/L Carbon Dioxide (22-32) mmol/L BUN (7-17) mg/dL Creatinine (0.52-1.04) mg/dL Estimated GFR (>60) mL/min BUN/Creatinine Ratio (6-22) Glucose (70-100) mg/dL Lactate 1.5 (0.7-2.1) mmol/L Calcium (8.4-10.2) mg/dL Total Bilirubin (0.2-1.3) mg/dL AST (14-36) IU/L ALT (9-52) IU/L Alkaline Phosphatase (38-126) U/L Total Protein (6.3-8.2) g/dL Albumin (3.5-5.0) g/dL Globulin (1.7-4.1) g/dL Albumin/Globulin Ratio (1.0-2.8) Lipase (23-300) U/L TSH 8.69 H (0.47-4.68) uIU/mL Serum , Qual Negative (Negative) Acetaminophen (10-30) ug/mL Ethyl Alcohol mg/dL Ketones (<0.27) mmol/L ECG Data Attestation: I personally reviewed and interpreted this ECG as follows: Prior ECG tracings: not available for review Interpretation: Sinus rhythm Ventricular rate is 79 Normal axis Normal QRS Normal QTC Nonspecific ST T wave changes MDM Narrative Medical decision making narrative: Discussed the case with poison Control. Patient's total ingestion is 5000 mg of extended release Seroquel. Was control states this is a moderate to severe ingestion. Patient is somnolent however is arousable and maintaining airway. Is not tachycardic. Not hypotensive. Alcohol Tylenol and aspirin are negative. There is no other signs of toxic ingestion. Poison Control recommended at least a 12 hour observation given the fact that these were extended release Seroquel. Given the potential like the time the patient would need to be observed contacted [employer] Brian the night hospitalist will admit for further evaluation and treatment and disposition. Discussed admission with the patient who expressed understanding and agreement. UDS pending at time of admission. Discharge Plan Departure Patient Disposition: Admitted as Observation Clinical Impression: Overdose Qualifiers: Encounter type: initial encounter Injury intent: intentional self-harm Qualified Code(s): T50.902A - Poisoning by unspecified drugs, medicaments and biological substances, intentional self-harm, initial encounter Admit Date/Time: 03/11/19 00:21 Admit Provider: Brandin Torres
[2019-03-10 23:36] LABS: Add Manual Diff / Slide Review NO; Basophils Absolute Auto 100 /uL (0-100); Basophils Percent Auto 0.6 % (0-2); Eosinophils Absolute Auto 300 /uL (0-450); Eosinophils Percent Auto 4.1 % (2-4); Hematocrit 38.8 % (36-46); Hemoglobin 12.4 g/dL (12.0-16.0); Lymphocytes Absolute Auto 2700 /uL (1100-4500); Lymphocytes Percent Auto 31.6 % (25-40); Mean Corpuscular Hemoglobin 25.9 PG (26-34); Mean Corpuscular Volume 80.8 fL (80-100); Monocytes Absolute Auto 500 /uL (0-900); Monocytes Percent Auto 6.1 % (3-14); Neutrophils Absolute Auto 4900 /uL (1500-7000); Neutrophils Percent Auto 57.6 % (50-75); Platelet Count 295 X10^3/uL (150-400); Red Blood Cell Count 4.81 X10^6/uL (4.0-5.2); Red Cell Distribution Width 14.7 % (11.6-14.8); White Blood Cell Count 8.5 X10^3/uL (4.5-11.0)
[2019-03-10 23:41] LABS: HEMOLYSIS < 15 (0-50)
[2019-03-10 23:43] LABS: Lactate (Lactic Acid) 1.5 mmol/L (0.7-2.1)
[2019-03-10 23:47] LABS: Acetaminophen < 10 ug/mL (10-30); Alanine Aminotransferase 21 IU/L (9-52); Albumin Globulin Ratio 1.4 (1.0-2.8); Alkaline Phosphatase 58 U/L (38-126); Aspartate Aminotransferase 26 IU/L (14-36); BUN Creatinine Ratio 16.7 (6-22); Bilirubin Total 0.2 mg/dL (0.2-1.3); Blood Urea Nitrogen 10 mg/dL (7-17); Calcium 8.9 mg/dL (8.4-10.2); Carbon Dioxide 24 mmol/L (22-32); Chloride 112 mmol/L (98-107); Estimated Glomerular Filt Rate > 60.0 mL/min (>60); Ethanol (ETOH) < 10 mg/dL; Globulin 2.9 g/dL (1.7-4.1); Glucose 113 mg/dL (70-100); Lipase 62 U/L (23-300); Potassium 3.8 mmol/L (3.4-5.1); Sodium 145 mmol/L (137-145); Total Protein 6.9 g/dL (6.3-8.2)
[2019-03-10 23:48] LABS: Pregnancy Test Serum,Qual Negative (Negative)
[2019-03-10 23:53] LABS: Ketones (Beta-Hydroxybutyrate) 0.14 mmol/L (<0.27)
[2019-03-11] VITALS (27 sets, daily range): BP systolic 97–148; BP diastolic 54–98; PULSE 68–85; RESP 10–22; TEMP 35.8–36.4; O2SAT 90–99; BMI 45.7
[2019-03-11 00:23] LABS: Thyroid Stimulating Hormone 8.69 uIU/mL (0.47-4.68)
[2019-03-11] MEDS: SODIUM CHLORIDE 0.9% 1,000 ML 100 ML IV ×3 (01:40→20:55)
--- NOTE | 2019-03-11 01:51 | PM.HP.1 ---
History of Present Illness Date Patient Seen: 03/11/19 Time Patient Seen: 01:29 Chief complaint: overdosed Narrative: Ms. Anneliese Frausto is a 28-year-old female patient with history significant for bipolar disorder, depression, anxiety, PTSD, ADHD, hypertension and migraines and prior suicidal attempts presents to the ER voluntarily after overdosing on medication. The patient states that at 8:50 this evening she took 100 tablets of 50 mg extended release Seroquel. The patient was seen in the ER 1 month ago on 02/09/2019 where the patient stated she overdosed on clonazepam. At that time the patient evaluated by mental health was transferred to inpatient facility. At this time the patient denies other toxic ingestions including aspirin, Tylenol or alcohol. She states she has been under stress at home and this month is the anniversary of her grandmothers passing to whom she was very close. The patient further reports escalating symptoms developing auditory hallucinations and hearing voices for the last week. She reports that she has been compliant with all her medications. At the time of evaluation the patient is lethargic but arousable to verbal stimulus and responds appropriately to questions albeit speech somewhat slurred. She denies recent illness, fevers or chills, headache or dizziness, chest pain or palpitations, shortness of breath cough or wheezing. She reports no abdominal pain and has no nausea vomiting and denies changes in bowel habits or dysuria. Upon arrival in the ER the patient was found to be afebrile with a temperature of 97.6?, heart rate is 78, blood pressure 127/74, respirations of 19 and saturating 98% on room air. Patient was awake cooperative and responsive and poison Control consulted by the ER provider. EKG was obtained finding sinus rhythm with ventricular rate of 79, P year interval is 144 milliseconds QRS 101 milliseconds, QTC is 455 milliseconds. On CBC she has white count of 8.5, hemoglobin of 12.4 and hematocrit of 38.8 with platelets of 295. Her tox screen was negative for Tylenol or aspirin. On chemistry her electrolytes are within normal limits she has a glucose of 113. Her LFTs are within normal limits and she has a negative serum . TSH was obtained and elevated at 8.69. The patient is admitted to the hospital for moderate to severe Seroquel overdose requiring close evaluation continues monitoring following suicidal attempt. Patient History Medical History Bipolar 1 disorder (Acute) ADHD (attention deficit hyperactivity disorder) (Chronic Unknown) Anxiety (Chronic Unknown) Depression (Chronic Unknown) Generalized headaches (Chronic Unknown) Hypertension (Chronic 2012) Migraines (Chronic Unknown) PTSD (post-traumatic stress disorder) (Chronic Unknown) Hx of suicide attempt (Resolved Unknown) Surgical History Hx of section (Resolved Unknown) Hx of myringotomy (Resolved Unknown) Hx of tonsillectomy (Resolved 2004) Family History Father Age: 49 Hypertension Mental health problem Mother Age: 45 Cancer Grandmother Age: 77 Cancer Mental health problem Sister Age: 30 Palsy Social History Smoking Status: Current every day smoker Tobacco: How many years used: 10 alcohol intake: never substance use type: does not use Family & Social History Family History Father Age: 49 Hypertension Mental health problem Mother Age: 45 Cancer Grandmother Age: 77 Cancer Mental health problem Sister Age: 30 Palsy Safety & Behavioral: Feels Safe in Current Yes Environment Suicide Plan Description Specific Tobacco & Substance use: Smoking Status Current every day smoker alcohol intake never alcohol intake frequency 0-2 drinks per day Substance Use Type does not use Meds Home Medications Medication Instructions Recorded Confirmed Type prazosin 5 mg capsule 5 mg PO QPM 12/05/18 03/03/19 History lamotrigine 200 mg PO BEDTIME 02/10/19 03/03/19 History pregabalin 100 mg capsule 100 mg PO TID #90 cap 02/25/19 03/03/19 Rx atenolol 100 mg tablet 100 mg PO DAILY 02/26/19 03/03/19 History lithium carbonate 300 mg capsule 300 mg PO BEDTIME cap 02/26/19 03/03/19 History melatonin 10 mg tablet 10 mg PO BEDTIME PRN 02/26/19 03/03/19 History mirtazapine 15 mg tablet 45 mg PO BEDTIME tab 02/26/19 03/03/19 History olanzapine 5 mg tablet 5 mg PO BEDTIME 02/26/19 03/03/19 History sertraline 100 mg tablet 100 mg PO DAILY 02/26/19 03/03/19 History nicotine (polacrilex) 2 mg gum 2 mg BUCCAL Q2H #100 each 03/03/19 Rx sumatriptan 50 mg tablet See Rx Instructions PO .COMPLEX 03/09/19 Rx #20 tab Allergies Allergy/AdvReac Type Severity Reaction Status Date / Time No Known Drug Allergies Allergy Verified 03/03/19 13:45 Review of Systems Review of Systems All systems reviewed & are unremarkable except as noted in HPI and below Exam Vital Signs (past 8 hours): - 03/10/19 23:23 03/11/19 00:02 03/11/19 00:08 Temperature 97.6 F Pulse Rate 78 80 Respiratory Rate 19 13 Blood Pressure Blood Pressure [Right Arm] 127/74 113/64 Pulse Oximetry 98 03/11/19 00:55 Temperature 97.2 F L Pulse Rate 75 Respiratory Rate 22 Blood Pressure 119/67 Blood Pressure [Right Arm] Pulse Oximetry 96 Oxygen Delivery Method Room Air Narrative Exam Narrative: GENERAL APPEARANCE: well developed, morbidly obese, BMI 47.6, lethargic but cooperative. HEAD: Normocephalic, atraumatic, no scalp lesions. EYES: pupils equal, round, reactive to light and accommodation, sclera non-icteric, extraocular movement intact without nystagmus. EARS: normal external structures, no ear pain NOSE: sinuses non tender to percussion, no rhinorrhea ORAL CAVITY: Oral mucosa is dry without lesions or exudate, palate normal, tongue in midline. THROAT: Unable to visualize posterior pharynx NECK/THYROID: neck supple, no jugular venous distention, trachea midline. LYMPH NODES: no cervical or supraclavicular lymphadenopathy. SKIN: warm and dry, pink with good turgor. HEART: regular rate and rhythm, S1-S2 without murmur, no rubs or gallops, brisk capillary refill, no edema LUNGS: clear to auscultation bilaterally, no coarseness crackles or wheezing, no cough present CHEST: Symmetrical movement, diminished tidal volume no accessory muscle use. ABDOMEN: Soft, obese, no epigastric or abdominal tenderness on palpation, no organomegaly a identified, exam limited by body habitus, active bowel tones. EXTREMITIES: moves all extremities, strength is 5/5 and symmetrical, no deformities or joint effusions. NEUROLOGIC: GCS is 14, patient responsive to verbal stimulus with eye opening becoming alert and oriented to person place and situation, speech is slightly slurred with no other focal neuro deficits. Motor strength normal upper and lower extremities, sensory exam intact to light touch, hearing grossly normal to speech. PSYCH: Lethargic, cooperative, fair eye contact, speech is normal in rate and volume, states her intention was for self-harm, reports auditory hallucinations with hearing voices but not telling her to do things. Objective Labs Result Diagrams: 03/10/19 23:25 03/10/19 23:25 Labs: Laboratory Results - last 24 hr 03/10/19 03/10/19 03/10/19 23:25 23:25 23:25 WBC 8.5 RBC 4.81 Hgb 12.4 Hct 38.8 MCV 80.8 MCH 25.9 L MCHC 32.0 RDW 14.7 Plt Count 295 Neut % (Auto) 57.6 Lymph % (Auto) 31.6 [place] % (Auto) 6.1 Eos % (Auto) 4.1 H Baso % (Auto) 0.6 Neut # (Auto) 4900 Lymph # (Auto) 2700 [place] # (Auto) 500 Eos # (Auto) 300 Baso # (Auto) 100 Sodium 145 Potassium 3.8 Chloride 112 H Carbon Dioxide 24 BUN 10 Creatinine 0.60 Estimated GFR > 60.0 BUN/Creatinine Ratio 16.7 Glucose 113 H Lactate Calcium 8.9 Total Bilirubin 0.2 AST 26 ALT 21 Alkaline Phosphatase 58 Total Protein 6.9 Albumin 4.0 Globulin 2.9 Albumin/Globulin Ratio 1.4 Lipase 62 TSH Serum , Qual Acetaminophen < 10 L Ethyl Alcohol < 10 Ketones 0.14 03/10/19 03/10/19 03/10/19 23:25 23:25 23:25 WBC RBC Hgb Hct MCV MCH MCHC RDW Plt Count Neut % (Auto) Lymph % (Auto) [place] % (Auto) Eos % (Auto) Baso % (Auto) Neut # (Auto) Lymph # (Auto) [place] # (Auto) Eos # (Auto) Baso # (Auto) Sodium Potassium Chloride Carbon Dioxide BUN Creatinine Estimated GFR BUN/Creatinine Ratio Glucose Lactate 1.5 Calcium Total Bilirubin AST ALT Alkaline Phosphatase Total Protein Albumin Globulin Albumin/Globulin Ratio Lipase TSH 8.69 H Serum , Qual Negative Acetaminophen Ethyl Alcohol Ketones Assessment & Plan Assessment & Plan narrative: The patient is admitted to the hospital with moderate to severe overdose of estimated 100 tablets of 50 mg extended release Seroquel in an intentional overdose. The patient is lethargic and requires ongoing cardiac monitoring, close observation and suicidal precautions. 1. Recurrent attempted suicide, Seroquel overdose, present on admission. -patient is self reports taking approximately 100 tablets 50 mg extended release Seroquel at 8:50 this evening. -the patient has had multiple attempted suicides the last documented event was 02/09/2019, seen in [place] ER with self-reported overdose on clonazepam. -extensive mental health history on multiple medications and receiving counseling. -inpatient hospitalization for 72 hour following ER admission on 02/09/2019. -patient mid to the ICU for close observation, and cardiac monitoring. -patient is on suicide precautions. -mental health evaluation when patient is medically clear. 2. Chronic bipolar 1 disorder, active -patient is lethargic following overdose, unknown baseline function and behavior. -the patient presented to the emergency department per herself and is admitted voluntarily, remains cooperative. -patient's psychiatric medications are at bedtime and all are held at this time to be restarted the following day. 3. Chronic hypertension, active. -acceptable blood pressure at the time of evaluation is 119/67. -continue patient's home medication of atenolol 100 mg daily. -hypotension side effect of Seroquel overdose, normal saline 100 cc/hour. 4. Elevated TSH, unknown chronicity, active. -alteration in thyroid associated with Seroquel overdose, TSH is elevated at 8.69. -will recheck thyroid panel including TSH, T3 and T4. 5. Chronic Migraine headaches, stable -patient denies headaches at this time and cannot reported last migraine. -will treat episodically. The patient is voluntarily admitted to the hospital following attempted suicide with Seroquel overdose. She is admitted for close observation related to risks adverse events. The patient is admitted as inpatient with expected length of stay to be greater than 2 midnights. Scores GCS [place] coma scale eye opening: To sound [place] coma scale verbal response: Orientated [place] coma scale motor response: Obey commands Estee coma scale total score: 14
--- NOTE | 2019-03-11 02:34 | PC.NURSE ---
Addendum entered by Millie Kahn R.N. 03/11/19 06:19: Patient continues to sleep, remains very drowsy, does rouse to follow simple directions, slurs that she is in the hospital Am labs drawn and EKG done, SR, no prolonged QTc noted. VSS, SpO2 >94% on RA, no void. Original Note: Patient is admitted to ICU at 0040-Drowsy but oriented x3 and able to answer most questions with slurred speech, neuro checks will be done Q2h and prn. NSR on monitor, VSS, RA SpO2 >94%, HOB elevated. IVF of NS @ 100ml/hr started as ordered. Curtain is open and she is in constant observation of staff. Belongings placed in locked medication room. See assessment notes.
[2019-03-11 04:54] LABS: Add Manual Diff / Slide Review NO; Basophils Absolute Auto 0 /uL (0-100); Basophils Percent Auto 0.6 % (0-2); Eosinophils Absolute Auto 300 /uL (0-450); Eosinophils Percent Auto 3.6 % (2-4); HEMOLYSIS < 15 (0-50); Hematocrit 36.4 % (36-46); Hemoglobin 11.7 g/dL (12.0-16.0); Lymphocytes Absolute Auto 2500 /uL (1100-4500); Lymphocytes Percent Auto 35.3 % (25-40); Mean Corpuscular Hemoglobin 26.1 PG (26-34); Mean Corpuscular Volume 81.6 fL (80-100); Monocytes Absolute Auto 500 /uL (0-900); Monocytes Percent Auto 7.4 % (3-14); Neutrophils Absolute Auto 3800 /uL (1500-7000); Neutrophils Percent Auto 53.1 % (50-75); Platelet Count 273 X10^3/uL (150-400); Red Blood Cell Count 4.46 X10^6/uL (4.0-5.2); White Blood Cell Count 7.2 X10^3/uL (4.5-11.0)
[2019-03-11 05:00] LABS: Alanine Aminotransferase 14 IU/L (9-52); Albumin 3.5 g/dL (3.5-5.0); Albumin Globulin Ratio 1.3 (1.0-2.8); Alkaline Phosphatase 53 U/L (38-126); Aspartate Aminotransferase 19 IU/L (14-36); BUN Creatinine Ratio 15.7 (6-22); Bilirubin Total 0.1 mg/dL (0.2-1.3); Blood Urea Nitrogen 11 mg/dL (7-17); Calcium 8.6 mg/dL (8.4-10.2); Carbon Dioxide 25 mmol/L (22-32); Chloride 111 mmol/L (98-107); Estimated Glomerular Filt Rate > 60.0 mL/min (>60); Globulin 2.8 g/dL (1.7-4.1); Glucose 87 mg/dL (70-100); Potassium 3.9 mmol/L (3.4-5.1); Sodium 143 mmol/L (137-145); Total Protein 6.3 g/dL (6.3-8.2)
[2019-03-11 05:28] LABS: Free T3, Triiodothyronine Free 3.83 pg/mL (2.77-5.27); Free T4, Direct Thyroxine 0.57 ng/dL (0.78-2.19)
[2019-03-11 05:30] LABS: Thyroid Stimulating Hormone 8.55 uIU/mL (0.47-4.68)
[2019-03-11 09:17] LABS: Urine Amphetamines Negative (Negative); Urine Barbiturates Negative (Negative); Urine Benzodiazepines Negative (Negative); Urine Cocaine Positive (Negative); Urine MDMA Negative (Negative); Urine Methadone Negative (Negative); Urine Methamphetamines Negative (Negative); Urine Morphine/Opi cutoff 2000 Negative (Negative); Urine Oxycodone Negative (Negative); Urine Phencyclidine Positive (Negative); Urine Tetrahydrocannabinol Positive (Negative); Urine Tricyclic Antidepressant Positive (Negative)
[2019-03-11 09:22] LABS: Bacteria Urine None Seen; RBC Urine None Seen (0-5/HPF); WBC Urine None Seen (0-5/HPF)
[2019-03-11 09:23] LABS: Appearance Urine UA CLEAR; Bilirubin Urine UA NEGATIVE (NEGATIVE); Color Urine UA YELLOW; Glucose Urine UA NEGATIVE (Negative); Ketones Urine UA NEGATIVE (NEGATIVE); Leukocyte Esterase Urine UA NEGATIVE (NEGATIVE); Nitrite Urine UA NEGATIVE (Negative); Occult Blood Urine UA NEGATIVE (Negative); Protein Urine UA TRACE (Negative); Specific Gravity Urine UA >=1.030 (1.000-1.035); Urobilinogen Urine UA 0.2 E.U./dL (0.2)
[2019-03-11] MEDS: ENOXAPARIN 40 MG/0.4 ML SYRINGE SUBCUT (09:36)
[2019-03-11 09:53] LABS: Culture Indicated Urine Cult Not Indicated; Mucus Urine 1+ (Negative); Squamous Epithelial Cell Urine 5-10 /HPF (0-5/HPF)
--- NOTE | 2019-03-11 10:11 | PM.PN.1 ---
Subjective Date Patient Seen: 03/11/19 Interval history: Patient is a 28-year-old female admitted with intentional Seroquel overdose. She is somnolent and unarousable this a.m.. Vitals are stable. Exam Vital Signs (past 8 hours): - 03/11/19 03:00 03/11/19 04:00 03/11/19 05:00 Temperature 96.9 F L Pulse Rate 77 74 73 Respiratory Rate 12 12 12 Blood Pressure 117/60 112/62 100/56 L Pulse Oximetry 96 92 94 03/11/19 06:00 03/11/19 07:00 03/11/19 07:56 Temperature 97.5 F L Pulse Rate 73 75 76 Respiratory Rate 12 11 L 12 Blood Pressure 97/54 L 107/62 100/60 Pulse Oximetry 94 95 96 03/11/19 08:00 03/11/19 09:00 03/11/19 09:31 Temperature Pulse Rate 75 76 72 Respiratory Rate 12 12 11 L Blood Pressure 100/60 110/70 112/64 Pulse Oximetry 92 96 97 03/11/19 10:00 Temperature Pulse Rate 71 Respiratory Rate 12 Blood Pressure 115/70 Pulse Oximetry 97 Oxygen Delivery Method Room Air Oxygen Flow Rate 0 Narrative Exam Narrative: GENERAL: Young obese female who is somnolent HEENT: Head normocephalic, atraumatic. CHEST: Clear to auscultation bilaterally. CARDIAC: Regular rate and rhythm. ABDOMEN: Nondistended, soft EXTREMITIES: no edema. NEUROLOGICAL: Nonfocal SKIN: Warm, dry, no petechiae, no rash Objective Labs Result Diagrams: 03/11/19 04:40 03/11/19 04:40 Labs: Laboratory Results - last 24 hr 03/10/19 03/10/19 03/10/19 23:25 23:25 23:25 WBC 8.5 RBC 4.81 Hgb 12.4 Hct 38.8 MCV 80.8 MCH 25.9 L MCHC 32.0 RDW 14.7 Plt Count 295 Neut % (Auto) 57.6 Lymph % (Auto) 31.6 [place] % (Auto) 6.1 Eos % (Auto) 4.1 H Baso % (Auto) 0.6 Neut # (Auto) 4900 Lymph # (Auto) 2700 [place] # (Auto) 500 Eos # (Auto) 300 Baso # (Auto) 100 Sodium 145 Potassium 3.8 Chloride 112 H Carbon Dioxide 24 BUN 10 Creatinine 0.60 Estimated GFR > 60.0 BUN/Creatinine Ratio 16.7 Glucose 113 H Lactate Calcium 8.9 Total Bilirubin 0.2 AST 26 ALT 21 Alkaline Phosphatase 58 Total Protein 6.9 Albumin 4.0 Globulin 2.9 Albumin/Globulin Ratio 1.4 Lipase 62 TSH Free T4 Free T3 Serum , Qual Urine Color Urine Appearance Urine pH Ur Specific [place] Urine Protein Urine Glucose (UA) Urine Ketones Urine Occult Blood Urine Nitrate Urine Bilirubin Urine Urobilinogen Ur Leukocyte Esterase Urine RBC Urine WBC Ur Squamous Epith Cells Urine Bacteria Urine Mucus Ur Culture Indicated? Nasal Screen MRSA (PCR) Urine Opiates Screen Ur Oxycodone Screen Urine Methadone Screen Acetaminophen < 10 L Ur Barbiturates Screen U Tricyclic Antidepress Ur Phencyclidine Scrn Ur Amphetamines Screen U Methamphetamines Scrn Ur MDMA Scrn (Ecstasy) U Benzodiazepines Scrn Urine Cocaine Screen U Marijuana (THC) Screen Ethyl Alcohol < 10 Ketones 0.14 03/10/19 03/10/19 03/10/19 23:25 23:25 23:25 WBC RBC Hgb Hct MCV MCH MCHC RDW Plt Count Neut % (Auto) Lymph % (Auto) [place] % (Auto) Eos % (Auto) Baso % (Auto) Neut # (Auto) Lymph # (Auto) [place] # (Auto) Eos # (Auto) Baso # (Auto) Sodium Potassium Chloride Carbon Dioxide BUN Creatinine Estimated GFR BUN/Creatinine Ratio Glucose Lactate 1.5 Calcium Total Bilirubin AST ALT Alkaline Phosphatase Total Protein Albumin Globulin Albumin/Globulin Ratio Lipase TSH 8.69 H Free T4 Free T3 Serum , Qual Negative Urine Color Urine Appearance Urine pH Ur Specific [place] Urine Protein Urine Glucose (UA) Urine Ketones Urine Occult Blood Urine Nitrate Urine Bilirubin Urine Urobilinogen Ur Leukocyte Esterase Urine RBC Urine WBC Ur Squamous Epith Cells Urine Bacteria Urine Mucus Ur Culture Indicated? Nasal Screen MRSA (PCR) Urine Opiates Screen Ur Oxycodone Screen Urine Methadone Screen Acetaminophen Ur Barbiturates Screen U Tricyclic Antidepress Ur Phencyclidine Scrn Ur Amphetamines Screen U Methamphetamines Scrn Ur MDMA Scrn (Ecstasy) U Benzodiazepines Scrn Urine Cocaine Screen U Marijuana (THC) Screen Ethyl Alcohol Ketones 03/11/19 03/11/19 03/11/19 01:50 04:40 04:40 WBC 7.2 RBC 4.46 Hgb 11.7 L Hct 36.4 MCV 81.6 MCH 26.1 MCHC 32.0 RDW 15.0 H Plt Count 273 Neut % (Auto) 53.1 Lymph % (Auto) 35.3 [place] % (Auto) 7.4 Eos % (Auto) 3.6 Baso % (Auto) 0.6 Neut # (Auto) 3800 Lymph # (Auto) 2500 [place] # (Auto) 500 Eos # (Auto) 300 Baso # (Auto) 0 Sodium 143 Potassium 3.9 Chloride 111 H Carbon Dioxide 25 BUN 11 Creatinine 0.70 Estimated GFR > 60.0 BUN/Creatinine Ratio 15.7 Glucose 87 Lactate Calcium 8.6 Total Bilirubin 0.1 L AST 19 ALT 14 Alkaline Phosphatase 53 Total Protein 6.3 Albumin 3.5 Globulin 2.8 Albumin/Globulin Ratio 1.3 Lipase TSH 8.55 H Free T4 0.57 L Free T3 3.83 Serum , Qual Urine Color Urine Appearance Urine pH Ur Specific [place] Urine Protein Urine Glucose (UA) Urine Ketones Urine Occult Blood Urine Nitrate Urine Bilirubin Urine Urobilinogen Ur Leukocyte Esterase Urine RBC Urine WBC Ur Squamous Epith Cells Urine Bacteria Urine Mucus Ur Culture Indicated? Nasal Screen MRSA (PCR) Negative for mrsa Urine Opiates Screen Ur Oxycodone Screen Urine Methadone Screen Acetaminophen Ur Barbiturates Screen U Tricyclic Antidepress Ur Phencyclidine Scrn Ur Amphetamines Screen U Methamphetamines Scrn Ur MDMA Scrn (Ecstasy) U Benzodiazepines Scrn Urine Cocaine Screen U Marijuana (THC) Screen Ethyl Alcohol Ketones 03/11/19 03/11/19 09:00 09:00 WBC RBC Hgb Hct MCV MCH MCHC RDW Plt Count Neut % (Auto) Lymph % (Auto) [place] % (Auto) Eos % (Auto) Baso % (Auto) Neut # (Auto) Lymph # (Auto) [place] # (Auto) Eos # (Auto) Baso # (Auto) Sodium Potassium Chloride Carbon Dioxide BUN Creatinine Estimated GFR BUN/Creatinine Ratio Glucose Lactate Calcium Total Bilirubin AST ALT Alkaline Phosphatase Total Protein Albumin Globulin Albumin/Globulin Ratio Lipase TSH Free T4 Free T3 Serum , Qual Urine Color Yellow Urine Appearance Clear Urine pH 5.0 Ur Specific [place] >=1.030 H Urine Protein Trace H Urine Glucose (UA) Negative Urine Ketones Negative Urine Occult Blood Negative Urine Nitrate Negative Urine Bilirubin Negative Urine Urobilinogen 0.2 Ur Leukocyte Esterase Negative Urine RBC None seen Urine WBC None seen Ur Squamous Epith Cells 5-10 /hpf H Urine Bacteria None seen Urine Mucus 1+ H Ur Culture Indicated? Cult not indicated Nasal Screen MRSA (PCR) Urine Opiates Screen Negative Ur Oxycodone Screen Negative Urine Methadone Screen Negative Acetaminophen Ur Barbiturates Screen Negative U Tricyclic Antidepress Positive H Ur Phencyclidine Scrn Positive H Ur Amphetamines Screen Negative U Methamphetamines Scrn Negative Ur MDMA Scrn (Ecstasy) Negative U Benzodiazepines Scrn Negative Urine Cocaine Screen Positive H U Marijuana (THC) Screen Positive H Ethyl Alcohol Ketones Assessment & Plan Assessment & Plan narrative: The patient is admitted to the hospital with moderate to severe overdose of estimated 100 tablets of 50 mg extended release Seroquel in an intentional overdose. 1. Recurrent attempted suicide, Seroquel overdose, present on admission. -patient is self reports taking approximately 100 tablets 50 mg extended release Seroquel at 8:50 on evening of admission. -the patient has had multiple attempted suicides the last documented event was 02/09/2019, seen in [place] ER with self-reported overdose on clonazepam. -extensive mental health history on multiple medications and receiving counseling. -inpatient hospitalization for 72 hour following ER admission on 02/09/2019. -currently somnolent but otherwise stable -continue IV hydration, neuro checks, telemetry -Garcia catheter for urinary retention -patient is on suicide precautions. -mental health evaluation when patient is medically clear. 2. Chronic bipolar 1 disorder, active -the patient presented to the emergency department per herself and is admitted voluntarily, remains cooperative. -patient's psychiatric medications are at bedtime and all are held at this time 3. Chronic hypertension, active. -BP in normal range -continue patient's home medication of atenolol 100 mg daily when able to take p.o.. -hypotension side effect of Seroquel overdose, normal saline 100 cc/hour. 4. Elevated TSH, unknown chronicity, active. -subclinical -alteration in thyroid associated with Seroquel overdose, TSH is elevated at 8.69, repeat TSH 8.55, free T4 0.57 slightly low, free T3 3.83. 5. Chronic migraine headaches, stable -patient denied headaches at this time -will treat episodically. Continue inpatient management of Seroquel overdose
--- NOTE | 2019-03-11 13:39 | PC.NURSE ---
Day Shift Note Sedated throughout shift, opens eyes to voice briefly and to her name. Minimal tracking with eyes. Does follow commands and able to answer questions intermittently before falling back asleep. Oxygen sats 97% RA, RR in the 11-14 bpm range. NSR in the 70s, QTc WNL. BP stable. Garcia catheter placed this AM per MD order. Bladder scan amount at 0745 175 ml with incontinent void noted. One to one observation at this time, suicide precautions in place. Call light within reach and bed alarm is on.
--- NOTE | 2019-03-11 15:09 | CM.DANOTE ---
DCP/Assessment: Reviewed chart. Patient is a 28yr old female admitted to [facility] with suicidal ideations. PCP is Dr. Arora. Primary payor is 1)[facility] 2)Medicaid. COMMUTATOR TESTER attempted to meet with patient this AM. RN reports patient has been asleep. Per notes, patient intentionally overdosed on 100 tablets of 50mg Seroquel. Patient took the pills and then drove herself to ED. Patient with several suicide attempts over the last 6 months (see records for details). Patient has also had several voluntary admits. Patient will need to be evaluated for mental health and potential voluntary placement when medically appropriate to do so. Per notes, primary mental health dx is Bipolar I. Patient may also benefit from psychiatry consult during this hospitalization. Patient behavior/patterns continue to repeat themselves. Unclear if patient having manic episode, attention seeking, or gain of some sort? P: Pending. MH assessment when medically appropriate and psychiatry consult if needed. ANNE Green Discharge Planning/Care Management CM Discharge Assessment Start: 03/11/19 15:08 Freq: Status: Active Protocol: Document 03/11/19 15:08 KJ (Rec: 03/11/19 15:09 [facility] [id number]) Discharge Planning Assessment Assigned Roving Department End Finder ANNE Green Contact Information Areli Haas (sister) Advance Directives? No Advance Directives on File No History Provided By Patient Medical Record Household Members friend(s) Independent with ADL's Yes Is patient alert and oriented? Not today 03-11-19 Discharge Plan Psychiatric Facility Review Status In Process Next Review Type Continued Stay Review ED Psychiatric Symptoms Assessment Start: 03/10/19 23:34 Freq: Status: Active Protocol: Document 03/10/19 23:34 [facility] (Rec: 03/10/19 23:36 [facility] [id number]) Psychiatric Symptoms Assessment Symptoms/Complaint Suicidal Ideation Onset 1999 History Of Same Yes Context Significant Life Stressor Associated Psychiatric Symptoms Depression Suicidal Ideation If Self Harm Admits Thoughts of Self Harm Has Acted on Plan Intentional Overdose Details of Plan States it has been almost a year since her grandmother passed. Has had a lot of stress at home with her personal relationships. Feels hopeless, because she was discharged from [facility] mental health unit and feels like nothing will get better. Level of Consciousness Alert Appropriate Awake Follows Commands Patient Orientation Name Age Birthday Month Date Year Day of Week Place Situation Patient Behavior/Mood Cooperative Ability to Follow Directions Excellent Patient Cognition Impaired No Affect Description Calm Patient Appearance Disheveled Feelings of Hopelessness Yes Suicide Plan Specific Homicidal Ideation None Nausea/Vomiting None
[2019-03-11] MEDS: PRAZOSIN HCL 5 MG CAPSULE PO (16:58)
[2019-03-11] MEDS: lamoTRIgine 100 MG TABLET 200 MG PO (20:53)
[2019-03-11] MEDS: LITHIUM 300 MG IR CAPSULE PO (20:53)
[2019-03-11] MEDS: OLANZapine 2.5 MG TABLET 5 MG PO (20:54)
[2019-03-11] MEDS: MIRTAZAPINE 15 MG TABLET 45 MG PO (20:54)
--- NOTE | 2019-03-11 21:11 | PC.NURSE ---
2100- Patient states if she were to go home right now I would hurt myself. Patient could not tell me how she would hurt herself and she went on to say that while she is here in the hospital she feels safe. Patient went on to say that even her kids do not motivate her to want to live. Patient has been cooperative and she makes good eye contact when conversing. Patient states she just cannot handle her mental illness. She feels overwhelmed and has started hearing voices more frequently. Patient states she feels she would do something if not in the hospital.
[2019-03-12 04:18] VITALS: BP 149/97; PULSE 63; RESP 16; TEMP 36.1; O2SAT 97
--- NOTE | 2019-03-12 06:24 | PC.NURSE ---
Patient has been drowsy, disoriented to time upon waking but reorients easily, has been cooperative. SR rate 60s-70s, VSS, SpO2 92-97% RA. Curtain open, suicide precautions in place, 1:1 observation.
[2019-03-12] MEDS: SODIUM CHLORIDE 0.9% 1,000 ML 100 ML IV (06:49)
[2019-03-12 07:25] VITALS: BP 144/91; PULSE 74; RESP 24; TEMP 36.3; O2SAT 96
[2019-03-12] MEDS: ENOXAPARIN 40 MG/0.4 ML SYRINGE SUBCUT (08:43)
[2019-03-12] MEDS: ATENOLOL 50 MG TABLET 100 MG PO (08:43)
[2019-03-12] MEDS: PREGABALIN 50 MG CAPSULE 100 MG PO ×3 (08:44→21:01)
[2019-03-12] MEDS: SERTRALINE 50 MG TABLET 100 MG PO (08:44)
[2019-03-12 11:00] VITALS: BP 132/76; PULSE 80; RESP 20; TEMP 36.6; O2SAT 98
--- NOTE | 2019-03-12 13:09 | PM.PN.1 ---
Subjective Date Patient Seen: 03/12/19 Interval history: Patient is a 28-year-old female admitted with intentional Seroquel overdose from previous prescription bottle. Patient is awake and responsive this a.m.. She endorses continued suicidal ideation and not feeling safe to return home. She is maintaining adequate p.o. intake and hydration. Exam Vital Signs (past 8 hours): - 03/12/19 07:25 03/12/19 11:00 Temperature 97.3 F L 98 F Pulse Rate 74 80 Respiratory Rate 24 20 Blood Pressure 144/91 H 132/76 Pulse Oximetry 96 98 Oxygen Delivery Method Room Air Oxygen Flow Rate 0 Narrative Exam Narrative: General: Alert and cooperative female in no acute distress Psychiatric: Affect slightly depressed, not tearful, speech not pressured, thoughts not appearring disorganized, no obvious paranoia Objective Labs Result Diagrams: 03/11/19 04:40 03/11/19 04:40 Assessment & Plan Assessment & Plan narrative: The patient is admitted to the hospital with intention overdose of estimated 100 tablets of 50 mg extended release Seroquel from old Rx. 1. Recurrent attempted suicide, Seroquel overdose, present on admission. -currently awake and responsive, medically stable for discharge to inpatient psychiatric facility -patient self reports taking approximately 100 tablets 50 mg extended release Seroquel at 8:50 on evening of admission. -the patient has had multiple attempted suicides the last documented event was 02/09/2019, seen in [place] ER with self-reported overdose on clonazepam, transfer to [facility] for 72 hour hold. -extensive mental health history, including diagnoses of bipolar 1, chronic anxiety, PTSD, borderline personality disorder -discontinued IV fluids, telemetry -patient is back on routine home medications -care management to assist with voluntary psychiatric placement, also note patient has been followed at [facility] but has new patient appointment in 1 week at [facility] 3. Chronic hypertension, active. -BP in normal range -continue atenolol 100 mg daily 4. Elevated TSH, unknown chronicity, active. -subclinical -alteration in thyroid associated with Seroquel overdose, TSH is elevated at 8.69, repeat TSH 8.55, free T4 0.57 slightly low, free T3 3.83. 5. Chronic migraine headaches, stable -patient denied headaches at this time -will treat episodically.
--- NOTE | 2019-03-12 13:15 | P.PN_ITS ---
Subjective Date Patient Seen: 03/12/19 Interval history: Patient is a 28-year-old female admitted with intentional Seroquel overdose from previous prescription bottle. Patient is awake and responsive this a.m.. She endorses continued suicidal ideation and not feeling safe to return home. She is maintaining adequate p.o. intake and hydration. Exam Vital Signs (past 8 hours): - 03/12/19 07:25 03/12/19 11:00 Temperature 97.3 F L 98 F Pulse Rate 74 80 Respiratory Rate 24 20 Blood Pressure 144/91 H 132/76 Pulse Oximetry 96 98 Oxygen Delivery Method Room Air Oxygen Flow Rate 0 Narrative Exam Narrative: General: Alert and cooperative female in no acute distress Psychiatric: Affect slightly depressed, not tearful, speech not pressured, thoughts not appearring disorganized, no obvious paranoia Objective Labs Result Diagrams: 03/11/19 04:40 03/11/19 04:40 Assessment & Plan Assessment & Plan narrative: The patient is admitted to the hospital with intention overdose of estimated 100 tablets of 50 mg extended release Seroquel from old Rx. 1. Recurrent attempted suicide, Seroquel overdose, present on admission. -currently awake and responsive, medically stable for discharge to inpatient psychiatric facility -patient self reports taking approximately 100 tablets 50 mg extended release Seroquel at 8:50 on evening of admission. -the patient has had multiple attempted suicides the last documented event was 02/09/2019, seen in [place] ER with self-reported overdose on clonazepam, transfer to [facility] for 72 hour hold. -extensive mental health history, including diagnoses of bipolar 1, chronic anxiety, PTSD, borderline personality disorder -discontinued IV fluids, telemetry -patient is back on routine home medications -care management to assist with voluntary psychiatric placement, also note patient has been followed at [facility] but has new patient appointment in [address] [facility] 3. Chronic hypertension, active. -BP in normal range -continue atenolol 100 mg daily 4. Elevated TSH, unknown chronicity, active. -subclinical -alteration in thyroid associated with Seroquel overdose, TSH is elevated at 8.69, repeat TSH 8.55, free T4 0.57 slightly low, free T3 3.83. 5. Chronic migraine headaches, stable -patient denied headaches at this time -will treat episodically.
--- NOTE | 2019-03-12 13:21 | CM.SWNOTE ---
MH Assessment and Social Work Note: From H+P Narrative: Ms. Anneliese Frausto is a 28-year-old female patient with history significant for bipolar disorder, depression, anxiety, PTSD, ADHD, hypertension and migraines and prior suicidal attempts presents to the ER voluntarily after overdosing on medication. According to chart review: 8 ER visits in approx. one year, one visit for SI, one for OD, now presents after intentional OD, active suicidal intent, admitted to ICU Rm 105 Pt comes in w/ tox screen + for: Marijuana, Cocaine, PCP, and Tricyclics Met w/pt and explained SW role. Pt makes good eye contact, she looks and acts younger than her stated age and is very irritated throughout our conversation. When asked how she is feeling, pt states ?fucking irritated?. When asked to elaborate pt admits ?I?m pissed off that all my trys to OD are not working and I keep coming back!?. Social Background: Pt lives w/her friend who she calls her sister, Areli and Valeriaia?s Jono and their young dtr who pt calls her niece (age?). Pt has other friends living in the house, she describes her entire household as not being supportive to her. Pt has two dtrs, Rachel 7 yo and Rachele yo, Rachel, both live w/ grandparents. Pt has some visitation rights, pt is vague re: this history. Pt denies any supports except Vivia. Pt?s Mom lives in [place] and pt states she ?doesn?t give a fuck?. Pt denies current drug use except tobacco and CBD candies. Pt denies alcohol use or any illicit drug use. Pt doesn?t know how Cocaine and PCP got into her system. H/O Treatment: Pt admits she has been in counseling a lot since she was little and was ?recently? diagnosed w/Bipolar disorder. In the last 10 years, pt has been to counselors at [facility], [facility], [facility] and recently started seeing [facility] at [facility]. Pt does not currently see a psychiatrist and can not tell this ANESTHESIA TECHNICIAN who initially prescribed her anti-psychotic medications. Pt lists Remeron, Selz and current dosing of Atenolol (100 down from 200mg) as additions from her recent stay at [facility]. Pt was at [facility] from October 2018-October 2018 for approx. one month. She was at [facility] approx. one month ago and detained for 72 hours, per pt report, for refusing medical care after an intentional OD. After her release from [facility], she got herself into [facility], her stay was 10 days. Current Presentation: Pt admits to current thoughts of suicide and would use pills again if she had the opportunity. Pt admits she is irritated her suicide attempt didn?t work and when asked when the last time was that she felt good pt says ?I haven?t given a fuck about life for a while, like 5 years?. Pt admits to auditory hallucinations that started approx. 3-4 weeks ago that she hears on/off throughout the entire day. She describes hearing people?s voices in conversation when they aren?t there; friends talking and arguing w/each other and TV characters carrying on conversation. The voices are not talking to pt and they are not commanding her in any way. Pt admits to not feeling safe if she were to return home and would like to find a MH facility that might keep her for longer than 10-14 days in order to see how med changes go. Current ANESTHESIA TECHNICIAN recommendation and DCP goals: Pt would likely benefit from additional time w/an inpt. psychiatric team to further evaluate her med regimen and help pt further develop coping strategies. Voluntary treatment will be attempted, pt has [place]. This ANESTHESIA TECHNICIAN will plan to make contact w/ pt?s friend Areli to glean more background information; pt agreeable to this. Pt may require an outpt plan and continued f/u at [facility] if an inpt MH facility can not be secured. SHERI Garcia updated. Berenice Ruiz, ANESTHESIA TECHNICIAN
--- NOTE | 2019-03-12 14:12 | DIET.PN ---
Dietary Progress Note Assessment: 28y F referred to nutrition for high BMI (47.7) Pt has history significant for bipolar disorder, depression, anxiety, PTSD, ADHD, hypertension and migraines and prior suicidal attempts presents to the ER voluntarily after overdosing on medication. Pt refused to speak c RD regarding nutrition, drug nutrient interactions, or diet order. HT: 157.4cm WT: 118.3kg BMI: 47.7 Nutrition Diagnosis: Pt not ready for nutrition intervention r/t medication side effects of high blood lipids, high body weight, altered blood sugar regulation (atypical antipsychotics, zyprexa, remeron) aeb pt stating she does not want to talk about nutrition. Interventions: Pt not appropriate for diet education at this time, will recheck when pt stabilizes mood. Recc continuing low fat diet r/t DNIs. Consider educating pt on DNIs: importance of hydration c lithium, carb consistent diet c atypical antipsychotics, low fat diet r/t lipid alterations c remeron. Monitoring/Evaluations: monitoring PO intake, readiness for education
[2019-03-12 15:36] VITALS: BP 129/63; PULSE 72; RESP 20; TEMP 36.9; O2SAT 95
--- NOTE | 2019-03-12 15:37 | CM.DPNOTE ---
Addendum entered by ANNE Nieto 03/12/19 15:41: Facilities faxed only, need to f/u re beds on 03.13.19 Original Note: Inpt psychiatric facilities attempted today: [facility]
[2019-03-12] MEDS: PRAZOSIN HCL 5 MG CAPSULE PO (17:10)
[2019-03-12 19:51] VITALS: BP 139/72; PULSE 80; RESP 20; TEMP 36.4; O2SAT 94
[2019-03-12] MEDS: LITHIUM 300 MG IR CAPSULE PO (20:56)
[2019-03-12] MEDS: SODIUM CHLORIDE 0.9% FLUSH 10 ML IV (20:56)
[2019-03-12] MEDS: OLANZapine 2.5 MG TABLET 5 MG PO (20:58)
[2019-03-12] MEDS: lamoTRIgine 100 MG TABLET 200 MG PO (20:58)
[2019-03-12] MEDS: MIRTAZAPINE 15 MG TABLET 45 MG PO (20:59)
--- NOTE | 2019-03-12 21:51 | PC.NURSE ---
accepting facilities [facility] and [facility] in [place] have both phoned saying that they will accept pt and EKG has been faxed upon request. Pt voicing that she liked [facility] facility (as she was just there 3 weeks ago) but that she was hoping for a longer term admission to . Asha CM aware of above and has spoken with Ulysses Max from [facility] and will touch base with pt and other facilities for probable DC 03/13.
--- NOTE | 2019-03-12 23:27 | PC.NURSE ---
Addendum entered by Ericka Kapadia CNA 03/12/19 23:33: Pt. is breathing Original Note: Observed pt. at 2300 and 2315 on 03-12-10 Pt. sleeping
--- NOTE | 2019-03-12 23:31 | PC.NURSE ---
At 2330 on 03-12-19 pt. is breathing and sleeping
--- NOTE | 2019-03-12 23:48 | PC.NURSE ---
At 2345 Pt. is breathing and sleeping
[2019-03-12 23:50] VITALS: BP 125/67; PULSE 69; RESP 18; TEMP 37; O2SAT 94
--- NOTE | 2019-03-13 00:14 | PC.NURSE ---
pt. is breathing and sleeping
--- NOTE | 2019-03-13 00:28 | PC.NURSE ---
Pt. is breathing and sleeping
--- NOTE | 2019-03-13 00:44 | PC.NURSE ---
Pt is breathing and sleeping
--- NOTE | 2019-03-13 01:01 | PC.NURSE ---
Pt. is breathing and sleeping
--- NOTE | 2019-03-13 01:27 | PC.NURSE ---
Pt. is breathing and sleeping
--- NOTE | 2019-03-13 01:49 | PC.NURSE ---
pt. is breating and sleeping
--- NOTE | 2019-03-13 02:17 | PC.NURSE ---
pt. is breathing and sleeping
--- NOTE | 2019-03-13 02:38 | PC.NURSE ---
pt. is breathing and sleeping
--- NOTE | 2019-03-13 02:58 | PC.NURSE ---
pt. is breathing and sleeping
[2019-03-13 03:47] VITALS: BP 114/69; PULSE 61; RESP 18; TEMP 36.3; O2SAT 96
--- NOTE | 2019-03-13 03:48 | PC.NURSE ---
pt. is awake went to the bathroom,pt is back in bed, got her 2nd set of vitals, pt is now using her phone
--- NOTE | 2019-03-13 04:28 | PC.NURSE ---
pt is awake and lying in bed using her phone
--- NOTE | 2019-03-13 04:51 | PC.NURSE ---
pt. is still awoke and in bed using her phone
--- NOTE | 2019-03-13 05:21 | PC.NURSE ---
pt is awake and in bed playing on her phone
--- NOTE | 2019-03-13 05:40 | PC.NURSE ---
Pt is awake and sitting on side of bed playing with her phone, she ask for coffee
--- NOTE | 2019-03-13 05:44 | PC.NURSE ---
pt. got up to the bathroom and back to bed, pt is playing on phone and having coffee
--- NOTE | 2019-03-13 06:16 | PC.NURSE ---
pt. is awake in bed playing on phone and drinking her coffee
--- NOTE | 2019-03-13 06:27 | PC.NURSE ---
pt is awake in bed watching tv
--- NOTE | 2019-03-13 06:44 | PC.NURSE ---
Pt.is alert and talkative, ask for coffee laying in bed on phone and watching tv
[2019-03-13 07:00] VITALS: BP 136/94; PULSE 76; RESP 18; TEMP 36.3; O2SAT 95
--- NOTE | 2019-03-13 07:11 | PC.NURSE ---
pt. is awake and alert and talkative, showed pictures of her daughters, used bathroom, playing on phone
[2019-03-13] MEDS: SERTRALINE 50 MG TABLET 100 MG PO (08:15)
[2019-03-13] MEDS: ATENOLOL 50 MG TABLET 100 MG PO (08:16)
[2019-03-13] MEDS: PREGABALIN 50 MG CAPSULE 100 MG PO (08:18)
--- NOTE | 2019-03-13 08:38 | PC.NURSE ---
Addendum entered by Tracy Chowdary R.N. 03/13/19 12:29: report called to matias at [facility] adn pt left here in transport- she was cooperative and compliant Original Note: Pt without complaints - she slept well , reportedly. Removed iv access-and allowed to be up and around in room, her vss, afebrile - reports not having bm x few days but that is not unusual for her- no cramping or distention noted. After breakfast, she is hoping to shower and potentially transfer this date to next chapter in her care- she is aware there are several calls out to facilitites and we are awaiting return calls today.
--- NOTE | 2019-03-13 08:52 | PM.PN.1 ---
Subjective Date Patient Seen: 03/13/19 Time Patient Seen: 08:52 Exam Vital Signs (past 8 hours): - 03/13/19 03:47 03/13/19 07:00 Temperature 97.4 F L 97.3 F L Pulse Rate 61 76 Respiratory Rate 18 18 Blood Pressure 114/69 136/94 H Pulse Oximetry 96 95 Oxygen Delivery Method Room Air Oxygen Flow Rate 0 Objective Labs Result Diagrams: 03/11/19 04:40 03/11/19 04:40 Assessment & Plan Assessment & Plan narrative: 1. Recurrent attempted suicide, Seroquel overdose, present on admission. -currently awake and responsive, medically stable for discharge to inpatient psychiatric facility -patient self reports taking approximately 100 tablets 50 mg extended release Seroquel at 8:50 on evening of admission. -the patient has had multiple attempted suicides the last documented event was 02/09/2019, seen in [place] ER with self-reported overdose on clonazepam, transfer to [facility] for 72 hour hold. -extensive mental health history, including diagnoses of bipolar 1, chronic anxiety, PTSD, borderline personality disorder -discontinued IV fluids, telemetry -patient is back on routine home medications -care management to assist with voluntary psychiatric placement, also note patient has been followed at [facility] but has new patient appointment in 1 week at [facility] 3. Chronic hypertension, active. -BP in normal range -continue atenolol 100 mg daily 4. Elevated TSH, unknown chronicity, active. -subclinical -alteration in thyroid associated with Seroquel overdose, TSH is elevated at 8.69, repeat TSH 8.55, free T4 0.57 slightly low, free T3 3.83. 5. Chronic migraine headaches, stable -patient denied headaches at this time -will treat episodically.
--- NOTE | 2019-03-13 09:47 | PM.DS.1 ---
History of Present Illness Date Patient Seen: 03/13/19 Time Patient Seen: 10:21 Chief complaint: overdosed Narrative: Ms. Anneliese Frausto is a 28-year-old female patient with history significant for bipolar disorder, depression, anxiety, PTSD, ADHD, hypertension and migraines and prior suicidal attempts presents to the ER voluntarily after overdosing on medication. The patient states that at 8:50 this evening she took 100 tablets of 50 mg extended release Seroquel. The patient was seen in the ER 1 month ago on 02/09/2019 where the patient stated she overdosed on clonazepam. At that time the patient evaluated by mental health was transferred to inpatient facility. At this time the patient denies other toxic ingestions including aspirin, Tylenol or alcohol. She states she has been under stress at home and this month is the anniversary of her grandmothers passing to whom she was very close. The patient further reports escalating symptoms developing auditory hallucinations and hearing voices for the last week. She reports that she has been compliant with all her medications. At the time of evaluation the patient is lethargic but arousable to verbal stimulus and responds appropriately to questions albeit speech somewhat slurred. She denies recent illness, fevers or chills, headache or dizziness, chest pain or palpitations, shortness of breath cough or wheezing. She reports no abdominal pain and has no nausea vomiting and denies changes in bowel habits or dysuria. Upon arrival in the ER the patient was found to be afebrile with a temperature of 97.6?, heart rate is 78, blood pressure 127/74, respirations of 19 and saturating 98% on room air. Patient was awake cooperative and responsive and poison Control consulted by the ER provider. EKG was obtained finding sinus rhythm with ventricular rate of 79, P year interval is 144 milliseconds QRS 101 milliseconds, QTC is 455 milliseconds. On CBC she has white count of 8.5, hemoglobin of 12.4 and hematocrit of 38.8 with platelets of 295. Her tox screen was negative for Tylenol or aspirin. On chemistry her electrolytes are within normal limits she has a glucose of 113. Her LFTs are within normal limits and she has a negative serum . TSH was obtained and elevated at 8.69. The patient is admitted to the hospital for moderate to severe Seroquel overdose requiring close evaluation continues monitoring following suicidal attempt. Discharge Providers Date of admission: 03/11/19 00:21 Discharge Date: 03/13/19 Primary care physician: Nigel Arora MD Consults: 03/11/19 01:35 Consult to Dietitian, Adult Routine Comment: Reason For Exam: morbid obesity BMI 45.7 03/11/19 01:36 Consult to Hand Carver Routine Comment: recurrent attempted suicide, last 02/09/2019 Discharge provider: Jey Aquino MD Summary Discharge Diagnosis: 1. Recurrent attempted suicide, Seroquel overdose, present on admission. 3. Chronic hypertension, active. 4. Elevated TSH, unknown chronicity, active. 5. Chronic migraine headaches, stable Hospital Course: 1. Recurrent attempted suicide, Seroquel overdose, present on admission. -currently awake and responsive, medically stable for discharge to inpatient psychiatric facility -patient self reports taking approximately 100 tablets 50 mg extended release Seroquel at 8:50 on evening of admission. -the patient has had multiple attempted suicides the last documented event was 02/09/2019, seen in [place] ER with self-reported overdose on clonazepam, transfer to [facility] for 72 hour hold. -extensive mental health history, including diagnoses of bipolar 1, chronic anxiety, PTSD, borderline personality disorder -Arranged and accepted transfer to [facility] -patient is back on routine home medications -care management to assist with voluntary psychiatric placement, also note patient has been followed at [facility] but has new patient appointment in 1 week at [facility] 3. Chronic hypertension, active. -BP in normal range -continue atenolol 100 mg daily 4. Elevated TSH, unknown chronicity, active. -subclinical -alteration in thyroid associated with Seroquel overdose, TSH is elevated at 8.69, repeat TSH 8.55, free T4 0.57 slightly low, free T3 3.83. -consider dose increase from current dose of 0.175 mg QD 5. Chronic migraine headaches, stable Status at Discharge Cognitive/behavioral status at discharge: oriented Functional status at discharge: independent ambulation Overall status at discharge: patient is back to baseline Time Spent with Patient Less than 30 minutes Exam Vital Signs (past 8 hours): - 03/13/19 03:47 03/13/19 07:00 Temperature 97.4 F L 97.3 F L Pulse Rate 61 76 Respiratory Rate 18 18 Blood Pressure 114/69 136/94 H Pulse Oximetry 96 95 Oxygen Delivery Method Room Air Oxygen Flow Rate 0 Const General: cooperative and healthy appearing Orientation: awake and oriented x3 Resp Effort & Inspection: normal respiratory effort Auscultation: clear to auscultation bilaterally Cardio Rate: regular rate Rhythm: regular rhythm (No murmurs) Extrem General: no pedal edema Psych Appearance: grossly normal Speech and Movement: agitated and pressured speech Mood: congruent mood Affect: normal affect Attitude: cooperative Thought Process: normal Thought Content: normal Judgment: poor Objective Labs Result Diagrams: 03/11/19 04:40 03/11/19 04:40 Discharge Plan Discharge Plan Patient Disposition: Xfer Psychiatric Hosp Other facility: [facility] Transportation: Ambulance Discharge comment: Follow up to be determined after psychiatric hospitalization Discharge Med Rec/Prescriptions Prescriptions: Continued sertraline 100 mg tablet 100 mg PO DAILY RF: 0 lithium carbonate 300 mg capsule 300 mg PO BEDTIME RF: 0 atenolol 100 mg tablet 100 mg PO DAILY RF: 0 olanzapine 5 mg tablet 5 mg PO BEDTIME RF: 0 mirtazapine 15 mg tablet 45 mg PO BEDTIME RF: 0 melatonin 10 mg tablet 10 mg PO BEDTIME PRN (Reason: Sleep) RF: 0 sumatriptan succinate 50 mg tablet See Rx Instructions PO .COMPLEX Qty: 20 RF: 3 pregabalin 100 mg capsule 100 mg PO TID Qty: 90 RF: 0 nicotine (polacrilex) [Nicorette] 2 mg gum 2 mg BUCCAL Q2H Qty: 100 RF: 1 prazosin 5 mg capsule 5 mg PO QPM RF: 0 lamotrigine 200 mg tablet 200 mg PO BEDTIME RF: 0 Follow up/Referrals: Nigel Arora MD [Primary Care Provider] - Discharge Orders: Discharge (Order); Ordered 03/13/19 Ordered By: Jey Aquino Discharge Data Primary Care Provider: Nigel Arora Attending Provider: Brandin Torres Admit Date/Time: 03/11/19 00:21
--- NOTE | 2019-03-13 10:21 | P.DS_ITS ---
History of Present Illness Date Patient Seen: 03/13/19 Time Patient Seen: 10:21 Chief complaint: overdosed Narrative: Ms. Anneliese Frausto is a 28-year-old female patient with history significant for bipolar disorder, depression, anxiety, PTSD, ADHD, hypertension and migraines and prior suicidal attempts presents to the ER voluntarily after overdosing on medication. The patient states that at 8:50 this evening she took 100 tablets of 50 mg extended release Seroquel. The patient was seen in the ER 1 month ago on 02/09/2019 where the patient stated she overdosed on clonazepam. At that time the patient evaluated by mental health was transferred to inpatient facility. At this time the patient denies other toxic ingestions including aspirin, Tylenol or alcohol. She states she has been under stress at home and this month is the anniversary of her grandmothers passing to whom she was very close. The patient further reports escalating symptoms developing auditory hallucinations and hearing voices for the last week. She reports that she has been compliant with all her medications. At the time of evaluation the patient is lethargic but arousable to verbal stimulus and responds appropriately to questions albeit speech somewhat slurred. She denies recent illness, fevers or chills, headache or dizziness, chest pain or palpitations, shortness of breath cough or wheezing. She reports no abdominal pain and has no nausea vomiting and denies changes in bowel habits or dysuria. Upon arrival in the ER the patient was found to be afebrile with a temperature of 97.6?, heart rate is 78, blood pressure 127/74, respirations of 19 and saturating 98% on room air. Patient was awake cooperative and responsive and poison Control consulted by the ER provider. EKG was obtained finding sinus rhythm with ventricular rate of 79, P year interval is 144 milliseconds QRS 101 milliseconds, QTC is 455 milliseconds. On CBC she has white count of 8.5, hemoglobin of 12.4 and hematocrit of 38.8 with platelets of 295. Her tox screen was negative for Tylenol or aspirin. On chemistry her electrolytes are within normal limits she has a glucose of 113. Her LFTs are within normal limits and she has a negative serum . TSH was obtained and elevated at 8.69. The patient is admitted to the hospital for moderate to severe Seroquel overdose requiring close evaluation continues monitoring following suicidal attempt. Discharge Providers Date of admission: 03/11/19 00:21 Discharge Date: 03/13/19 Primary care physician: Nigel Arora MD Consults: 03/11/19 01:35 Consult to Dietitian, Adult Routine Comment: Reason For Exam: morbid obesity BMI 45.7 03/11/19 01:36 Consult to Elastic Yarn Twister Routine Comment: recurrent attempted suicide, last 02/09/2019 Discharge provider: Jey Aquino MD Summary Discharge Diagnosis: 1. Recurrent attempted suicide, Seroquel overdose, present on admission. 3. Chronic hypertension, active. 4. Elevated TSH, unknown chronicity, active. 5. Chronic migraine headaches, stable Hospital Course: 1. Recurrent attempted suicide, Seroquel overdose, present on admission. -currently awake and responsive, medically stable for discharge to inpatient psychiatric facility -patient self reports taking approximately 100 tablets 50 mg extended release Seroquel at 8:50 on evening of admission. -the patient has had multiple attempted suicides the last documented event was 02/09/2019, seen in [facility] with self-reported overdose on clonazepam, transfer to [facility] for 72 hour hold. -extensive mental health history, including diagnoses of bipolar 1, chronic an xiety, PTSD, borderline personality disorder -Arranged and accepted transfer to [facility] -patient is back on routine home medications -care management to assist with voluntary psychiatric placement, also note patient has been followed at [facility] but has new patient appointment in 1 week at [facility] 3. Chronic hypertension, active. -BP in normal range -continue atenolol 100 mg daily 4. Elevated TSH, unknown chronicity, active. -subclinical -alteration in thyroid associated with Seroquel overdose, TSH is elevated at 8.69, repeat TSH 8.55, free T4 0.57 slightly low, free T3 3.83. -consider dose increase from current dose of 0.175 mg QD 5. Chronic migraine headaches, stable Status at Discharge Cognitive/behavioral status at discharge: oriented Functional status at discharge: independent ambulation Overall status at discharge: patient is back to baseline Time Spent with Patient Less than 30 minutes Exam Vital Signs (past 8 hours): - 03/13/19 03:47 03/13/19 07:00 Temperature 97.4 F L 97.3 F L Pulse Rate 61 76 Respiratory Rate 18 18 Blood Pressure 114/69 136/94 H Pulse Oximetry 96 95 Oxygen Delivery Method Room Air Oxygen Flow Rate 0 Const General: cooperative and healthy appearing Orientation: awake and oriented x3 Resp Effort & Inspection: normal respiratory effort Auscultation: clear to auscultation bilaterally Cardio Rate: regular rate Rhythm: regular rhythm (No murmurs) Extrem General: no pedal edema Psych Appearance: grossly normal Speech and Movement: agitated and pressured speech Mood: congruent mood Affect: normal affect Attitude: cooperative Thought Process: normal Thought Content: normal Judgment: poor Objective Labs Result Diagrams: 03/11/19 04:40 03/11/19 04:40 Discharge Plan Discharge Plan Patient Disposition: Xfer Psychiatric Hosp Other facility: [facility] Transportation: Ambulance Discharge comment: Follow up to be determined after psychiatric hospitalization Discharge Med Rec/Prescriptions Prescriptions: Continued sertraline 100 mg tablet 100 mg PO DAILY RF: 0 lithium carbonate 300 mg capsule 300 mg PO BEDTIME RF: 0 atenolol 100 mg tablet 100 mg PO DAILY RF: 0 olanzapine 5 mg tablet 5 mg PO BEDTIME RF: 0 mirtazapine 15 mg tablet 45 mg PO BEDTIME RF: 0 melatonin 10 mg tablet 10 mg PO BEDTIME PRN (Reason: Sleep) RF: 0 sumatriptan succinate 50 mg tablet See Rx Instructions PO .COMPLEX Qty: 20 RF: 3 pregabalin 100 mg capsule 100 mg PO TID Qty: 90 RF: 0 nicotine (polacrilex) [Nicorette] 2 mg gum 2 mg BUCCAL Q2H Qty: 100 RF: 1 prazosin 5 mg capsule 5 mg PO QPM RF: 0 lamotrigine 200 mg tablet 200 mg PO BEDTIME RF: 0 Follow up/Referrals: Nigel Arora MD [Primary Care Provider] - Discharge Orders: Discharge (Order); Ordered 03/13/19 Ordered By: Jey Aquino Discharge Data Primary Care Provider: Nigel Arora Attending Provider: Brandin Torres Admit Date/Time: 03/11/19 00:21
--- NOTE | 2019-03-13 13:18 | CM.DPNOTE ---
Addendum entered by Berenice RuizANNE 03/15/19 08:53: Listened to VM the morning of 03.14.19 from Tom at [facility] P# [phone] stating Anneliese had been authorized for 5 days at [facility] Ref # [id number] dates of service 03.13.19-03.18.19. This NURSE ASSESSOR placed call to specialist Memo Khanna P# [phone] at [facility], left detailed message with this information. JW Original Note: Continued work on Inpt psychiatric facility placement: Received VM this morning from multiple [facility] facilities (faxed) yesterday. Many declined d/t no bed openings. This NURSE ASSESSOR spoke w/ someone at both [facility] and [facility] and they had openings today for admission. Relayed this to pt and she declined [facility]. TC placed again to Karyn at [facility] P# [phone] F# [phone], she explained that the expected length of stay for pt would be 5 days, longer length of stay is possible but unlikely. Relayed this to pt and she remains agreeable but is hopeful that a longer length of stay for Dual diagnosis; MH and addiction therapy is available to her. This NURSE ASSESSOR completed the following tasks to facilitate this DC: -Requested that SHERI Molina fax updated EKG per request of accepting physician Dr Taylor Hernandez and call nursing report to P# [phone]. -Placed call to Ambulance to arrange p/u for 1145, completed BLS form and [facility] trnsf form, both signed by Dr Aquino. Alerted pt, RN, and [facility] and all remain agreeable. -Placed call to [facility] Customer service at P# [phone], requested call trnsf to a motor vehicles supervisor to discuss starting an expedited authorization for an inpt psychiatric stay (Medicaid auth process changed March 02, 2019) -Completed Mental Health Service Prior Authorization Request Form with assist from [facility] staff and faxed Attn: Tom ([facility] Sup) F#[phone] w/supportive clinical information. According to conversation with Karyn at [facility], pt can be transferred today while pre-auth is pending through [facility]. In addition, in conversation w/Tom at [facility], this NURSE ASSESSOR requested that pt have a Swatch Clerk through [facility] to help her navigate MH resources and appointments in the outpt setting; Tom said he would send a referral for a behavioral health Swatch Clerk, pt can expect to receive a call. Relayed above to pt before her DC. P: DC to [facility] via secured BLS. ANNE Nieto
[2019-03-13 17:34] LABS: Triiodothyronine T3 Total 47 ng/dL (76-181)
[2019-03-14 16:08] LABS: Thyroid Peroxidase Antibodies < 1 IU/mL (< 9)
== END 2019-03-13 11:10 | DRG 918 ==
LOC: ED 03-11 00:04 → ICU 03-11 09:15 → AC 07-21 09:07 → ICU 07-21 09:07
PROVIDERS: Admitting Provider Nurse Practitioner Adult Health; Emergency Provider Emergency Medicine; PCP Student in an Organized Health Care Education/Training Program; Visit Provider Nurse Practitioner Adult Health
DX: T43.592A Poisoning by other antipsychotics and neuroleptics, intentional self-harm, initial encounter (principal); F31.89 Other bipolar disorder; R45.851 Suicidal ideations; E66.9 Obesity, unspecified; Z68.42 Body mass index [BMI] 45.0-49.9, adult; R40.2363 Coma scale, best motor response, obeys commands, at hospital admission; R40.2133 Coma scale, eyes open, to sound, at hospital admission; R40.2253 Coma scale, best verbal response, oriented, at hospital admission; F17.210 Nicotine dependence, cigarettes, uncomplicated; F41.9 Anxiety disorder, unspecified; I10 Essential (primary) hypertension; G43.909 Migraine, unspecified, not intractable, without status migrainosus
CPT/HCPCS: 36415; 36591; 80053; 80305; 80320; 80329; 81001; 82009; 83605; 83690; 84439; 84443; 84480; 84481; 84703; 85025; 86376; 87797; 93005; 99283; G0378; G0480; J1650

== ENCOUNTER → 2020-04-12 13:50 | Outpatient (CLI) | payer OTHER, MEDICAID, SELFPAY ==
[2020-03-18 11:25] VITALS: BMI 45.7
[2020-04-13 09:10] LABS: COVID19 Sendout Not Detected (Not Detect)
== END ==
PROVIDERS: PCP Student in an Organized Health Care Education/Training Program; Visit Provider Physician Assistant
DX: Z11.59 Encounter for screening for other viral diseases (principal)
CPT/HCPCS: 87635

== ENCOUNTER 2020-04-15 06:38 | Day surgery (SDC) | payer OTHER, MEDICAID, SELFPAY ==
[2020-03-18 11:25] VITALS: BMI 45.7
[2020-04-11 08:26] VITALS: BMI 50.8
[2020-04-15] VITALS (9 sets, daily range): BP systolic 111–131; BP diastolic 17–88; PULSE 60–82; RESP 10–19; TEMP 35.5–36.9; O2SAT 85–98; BMI 47.0
--- NOTE | 2020-04-15 07:33 | SUR.OPER ---
Lithotomy on padded OR bed, head on pillow, arms secured on padded arm boards at <90 degrees abduction. Legs secured in padded yellow fins stirrups.
--- NOTE | 2020-04-15 07:35 | PM.PREOP ---
Pre-operative Note COVID-19 COVID-19 status: Negative Result date/Date tested (Pos, Neg/Pending): 04/12/20 Interval Note History & Physical reviewed/Exam performed by Physician: Yes Changes to H&P: No
--- NOTE | 2020-04-15 07:36 | P.HPOB_ITS ---
History of Present Illness History of Present Illness Reason for admission: other (Sterilization) Narrative: Anneliese Frausto is a 29 year old female admitted for tubal ligation for sterilization [facility] Medical History (Updated 04/15/20 @ 07:38 by Jaja Sanderson MD) ADHD (attention deficit hyperactivity disorder) (Chronic Unknown) Anxiety (Chronic Unknown) Bipolar 1 disorder (Acute) Depression (Chronic Unknown) Generalized headaches (Chronic Unknown) Hx of suicide attempt (Resolved Unknown) Hypertension (Chronic 2011) Migraines (Chronic Unknown) Overdose (Inactive) PTSD (post-traumatic stress disorder) (Chronic Unknown) Surgical History Hx of section (Resolved Unknown) Hx of myringotomy (Resolved Unknown) Hx of tonsillectomy (Resolved 2003) Family History Father Age: 50 Hypertension Mental health problem Mother Age: 46 Cancer Grandmother Age: 78 Cancer Mental health problem Sister Age: 31 Palsy Social History household members: friend(s) Smoking Status: Current every day smoker Tobacco: How many years used: 10 alcohol intake: never substance use type: does not use Meds Home Medications and Allergies Home Medications Medication Instructions Recorded Confirmed Type prazosin 5 mg capsule 5 mg PO QPM #30 cap 11/17/19 04/15/20 Rx zolpidem 5 mg tablet 5 mg PO BEDTIME PRN #30 tab 11/17/19 04/15/20 Rx trazodone 100 mg tablet 100 mg PO BEDTIME #30 tab 12/07/19 04/15/20 Rx paliperidone palmitate 234 mg/1.5 234 mg IM Q30D #1.5 ml 12/30/19 04/15/20 Rx mL intramuscular syringe quetiapine 150 mg tablet,extended 150 mg PO BEDTIME 03/07/20 04/15/20 History release 24 hr gabapentin 600 mg tablet 600 mg PO TID #270 tab 04/08/20 04/15/20 Rx lorazepam 0.5 mg PO TID PRN 04/15/20 04/15/20 History Allergies Allergy/AdvReac Type Severity Reaction Status Date / Time No Known Drug Allergies Allergy Verified 04/15/20 07:18 Review of Systems Review of Systems Narrative: Patient is requesting tubal ligation for sterilization. She has intense anxiety otherwise no concerns. Patient a 29-year-old para 2 with prior section who has undesired fertility and is requesting permanent sterilization. Patient is aware of all control options and she wishes to undergo a tubal ligation. The [facility] consent form was signed with the patient greater than 30 days ago. She is aware that this is a permanent procedure and cannot be reversed. The signs symptoms and risk of ectopic of 1 in 400 reviewed with the patient. Small risk damage to internal structures such as bowel, bladder, ureters discussed with the patient that might require opening the abdomen or additional surgery to repair. Small risk for infection or bleeding. Consent form for surgery was signed and her questions were answered. Copy offered to the patient. Exam Narrative Exam Narrative: On physical exam the patient's HEENT exam within normal limits. Lungs are clear to auscultation and percussion. Heart is regular rate and rhythm no S3-S4 or murmurs. Abdomen is obese with no palpable organomegaly. Pelvic exam was not performed. Extremities without edema and nontender Assessment & Plan Assessment and plan (1) Sterilization: Status: Acute Assessment & Plan narrative: Patient comes in for bilateral laparoscopic tubal ligation for sterilization COVID-19 COVID-19 status: Negative Result date/Date tested (Pos, Neg/Pending): 04/12/20
[2020-04-15] MEDS: LACTATED RINGERS 1,000 ML 100 ML IV (07:39)
[2020-04-15] MEDS: BUPIVACAINE 0.5% W/ EPI (PF) 30 ML VIAL INJ (08:19)
--- NOTE | 2020-04-15 08:53 | PM.OP.1 ---
Operative Date/Time/Diagnoses Date of procedure: 04/15/20 Time of procedure: 08:53 Pre-op diagnosis: Wish for sterilization Post-op diagnosis: same Procedure & Clinicians Procedure: Laparoscopic bilateral tubal ligation by fulguration Same procedure as scheduled: Yes Indications: Desire to not have any more pregnancies Surgeon: Jaja Sanderson Click Yes if Unassisted: Yes Anesthesia Type: General Operative Notes Findings: Normal tubes, ovaries, uterus, adhesion of the omentum to the anterior abdominal wall Closure Type: primary Specimen(s): none sent Estimated Blood Loss (mL): 1 Procedure in detail: Patient was brought to the operating room where she underwent general anesthesia. She was placed in low yellowfin stirrups and prepped and draped in usual sterile fashion. Pulsatile stockings were in place and functional. Warming was with blankets. A single-tooth tenaculum was placed on the anterior lip of the cervix and the cervix dilated to #6 Hegar dilator. The Kacie uterine manipulator was placed and balloon inflated with 3 mL of air. The area of the incisions were injected with half percent Marcaine with epinephrine. An incision was made in the umbilicus with a scalpel and the Verres needle placed in the abdomen. Confirmation of correct placement of the needle was performed by withdrawing on the syringe and then allowing fluid to fall freely through the needle. The abdomen was insufflated to 4 L of CO2. A 5 mm trocar was placed under direct visualization. A 5 mm trochars were placed in the right lower quadrant under direct visualization after incising the skin. There did not appear to be any damage with placement of the trocars. The right fallopian tube was grasped, cauterized and cut with the PK generator. Some of the adhesion of the omentum to the anterior abdominal wall was cauterized and cut with the PK to allow access to the left fallopian tube. Same procedure was performed on the left fallopian tube. Adequate hemostasis was noted. 20 cc of 0.5% Marcaine with epinephrine was placed over the tubal ligation sites. The CO2 was allowed to escape from the abdomen. The trochars were removed. Skin was closed with 4-0 monocryl. The patient went to recovery room in good condition. Complications: none Post-operative Condition: stable Disposition: same day surgery Plan for aftercare: Routine post laparoscopic tubal ligation
[2020-04-15] MEDS: OXYCODONE/ACETAMINOPHEN 5/325 TABLET 1 TAB PO ×2 (09:05→09:26)
[2020-04-15] MEDS: HYDROMORPHONE 2 MG INJ IV ×3 (09:15→09:25)
== END 2020-04-15 10:12 | disposition home or self-care (01) ==
PROVIDERS: PCP Student in an Organized Health Care Education/Training Program; Referring Provider Student in an Organized Health Care Education/Training Program; Visit Provider Specialist
PROC: (CPT 58671; principal; 2020-04-15 07:45)
DX: Z30.2 Encounter for sterilization (principal); F41.9 Anxiety disorder, unspecified; I10 Essential (primary) hypertension; F17.210 Nicotine dependence, cigarettes, uncomplicated; E66.9 Obesity, unspecified; F31.9 Bipolar disorder, unspecified
CPT/HCPCS: 58670; J1100; J1170; J2250; J2405; J2704; J3010

== ENCOUNTER 2020-04-28 13:46 | Emergency (ER) | payer OTHER, MEDICAID, SELFPAY ==
[2020-03-18 11:25] VITALS: BMI 45.7
[2020-04-28 13:54] VITALS: BP 142/93; PULSE 88; RESP 14; TEMP 36.6; O2SAT 98; BMI 48.4
--- NOTE | 2020-04-28 14:03 | ED.DIZZY ---
HPI - Dizziness General Chief Complaint: Dizziness Stated Complaint: LIGHT HEADED,DIZZY,CRAMPING Time Seen by Provider: 04/28/20 13:53 Source: patient Mode of arrival: Ambulatory Limitations: no limitations History of Present Illness HPI Narrative: Patient is a 29-year-old female is who presents with dizziness ongoing for the last 1 week. She says it is pretty constant she notices it while at rest and moving. She was actually seen and evaluated at [facility] for the same 3 days ago. She said she got IV fluids and was told to increase her fluid intake. So she has been drinking electrolytes and water and still has not had any improvement. She had a tubal ligation done on April 15, to have some lower abdominal cramping however her vaginal bleeding has become significantly last and she says it is very light now. She has no other abdominal pain nausea or vomiting. She has no chest pain heart palpitations. She has no weakness numbness or tingling. She has not passed out. MD complaint: lightheadedness Related Data Home Medications Medication Instructions Recorded Confirmed quetiapine 150 mg tablet,extended 150 mg PO BEDTIME 03/07/20 04/22/20 release 24 hr lorazepam 0.5 mg PO TID PRN 04/15/20 04/22/20 Previous Rx's Medication Instructions Recorded prazosin 5 mg capsule 5 mg PO QPM #30 cap 11/17/19 zolpidem 5 mg tablet 5 mg PO BEDTIME PRN #30 tab 11/17/19 trazodone 100 mg tablet 100 mg PO BEDTIME #30 tab 12/07/19 paliperidone palmitate 234 mg/1.5 234 mg IM Q30D #1.5 ml 12/30/19 mL intramuscular syringe gabapentin 600 mg tablet 600 mg PO TID #270 tab 04/08/20 oxycodone-acetaminophen 2 tab PO Q4-6H PRN #30 tab 04/15/20 meclizine 25 mg PO TID PRN #10 tab 04/28/20 Allergies Allergy/AdvReac Type Severity Reaction Status Date / Time adhesive tape AdvReac Mild Blistering Verified 04/28/20 13:54 and itching Review of Systems Review of Systems ROS Unobtainable: All systems reviewed & are unremarkable except as noted in HPI and below Constitutional Constitutional: Denies chills, Denies fever(s), Denies lethargy and Denies weakness ENT Ears, Nose, Mouth, and Throat: Reports dizziness Cardiovascular Cardiovascular: Denies chest pain, Denies leg edema, Reports lightheadedness and Denies dyspnea Respiratory Respiratory: Denies dyspnea Gastrointestinal Gastrointestinal: Denies abdominal pain, Denies change in bowel habits, Reports cramping, Denies diarrhea, Denies nausea and Denies vomiting Musculoskeletal Musculoskeletal: Denies back pain Integumentary/Breasts Skin/Breast: Denies pruritus, Denies erythema, Denies rash and Denies wounds Neurologic Neurologic: Denies abnormal movements, Denies abnormal speech, Reports dizziness and Denies weakness Patient History Medical History (Updated 04/28/20 @ 15:35 by Leandra Horvath DO) ADHD (attention deficit hyperactivity disorder) (Chronic Unknown) Anxiety (Chronic Unknown) Bipolar 1 disorder (Acute) Depression (Chronic Unknown) Generalized headaches (Chronic Unknown) Hx of suicide attempt (Resolved Unknown) Hypertension (Chronic 2012) Migraines (Chronic Unknown) Overdose (Inactive) PTSD (post-traumatic stress disorder) (Chronic Unknown) Surgical History (Updated 04/22/20 @ 11:27 by Clara Alanis) Hx of section (Resolved Unknown) Hx of myringotomy (Resolved Unknown) Hx of tonsillectomy (Resolved 2003) S/P tubal ligation (Inactive 04/15/20) Family History Father Age: 50 Hypertension Mental health problem Mother Age: 46 Cancer Grandmother Age: 78 Cancer Mental health problem Sister Age: 31 Palsy Social History household members: friend(s) Smoking Status: Current every day smoker Tobacco: How many years used: 10 alcohol intake: never substance use type: does not use Smoking Status: Current every day smoker alcohol intake frequency: 0-2 drinks per day Substance Use Type: marijuana, crack/cocaine and prescription drug Exam Initial Vital Signs Initial Vital Signs: Vital Signs Temperature 97.8 F 04/28/20 13:54 Pulse Rate 88 04/28/20 13:54 Respiratory Rate 14 04/28/20 13:54 Blood Pressure 142/93 H 04/28/20 13:54 Pulse Oximetry 98 04/28/20 13:54 GENERAL: Alert overweight female and in no acute distress. HEENT: Head atraumatic,EOMI, pupils reactive, face symmetric, moist mucous membranes CARDIOVASCULAR: Regular rate and rhythm without murmurs, rubs or gallops. RESPIRATORY: Breath sounds equal bilaterally, no wheezes rales or rhonchi. ABDOMEN: Soft, nontender. Normoactive bowel sounds all 4 quadrants. No guarding or rebound. EXTREMITIES: Normal range of motion, no clubbing or edema. Neurovascularly intact NEUROLOGICAL: Alert and oriented x4.Normal gait and speech. Cranial nerves II through XII grossly intact. Good [id number], good [id number], strength equal bilaterally, no dysarthria or aphasia, sensation in tact to soft touch bilaterally, no visual changes, no facial droop SKIN: Warm, dry, no laceration, no petechiae, no rashes or lesions. Scores NIH Stroke Scale Level of Conciousness: Alert, keenly responsive Ask month/age: Answers both questions correctly. Open/close eyes, close hand: Performs both tasks correctly Best gaze horizontal: Normal Visual abdi: No visual loss Facial palsy: Normal symetrical movement Left arm drift: No drift for full 10 sec Right arm drift: No drift for full 10 sec Left leg drift: No drift for full 10 sec Right leg drift: No drift for full 10 sec Limb ataxia: Absent Sensory on face/arms/legs: Normal, no sensory loss Best language: No aphasia, normal Dysarthria: Normal Extinction or inattention: No abnormality Total NIH Stroke scale score: 0 Course Orders Ordered: ED Orders 04/28/20 14:10 Complete Blood Count AUTO DIFF Stat Comprehensive Metabolic Panel Stat Lipase Stat 04/28/20 14:16 EKG-12 Lead Routine 04/28/20 14:29 Partial Thromboplastin Time Stat Prothrombin Time INR Stat Discontinued Medications Meclizine HCl (Antivert) 25 mg PO NOW ONE Stop: 04/28/20 15:03 Last Admin: 04/28/20 15:06 Dose: 25 mg Documented by: NADINE Vital Signs Vital signs: Vital Signs - 8 hr 04/28/20 13:54 04/28/20 14:34 04/28/20 15:00 Temperature 97.8 F Pulse Rate 88 74 72 Respiratory Rate 14 19 Blood Pressure 142/93 H 127/75 Pulse Oximetry 98 96 94 04/28/20 15:30 Temperature Pulse Rate 77 Respiratory Rate 22 Blood Pressure 131/82 Pulse Oximetry 96 MDM - Dizziness Lab Data Attestation: I reviewed the patient's lab results. Result diagrams: 04/28/20 14:10 04/28/20 14:10 Labs: Lab Results 04/28/20 04/28/20 04/28/20 Range/Units 14:10 14:10 14:29 WBC 8.9 (4.5-11.0) X10^3/uL RBC 5.15 (4.0-5.2) X10^6/uL Hgb 13.9 (12.0-16.0) g/dL Hct 41.5 (36-46) % MCV 80.6 (80-100) fL MCH 26.9 (26-34) PG MCHC 33.4 (30-36) % RDW 14.0 (11.6-14.8) % Plt Count 315 (150-400) X10^3/uL Neut % (Auto) 70.5 (50-75) % Lymph % (Auto) 21.7 L (25-40) % [place] % (Auto) 4.3 (3-14) % Eos % (Auto) 2.7 (2-4) % Baso % (Auto) 0.8 (0-2) % Neut # (Auto) 6300 (2151-7423) /uL Lymph # (Auto) 1900 (2522-5906) /uL [place] # (Auto) 400 (0-900) /uL Eos # (Auto) 200 (0-450) /uL Baso # (Auto) 100 (0-100) /uL PT 11.7 (10.1-12.7) SECONDS INR 1.0 (0.9-1.3) APTT 34 (26.4-36.2) SECONDS Sodium 138 (137-145) mmol/L Potassium 3.7 (3.4-5.1) mmol/L Chloride 104 (98-107) mmol/L Carbon Dioxide 26 (22-32) mmol/L BUN 8 (7-17) mg/dL Creatinine 0.76 (0.52-1.04) mg/dL Estimated GFR > 60.0 (>60) mL/min BUN/Creatinine Ratio 10.5 (6-22) Glucose 125 H (70-100) mg/dL Calcium 9.2 (8.4-10.2) mg/dL Total Bilirubin 0.4 (0.2-1.3) mg/dL AST 27 (14-36) IU/L ALT 33 (<35) IU/L Alkaline Phosphatase 82 (38-126) U/L Total Protein 7.3 (6.3-8.2) g/dL Albumin 4.1 (3.5-5.0) g/dL Globulin 3.2 (1.7-4.1) g/dL Albumin/Globulin Ratio 1.3 (1.0-2.8) Lipase 56 (23-300) U/L Point of Care Testing Test Results Negative Urine Dip Bedside Urine Glucose Negative Bedside Urine Bilirubin - Negative Bedside Urine Ketone - Negative Urine Specific [place] 1.010 Bedside Urine Occult Blood +++ Bedside Urine pH 6.5 Bedside Urine Protein - Negative Bedside Urine Urobilinogen - Negative Bedside Urine Nitrite - Negative Bedside Urine Leukocytes - Negative Esterase ECG Data Attestation: I personally reviewed and interpreted this ECG as follows: Prior ECG tracings: available for review Interpretation: Normal sinus rhythm rate in 90 p.r. interval 146 QRS [address] changes similar to previous EKG MDM Narrative Medical decision making narrative: THE PATIENT IS GIVEN MECLIZINE SHE IS AMBULATORY IN THE ED AND SAYS THAT IT IS HELPING. SHE OVERALL DOES NOT APPEAR ILL. HER ABDOMEN IS SOFT HEMOGLOBIN HEMATOCRIT ARE STABLE. I DO NOT THINK SHE NEEDS ANY IMAGING AT THIS TIME. Discharge Plan Departure Patient Disposition: Home Clinical Impression: Benign paroxysmal positional vertigo Qualifiers: Laterality: unspecified laterality Qualified Code(s): H81.10 - Benign paroxysmal vertigo, unspecified ear Discharge Date/Time: 04/28/20 15:40 Instructions: DI for Dizziness-Nonvertigo Activity Restrictions/Additional Instructions: *You have been diagnosed with benign paroxysmal positional vertigo *What to do: Increased water intake rest *Continue to take medications as directed Meclizine 25 mg every 8 hours if needed for dizziness--> [facility] [place] *Follow up with your primary care provider in 2-3 days *Return to ER if you should have balance problems inability to tolerate food or fluids, increased chest pain increased vaginal bleeding or any new, worsening or concerning symptoms Prescriptions: New meclizine 25 mg tablet 25 mg PO TID PRN (Reason: dizziness) Qty: 10 RF: 0 No Action trazodone 100 mg tablet 100 mg PO BEDTIME Qty: 30 RF: 5 Invega Sustenna 234 mg/1.5 mL syringe 234 mg IM Q30D Qty: 1.5 RF: 0 gabapentin 600 mg tablet 600 mg PO TID Qty: 270 RF: 1 prazosin 5 mg capsule 5 mg PO QPM Qty: 30 RF: 5 zolpidem [Ambien] 5 mg tablet 5 mg PO BEDTIME PRN (Reason: insomnia) Qty: 30 RF: 5 quetiapine [Seroquel XR] 150 mg tablet extended release 24 hr 150 mg PO BEDTIME RF: 0 lorazepam 0.5 mg tablet 0.5 mg PO TID PRN (Reason: Anxiety) RF: 0 oxycodone-acetaminophen 5-325 mg tablet 2 tab PO Q4-6H PRN (Reason: pain) Qty: 30 RF: 0 Referrals: Nigel Arora MD [Primary Care Provider] -
[2020-04-28 14:24] LABS: Add Manual Diff / Slide Review NO; Basophils Absolute Auto 100 /uL (0-100); Basophils Percent Auto 0.8 % (0-2); Eosinophils Absolute Auto 200 /uL (0-450); Eosinophils Percent Auto 2.7 % (2-4); Hematocrit 41.5 % (36-46); Hemoglobin 13.9 g/dL (12.0-16.0); Lymphocytes Absolute Auto 1900 /uL (1100-4500); Lymphocytes Percent Auto 21.7 % (25-40); Mean Corpuscular HGB Conc 33.4 % (30-36); Mean Corpuscular Hemoglobin 26.9 PG (26-34); Mean Corpuscular Volume 80.6 fL (80-100); Monocytes Absolute Auto 400 /uL (0-900); Monocytes Percent Auto 4.3 % (3-14); Neutrophils Absolute Auto 6300 /uL (1500-7000); Neutrophils Percent Auto 70.5 % (50-75); Platelet Count 315 X10^3/uL (150-400); Red Blood Cell Count 5.15 X10^6/uL (4.0-5.2); White Blood Cell Count 8.9 X10^3/uL (4.5-11.0)
[2020-04-28 14:32] LABS: Alanine Aminotransferase 33 IU/L (<35); Albumin 4.1 g/dL (3.5-5.0); Albumin Globulin Ratio 1.3 (1.0-2.8); Alkaline Phosphatase 82 U/L (38-126); Aspartate Aminotransferase 27 IU/L (14-36); BUN Creatinine Ratio 10.5 (6-22); Bilirubin Total 0.4 mg/dL (0.2-1.3); Blood Urea Nitrogen 8 mg/dL (7-17); Calcium 9.2 mg/dL (8.4-10.2); Carbon Dioxide 26 mmol/L (22-32); Chloride 104 mmol/L (98-107); Estimated Glomerular Filt Rate > 60.0 mL/min (>60); Globulin 3.2 g/dL (1.7-4.1); Glucose 125 mg/dL (70-100); HEMOLYSIS < 15 (0-50); Lipase 56 U/L (23-300); Potassium 3.7 mmol/L (3.4-5.1); Sodium 138 mmol/L (137-145); Total Protein 7.3 g/dL (6.3-8.2)
[2020-04-28 14:34] VITALS: PULSE 74; O2SAT 96
[2020-04-28 14:42] LABS: Prothrombin Time 11.7 SECONDS (10.1-12.7)
[2020-04-28 14:44] LABS: PTT Partial Thromboplastin Tim 34 SECONDS (26.4-36.2)
[2020-04-28 15:00] VITALS: BP 127/75; PULSE 72; RESP 19; O2SAT 94
[2020-04-28] MEDS: MECLIZINE HCL 12.5 MG TABLET 25 MG PO (15:06)
[2020-04-28 15:30] VITALS: BP 131/82; PULSE 77; RESP 22; O2SAT 96
== END 2020-04-28 15:40 | disposition home or self-care (01) ==
PROVIDERS: Emergency Provider Emergency Medicine; PCP Student in an Organized Health Care Education/Training Program
DX: H81.10 Benign paroxysmal vertigo, unspecified ear (principal); R10.9 Unspecified abdominal pain
CPT/HCPCS: 36415; 80053; 81003; 81025; 83690; 85025; 85610; 85730; 93005; 99284

== ENCOUNTER → 2020-06-24 13:02 | Outpatient (CLI) | payer OTHER, MEDICAID, SELFPAY ==
[2020-06-23 14:12] VITALS: BMI 45.7
--- NOTE | 2020-06-24 13:05 | DI.RAD.S_ITS ---
PROCEDURE: XR LUMBAR SPINE 2-3V INDICATIONS: Low back pain TECHNIQUE: 3 views of the lumbar spine were acquired. COMPARISON: None. FINDINGS: Bones: 5 [id number] vertebrae are present. Small forming osteophytes are seen at the inferior endplates of L2 and L3. There is normal bony alignment. No vertebral body compression fractures. No suspicious bony lesions. Soft tissues: Overlying bowel gas pattern is normal. No suspicious soft tissue calcifications. IMPRESSION: 1. Minimal degenerative changes. 2. No acute abnormality. Dictated by: Sammy Javed M.D. on 06/24/2020 at 13:43 Approved by: Sammy Javed M.D. on 06/24/2020 at 13:45
== END ==
PROVIDERS: PCP Student in an Organized Health Care Education/Training Program; Referring Provider Student in an Organized Health Care Education/Training Program; Visit Provider Student in an Organized Health Care Education/Training Program
DX: M54.31 Sciatica, right side (principal); M54.5 Low back pain
CPT/HCPCS: 72100

== ENCOUNTER → 2020-12-07 14:26 | Outpatient (CLI) | payer OTHER, MEDICAID, SELFPAY ==
[2020-06-23 14:12] VITALS: BMI 45.7
[2020-12-07] MEDS: COVID-19 VACC #1, MRNA(MOD) 100 MCG/0.5 ML VIAL IM (14:42)
== END ==
PROVIDERS: PCP Student in an Organized Health Care Education/Training Program; Visit Provider Internal Medicine
DX: Z23 Encounter for immunization (principal)
CPT/HCPCS: 0011A; 91301

== ENCOUNTER → 2021-01-04 12:59 | Outpatient (CLI) | payer OTHER, MEDICAID, SELFPAY ==
[2020-06-23 14:12] VITALS: BMI 45.7
[2021-01-04] MEDS: COVID-19 VACC #2, MRNA(MOD) 100 MCG/0.5 ML VIAL IM (13:05)
== END ==
PROVIDERS: PCP Student in an Organized Health Care Education/Training Program; Visit Provider Internal Medicine
DX: Z23 Encounter for immunization (principal)
CPT/HCPCS: 0012A; 91301

== ENCOUNTER → 2021-10-20 17:31 | Outpatient (CLI) | payer OTHER, MEDICAID, SELFPAY ==
[2021-05-10 11:26] VITALS: BMI 45.7
== END ==
PROVIDERS: PCP Student in an Organized Health Care Education/Training Program; Referring Provider Student in an Organized Health Care Education/Training Program; Visit Provider Student in an Organized Health Care Education/Training Program
DX: K52.9 Noninfective gastroenteritis and colitis, unspecified (principal)
CPT/HCPCS: 87045; 87899